=== PATIENT | female | born 1970 | race Caucasian/White ===

== ENCOUNTER 2016-10-23 17:26 | Emergency (ER) | payer SELFPAY ==
[~2016-10-23] VITALS: Ht 152.4 cm; Wt 61.2 kg
--- OUTSIDE RECORDS SUMMARY | 2016-10-23 17:32 | XMS REPORT | Continuity of Care Document ---
Author Author [facility] Organization [facility] Address Unknown Phone Unavailable Allergies Active Description Code Type Severity Reaction Onset Reported/Identified Relationship to Patient Clinical Status Yes meperidine [id number] Drug Allergy Unknown N/A 09/22/2005 Medications Problems Date Dx Coded Attending Type Code Diagnosis Diagnosed By 04/24/2015 COURTNEY LOTT Ot V76.12 Procedures Results Encounters ACCT No. Visit Date/Time Discharge Status Pt. Type Provider Facility Loc./Unit Complaint [id number] 04/08/2015 10:20:00 2014 23:59:59 CLS Outpatient COURTNEY LOTT [facility] [id number] 02/28/2014 08:43:00 2013 23:59:59 CLS Outpatient [id number] 07/24/2013 11:49:00 2012 23:59:59 CLS Outpatient
--- NOTE | 2016-10-23 17:53 | ED Abdominal Pain ---
General Chief Complaint: Abdominal/GI Problems Stated Complaint: ABD PAIN, BLOATING Source of Information: Patient Exam Limitations: No Limitations History of Present Illness Time Seen By Provider: 17:52 Initial Comments To ER with left lower quadrant abdominal pain/left suprapubic abdominal pain that radiates through to her back for the past few days. She is not sure exactly how many. The pain initially began as mild and intermittent but has become more constant. Today she has taken Motrin several times without relief and states that the pain is worsened by coughing and movement. She states that her abdomen is "bloated". There've been no changes in bowel habits with her last bowel movement being this morning and normal. No fevers or chills. No dysuria. No vomiting. She does have a history of a hysterectomy. Timing/Duration: 1-2 Days Severity/Quality: Moderate Location: LLQ Radiation: No Radiation, Back Activities at Onset: None Associated Symptoms: Nausea/Vomiting Allergies and Home Medications Allergies Coded Allergies: Meperidine (Verified Allergy, Unknown, 09/22/05) Home Medications Ciprofloxacin HCl 500 Mg Tablet #14 500 MG PO BID Prescribed by: ELOISA WILLARD on 10/23/161849 Dextroamphetamine/Amphetamine 10 Mg Tablet Unknown Dose PO DAILY (Reported) Hydrocodone/Acetaminophen 1 Each Tablet #14 1 EACH PO Q4H PRN PRN PAIN Prescribed by: ELOISA WILLARD on 10/23/161849 Metronidazole 500 Mg Tablet #21 500 MG PO TID Prescribed by: ELOISA WILLARD on 10/23/161849 Sertraline HCl 50 Mg Tablet 50 MG PO DAILY (Reported) Review of Systems Constitutional: see HPINo chills, No fever EENTM: No Symptoms Reported Respiratory: No Symptoms Reported Cardiovascular: No Symptoms Reported Gastrointestinal: See HPI Abdominal PainDenies Constipated, Denies Diarrhea, Denies Nausea, Denies Vomiting Genitourinary: No Symptoms Reported Musculoskeletal: no symptoms reported Skin: no symptoms reported Psychiatric/Neurological: No Symptoms Reported Endocrine: No Symptoms Reported Hematologic/Lymphatic: No Symptoms Reported Past Rgitqcw-Jimqie-Cwiaym Hx Patient Social History Recent Foreign Travel: No Contact w/Someone Who Travel: No Physical Exam Vital Signs VS - Last 72 Hours, by Label 10/23/16 17:45 Temp 97.8 Pulse 94 Resp 18 B/P 168/97 Pulse Ox 96 Capillary Refill : General Appearance: WD/WN no apparent distress HEENT: PERRL/EOMI normal ENT inspection Neck: non-tender full range of motion Respiratory: normal breath sounds no respiratory distress no accessory muscle use Cardiovascular: regular rate, rhythm no murmur Gastrointestinal: normal bowel sounds soft tenderness (Left lower quadrant) Extremities: normal range of motion non-tender Neurologic/Psychiatric: alert normal mood/affect oriented x 3 Skin: normal color warm/dry Focused Exam Lactic Acid Level Laboratory Tests Test 10/23/16 17:50 Alanine Aminotransferase (ALT/SGPT) 13U/L (0-55) Albumin 4.1G/DL (3.2-4.5) Alkaline Phosphatase 83U/L (40-136) Anion Gap 11MMOL/L (5-14) Aspartate Amino Transf (AST/SGOT) 16U/L (5-34) BUN/Creatinine Ratio 15 Blood Urea Nitrogen 14MG/DL (7-18) Calcium Level 9.2MG/DL (8.5-10.1) Carbon Dioxide Level 27MMOL/L (21-32) Chloride Level 105MMOL/L (98-107) Creatinine 0.95MG/DL (0.60-1.30) Estimat Glomerular Filtration Rate > 60 Glucose Level 83MG/DL (70-105) Potassium Level 3.3MMOL/L (3.6-5.0) L Sodium Level 143MMOL/L (135-145) Total Bilirubin 0.3MG/DL (0.1-1.0) Total Protein 7.0G/DL (6.4-8.2) Progress/Results/Core Measures Results/Orders Lab Results Laboratory Tests Test 10/23/16 17:50 Range/Units Alanine Aminotransferase (ALT/SGPT) 13 0-55 U/L Albumin 4.1 3.2-4.5 G/DL Alkaline Phosphatase 83 40-136 U/L Anion Gap 11 5-14 MMOL/L Aspartate Amino Transf (AST/SGOT) 16 5-34 U/L BUN/Creatinine Ratio 15 Basophils # (Auto) 0.0 0.0-0.1 10^3/uL Basophils (%) (Auto) 0 0-10 % Blood Urea Nitrogen 14 7-18 MG/DL Calcium Level 9.2 8.5-10.1 MG/DL Carbon Dioxide Level 27 21-32 MMOL/L Chloride Level 105 98-107 MMOL/L Creatinine 0.95 0.60-1.30 MG/DL Eosinophils # (Auto) 0.2 0.0-0.3 10^3/uL Eosinophils (%) (Auto) 1 0-10 % Estimat Glomerular Filtration Rate > 60 Glucose Level 83 70-105 MG/DL Hematocrit 42 35-52 % Hemoglobin 14.2 11.5-16.0 G/DL Lymphocytes # (Auto) 1.7 1.0-4.0 X 10^3 Lymphocytes (%) (Auto) 14 12-44 % Mean Corpuscular Hemoglobin 32 25-34 PG Mean Corpuscular Hemoglobin Concent 34 32-36 G/DL Mean Corpuscular Volume 94 80-99 FL Mean Platelet Volume 11.3 H 7.4-10.4 FL Monocytes # (Auto) 1.0 0.0-1.0 X 10^3 Monocytes (%) (Auto) 8 0-12 % Neutrophils # (Auto) 9.2 H 1.8-7.8 X 10^3 Neutrophils (%) (Auto) 76 H 42-75 % Platelet Count 191 130-400 10^3/uL Potassium Level 3.3 L 3.6-5.0 MMOL/L Red Blood Count 4.43 4.35-5.85 10^6/uL Red Cell Distribution Width 14.6 H 10.0-14.5 % Sodium Level 143 135-145 MMOL/L Total Bilirubin 0.3 0.1-1.0 MG/DL Total Protein 7.0 6.4-8.2 G/DL Urine Bacteria FEW H /HPF Urine Bilirubin NEGATIVE NEGATIVE Urine Casts NONE /LPF Urine Clarity SLIGHTLY CLOUDY Urine Color YELLOW Urine Crystals NONE /LPF Urine Culture Indicated YES Urine Glucose (UA) NEGATIVE NEGATIVE Urine Ketones NEGATIVE NEGATIVE Urine Leukocyte Esterase 2+ H NEGATIVE Urine Mucus NEGATIVE /LPF Urine Nitrite NEGATIVE NEGATIVE Urine Protein 1+ H NEGATIVE Urine RBC 5-10 H /HPF Urine RBC (Auto) 3+ H NEGATIVE Urine Specific [place] 1.020 1.016-1.022 Urine Squamous Epithelial Cells >50 H /HPF Urine Urobilinogen 1 NORMAL MG/DL Urine WBC 10-25 H /HPF Urine pH 6 5-9 White Blood Count 12.0 H 4.3-11.0 10^3/uL My Orders Orders-ELOISA WILLARD SPLITTER HAND Cbc With Automated Diff (10/23/16 17:50) Comprehensive Metabolic Panel (10/23/16 17:50) Ua Culture If Indicated (10/23/16 17:50) Saline Lock/Iv-Start (10/23/16 17:50) Fentanyl Injection (Sublimaze Injection (10/23/16 18:00) Ct Abdomen/Pelvis W (10/23/16 18:14) Iohexol Injection (Omnipaque 350 Mg/Ml 1 (10/23/16 18:15) Ns (Ivpb) (Sodium Chloride 0.9% Ivpb Bag (10/23/16 18:15) Urine Culture (10/23/16 17:50) Piperacillin Sodium/Tazobactam (Zosyn Vi (10/23/16 18:45) Ketorolac Injection (Toradol Injection) (10/23/16 19:30) Oxycodone/Apap 5/325mg Tablet (Percocet (10/23/16 19:30) Medications Given in ED Current Medications Medications Dose Ordered Sig/Parmjit Route Start Time Stop Time Status Last Admin Dose Admin Fentanyl Citrate 50 mcg ONCE ONCE IVP 10/23/16 18:00 10/23/16 18:01 DC 10/23/16 18:06 50 MCG Iohexol 100 ml ONCE ONCE IV 10/23/16 18:15 10/23/16 18:16 UNV 10/23/16 18:28 100 ML Piperacillin Sod/ Tazobactam Sod/ Sodium Chloride 100 ml @ 200 mls/hr ONCE ONCE IV 10/23/16 18:45 10/23/16 19:14 DC 10/23/16 19:10 200 MLS/HR Sodium Chloride 100 ml 100 ml ONCE ONCE IV 10/23/16 18:15 10/23/16 18:16 UNV 10/23/16 18:28 80 ML Vital Signs/I&O Vital Sign - Last 12Hours 10/23/16 17:45 Temp 97.8 Pulse 94 Resp 18 B/P 168/97 Pulse Ox 96 Departure Communication Progress Notes 1921-She is able to tolerate by mouth intake, is without intractable pain nausea or vomiting or any stools. As such she would be a good candidate for outpatient therapy and her CT scan shows acute diverticulitis but no evidence of abscess or free air. Impression Impression: Primary Impression: Diverticulitis of intestine Additional Impression: Urinary tract infection Disposition: HOME, SELF-CARE Condition: Stable Departure-Patient Inst. Decision time for Depature: 18:48 Referrals: RAE TRINIDAD DO (PCP/Family) Primary Care Physician Patient Instructions: Diverticulitis Add. Discharge Instructions: 1. Clear liquids only for the next 12-24 hours. Ater this you may resume a more normal diet but be sure to avoid seeds and nuts such as popcorn 2. Antibiotics as directed 3. Return to ER for any worsening pain fevers or other concerns 4. Follow-up with your regular doctor within 5 days for recheck All discharge instructions reviewed with patient and/or family. Voiced understanding. 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
[2016-10-23] MEDS ORDERED: SERT50TA2 PO (17:55)
[2016-10-23] MEDS ORDERED: DEXT10TA9 PO (17:55)
[2016-10-23] MEDS ORDERED: fentaNYL INJECTION 100 MCG/2 ML AMP IVP ONE (18:00)
[2016-10-23 18:10] LABS: BASOPHILS % (AUTO) 0 % (0-10); BILIRUBIN,URINE NEGATIVE (NEGATIVE); EOSINOPHILS # (AUTO) 0.2 10^3/uL (0.0-0.3); EOSINOPHILS % (AUTO) 1 % (0-10); KETONES,URINE NEGATIVE (NEGATIVE); LEUKOCYTE ESTERASE ,URINE 2+ (NEGATIVE); LYMPHOCYTES # (AUTO) 1.7 X 10^3 (1.0-4.0); LYMPHOCYTES % (AUTO) 14 % (12-44); MEAN CORPUSCULAR HEMOGLOBIN 32 PG (25-34); MEAN CORPUSCULAR HGB CONC 34 G/DL (32-36); MEAN CORPUSCULAR VOLUME 94 FL (80-99); MEAN PLATELET VOLUME 11.3 FL (7.4-10.4); MONOCYTES % (AUTO) 8 % (0-12); NEUTROPHILS # (AUTO) 9.2 X 10^3 (1.8-7.8); NEUTROPHILS % (AUTO) 76 % (42-75); NITRITE,URINE NEGATIVE (NEGATIVE); PH,URINE 6 (5-9); PLATELET COUNT 191 10^3/uL (130-400); PROTEIN,URINE 1+ (NEGATIVE); RED BLOOD COUNT 4.43 10^6/uL (4.35-5.85); RED CELL DISTRIBUTION WIDTH 14.6 % (10.0-14.5); UROBILINOGEN,URINE 1 MG/DL (NORMAL)
[2016-10-23] MEDS ORDERED: NS 100 ML (IVPB) BAG IV ONE (18:15)
[2016-10-23] MEDS ORDERED: IOHEXOL 350 MG/ML 100 ML (OMNIPAQUE 350) VIAL IV ONE (18:15)
[2016-10-23 18:16] LABS: SQUAMOUS EPITHELIAL CELL,UR >50 /HPF
[2016-10-23 18:29] LABS: ALANINE AMINOTRANSFERASE 13 U/L (0-55); ALBUMIN 4.1 G/DL (3.2-4.5); ANION GAP 11 MMOL/L (5-14); ASPARTATE AMINO TRANSFERASE 16 U/L (5-34); BILIRUBIN,TOTAL 0.3 MG/DL (0.1-1.0); BLOOD UREA NITROGEN 14 MG/DL (7-18); BUN/CREATININE RATIO 15; CALCIUM 9.2 MG/DL (8.5-10.1); CARBON DIOXIDE 27 MMOL/L (21-32); CHLORIDE 105 MMOL/L (98-107); CREATININE SERUM 0.95 MG/DL (0.60-1.30); GFR ESTIMATED > 60; GLUCOSE 83 MG/DL (70-105); POTASSIUM 3.3 MMOL/L (3.6-5.0); SODIUM 143 MMOL/L (135-145)
[2016-10-23] MEDS ORDERED: PIPERACILLIN SODIUM/TAZOBACTAM 4.5 GM in NS (IVPB) 100 ML IV ONE (18:45)
[2016-10-23] MEDS ORDERED: METR500T PO (18:50)
[2016-10-23] MEDS ORDERED: CIPR-225 PO (18:50)
[2016-10-23] MEDS ORDERED: HYDR-757 PO (18:50)
--- NOTE | 2016-10-23 19:10 | Diagnostic Imaging Report ---
PROCEDURE: CT abdomen and pelvis with contrast. TECHNIQUE: Multiple contiguous axial images were obtained through the abdomen and pelvis after administration of intravenous contrast. INDICATION: Abdominal pain with bloating. Left lower quadrant tenderness. Previous hysterectomy. COMPARISON: Correlation with plain films from August 14, 2010. FINDINGS: The visualized lung bases demonstrates mild dependent atelectasis and are otherwise clear. The liver demonstrates no evidence of a focal intrahepatic abnormality. The gallbladder is nondistended without radiodense gallstone or biliary dilatation. The spleen is unremarkable. There is no adrenal mass. The kidneys enhance normally and appear nonobstructed. The pancreas is unremarkable. The small and large bowel are normal in caliber without evidence of obstruction. There is abnormal thickening and soft tissue induration demonstrated about the sigmoid colon where there are also diverticula. Findings are compatible with a diverticulitis. There is no abscess or evidence of free air. There is a trace degree of free fluid within the low pelvis. The appendix is normal. Urinary bladder is unremarkable. Patient is status post hysterectomy. There is no pathologic adenopathy. The aorta is normal in caliber. No acute or suspicious osseous abnormality is demonstrated. IMPRESSION: 1. Acute sigmoid diverticulitis without evidence of bowel obstruction, free air or abscess. There is a small degree of free fluid within the low pelvis. 2. Previous hysterectomy. Dictated by: Dictated on workstation # [id number]
[2016-10-23] MEDS ORDERED: oxyCODONE/APAP 5/325MG (PERCOCET 5) TABLET PO ONE (19:30)
[2016-10-23] MEDS ORDERED: KETOROLAC 30 MG/ML VIAL IVP ONE (19:30)
[2016-10-23 19:51] VITALS: BP 181/102
== END 2016-10-23 19:51 | disposition home or self-care (01) ==
LOC: EDUNIT# 17:26 → ER 17:28
DX: K57.32 Diverticulitis of large intestine without perforation or abscess without bleeding (principal); N39.0 Urinary tract infection, site not specified
CPT/HCPCS: 36415; 74177; 80053; 81000; 85025; 87088; 96374; 96375

== ENCOUNTER 2018-06-05 20:42 | Emergency (ER) | payer OTHER ==
[~2018-06-05] VITALS: Ht 152.4 cm; Wt 61.2 kg
[~2018-06-05 20:42] MED LIST: CIPR-225 PO; DEXT10TA9 PO; HYDR-4226 PO; METR500T PO; SERT50TA2 PO
[2018-06-05 21:44] LABS: BILIRUBIN,URINE NEGATIVE (NEGATIVE); CLARITY,URINE CLEAR; COLOR,URINE YELLOW; GLUCOSE, URINE (UA) NEGATIVE (NEGATIVE); KETONES,URINE NEGATIVE (NEGATIVE); LEUKOCYTE ESTERASE ,URINE 1+ (NEGATIVE); NITRITE,URINE NEGATIVE (NEGATIVE); PH,URINE 7 (5-9); PROTEIN,URINE NEGATIVE (NEGATIVE); UROBILINOGEN,URINE NORMAL (NORMAL)
[2018-06-05 21:57] LABS: BACTERIA,URINE TRACE /HPF; RBC,URINE 0-2 /HPF; SQUAMOUS EPITHELIAL CELL,UR 0-2 /HPF; WBC,URINE 0-2 /HPF
[2018-06-05] MEDS ORDERED: KETOROLAC 30 MG/ML VIAL IVP ONE (22:00)
--- NOTE | 2018-06-05 22:00 | ED Abdominal Pain ---
General Stated Complaint: R SIDE LOWER BACK PAIN Source of Information: Patient Exam Limitations: No Limitations History of Present Illness Date Seen by Provider: Jun 05, 2018 Time Seen by Provider: 21:42 Initial Comments The patient presents to the ER by private conveyance with chief complaint that since Tuesday, 4 days now she's been having some right lower quadrant abdominal pain that radiates to her right back. She has no history of kidney stones. She has a history of endometriosis for which Dr. Hui took her uterus and ovaries bilaterally. She's also had a times one but no other abdominal surgeries. She's not having any nausea but she does have pain gets worse with movement. She went to the ER at [place] they did a CT scan some blood and urine on Tuesday, 2 days ago and told her they thought she was constipated. She went home drink a lot of magnesium oxide on Tuesday and had multiple bowel movements which made no difference in her pain. It's continued to get worse. She rates it about a 7 out of 10 presently. She's been using Tylenol, Motrin and the tramadol that she was given from the ER. She is also on Zoloft and Adderall for her chronic depression and ADHD. She's had no fevers but she is having some chills. No rash. No history of back problems or surgery. No trauma. She has no painful urination or hematuria. No dyspareunia and she is in a monogamous relationship. She denies any discharge or history of STI's. Allergies and Home Medications Allergies Coded Allergies: meperidine (Verified Allergy, Unknown, 09/22/05) Home Medications Ciprofloxacin HCl 500 Mg Tablet, 500 MG PO BID Prescribed by: ELOISA WILLARD on 10/23/161849 Dextroamphetamine/Amphetamine 10 Mg Tablet, Unknown Dose PO DAILY, (Reported) Hydrocodone/Acetaminophen 1 Each Tablet, 1 EACH PO Q4H PRN for PAIN Prescribed by: ELOISA WILLARD on 10/23/161849 Metronidazole 500 Mg Tablet, 500 MG PO TID Prescribed by: ELOISA WILLARD on 10/23/161849 Sertraline HCl 50 Mg Tablet, 50 MG PO DAILY, (Reported) Patient Home Medication List Home Medication List Reviewed: Yes Review of Systems Review of Systems Constitutional: No chills, No diaphoresis EENTM: No Blurred Vision, No Double Vision Respiratory: Denies Cough, Denies Shortness of Air Cardiovascular: Denies Chest Pain, Denies Edema Gastrointestinal: See HPI; Denies Abdomen Distended; Abdominal Pain Genitourinary: Denies Burning, Denies Discharge Musculoskeletal: see HPI, back pain; No joint pain Skin: No change in color, No lumps Psychiatric/Neurological: Denies Anxiety, Denies Depressed Past Ygzehio-Hmjccz-Qwwsdl Hx Patient Social History Alcohol Use: Regular Use Alcohol Beverage of Choice: Beer (2-3 week) Recreational Drug Use: No Smoking Status: Current Everyday Smoker Type Used: Cigarettes (0.5 ppd) Recent Foreign Travel: No Contact w/Someone Who Travel: No 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 oz. [id number]; BMI Method:Stated General Appearance: WD/WN, mild distress HEENT: PERRL/EOMI Respiratory: lungs clear, normal breath sounds, no respiratory distress Cardiovascular: normal peripheral pulses, regular rate, rhythm, no edema Peripheral Pulses: 2+ Dorsalis Pedis (R), 2+ Left Dors-Pedis (L) Gastrointestinal: normal bowel sounds, soft, tenderness (Right lower quadrant without rebound tenderness at McBurney's point), other (Negative for Price sign ) Back: normal inspection, CVA tenderness (R) Neurologic/Psychiatric: alert, oriented x 3 Progress/Results/Core Measures Results/Orders Lab Results Laboratory Tests Test 06/05/18 21:30 06/05/18 22:05 Range/Units Urine Color YELLOW Urine Clarity CLEAR Urine pH 7 5-9 Urine Specific [place] 1.010 L 1.016-1.022 Urine Protein NEGATIVE NEGATIVE Urine Glucose (UA) NEGATIVE NEGATIVE Urine Ketones NEGATIVE NEGATIVE Urine Nitrite NEGATIVE NEGATIVE Urine Bilirubin NEGATIVE NEGATIVE Urine Urobilinogen NORMAL NORMAL MG/DL Urine Leukocyte Esterase 1+ H NEGATIVE Urine RBC (Auto) 1+ H NEGATIVE Urine RBC 0-2 /HPF Urine WBC 0-2 /HPF Urine Squamous Epithelial Cells 0-2 /HPF Urine Crystals NONE /LPF Urine Bacteria TRACE /HPF Urine Casts NONE /LPF Urine Mucus NEGATIVE /LPF Urine Culture Indicated NO Urine Test NEGATIVE NEGATIVE Urine Opiates Screen NEGATIVE NEGATIVE Urine Oxycodone Screen NEGATIVE NEGATIVE Urine Methadone Screen NEGATIVE NEGATIVE Urine Propoxyphene Screen NEGATIVE NEGATIVE Urine Barbiturates Screen NEGATIVE NEGATIVE Ur Tricyclic Antidepressants Screen NEGATIVE NEGATIVE Urine Phencyclidine Screen NEGATIVE NEGATIVE Urine Amphetamines Screen POSITIVE H NEGATIVE Urine Methamphetamines Screen NEGATIVE NEGATIVE Urine Benzodiazepines Screen NEGATIVE NEGATIVE Urine Cocaine Screen NEGATIVE NEGATIVE Urine Cannabinoids Screen NEGATIVE NEGATIVE White Blood Count 10.8 4.3-11.0 10^3/uL Red Blood Count 4.26 L 4.35-5.85 10^6/uL Hemoglobin 13.6 11.5-16.0 G/DL Hematocrit 41 35-52 % Mean Corpuscular Volume 96 80-99 FL Mean Corpuscular Hemoglobin 32 25-34 PG Mean Corpuscular Hemoglobin Concent 33 32-36 G/DL Red Cell Distribution Width 14.7 H 10.0-14.5 % Platelet Count 199 130-400 10^3/uL Mean Platelet Volume 11.2 H 7.4-10.4 FL Neutrophils (%) (Auto) 71 42-75 % Lymphocytes (%) (Auto) 21 12-44 % Monocytes (%) (Auto) 6 0-12 % Eosinophils (%) (Auto) 1 0-10 % Basophils (%) (Auto) 1 0-10 % Neutrophils # (Auto) 7.7 1.8-7.8 X 10^3 Lymphocytes # (Auto) 2.3 1.0-4.0 X 10^3 Monocytes # (Auto) 0.7 0.0-1.0 X 10^3 Eosinophils # (Auto) 0.1 0.0-0.3 10^3/uL Basophils # (Auto) 0.1 0.0-0.1 10^3/uL Sodium Level 139 135-145 MMOL/L Potassium Level 3.5 L 3.6-5.0 MMOL/L Chloride Level 101 98-107 MMOL/L Carbon Dioxide Level 28 21-32 MMOL/L Anion Gap 10 5-14 MMOL/L Blood Urea Nitrogen 19 H 7-18 MG/DL Creatinine 1.07 0.60-1.30 MG/DL Estimat Glomerular Filtration Rate 55 BUN/Creatinine Ratio 18 Glucose Level 90 70-105 MG/DL Calcium Level 9.6 8.5-10.1 MG/DL Corrected Calcium 9.4 8.5-10.1 MG/DL Total Bilirubin 0.2 0.1-1.0 MG/DL Aspartate Amino Transf (AST/SGOT) 24 5-34 U/L Alanine Aminotransferase (ALT/SGPT) 17 0-55 U/L Alkaline Phosphatase 74 40-136 U/L C-Reactive Protein High Sensitivity 0.38 0.00-0.50 MG/DL Total Protein 7.3 6.4-8.2 GM/DL Albumin 4.3 3.2-4.5 GM/DL My Orders Orders - BRIGIDA NEWTON Ua Culture If Indicated (06/05/18 20:55) Urine Bedside (06/05/18 20:55) Cbc With Automated Diff (06/05/18 21:52) Comprehensive Metabolic Panel (06/05/18 21:52) Hs C Reactive Protein (06/05/18 21:52) Drug Screen Stat (Urine) (06/05/18 21:52) Saline Lock/Iv-Start (06/05/18 21:52) Ketorolac Injection (Toradol Injection) (06/05/18 22:00) Ct Abd/Pelvis Wo(Kidney Stone) (06/05/18 22:07) Hcg,Qualitative Urine (06/05/18 22:17) Medications Given in ED Current Medications Medications Dose Ordered Sig/Parmjit Route Start Time Stop Time Status Last Admin Dose Admin Ketorolac Tromethamine 30 mg ONCE ONCE IVP 06/05/18 22:00 06/05/18 22:01 DC 06/05/18 22:12 30 MG Progress Progress Note : Time: 21:58 Progress Note UTI/pyelonephritis versus kidney stone. Discussed the case with ER provider at [place], [place]. Dr. Oneil: He reviewed the patient's note and is pretty much as she described. She received abdominal pelvic CT with IV contrast. There is diverticulosis without diverticulitis. Appendix is well-visualized and there is no primary or secondary signs of appendicitis. Very possible OB and IV contrast study today ureteral calculus could be missed. Diagnostic Imaging Diagonstic Imaging: CT (Without contrast) Plain Films/CT/US/NM/MRI: abdomen, pelvis Comments Mild diverticulosis without diverticulitis. Otherwise CT abdomen and pelvis normal. Appendix is normal and visualized. No free fluid. No bowel obstruction or constipation. Reviewed: Reviewed by Me Departure Impression Primary Impression: Abdominal pain Qualified Codes: R10.31 - Right lower quadrant pain Additional Impression: Acute back pain Qualified Codes: M54.5 - Low back pain Disposition: 01 HOME, SELF-CARE Condition: Stable Departure-Patient Inst. Decision time for Depature: 00:03 Referrals: NO,LOCAL PHYSICIAN (PCP) Primary Care Physician NAHUM SHEPPARD MD Patient Instructions: Acute Abdomen (Belly Pain), Adult (DC) Add. Discharge Instructions: There is no evidence of any life-threatening changes in your belly causing your pain. Possibilities include back pain since her pain did respond well to the NSAIDs or recommend you take Aleve 2 capsules twice a day for the next 1-2 weeks on a schedule. Also could be reactivation of your endometriosis, adhesions or scar tissue forming within the belly and you could follow-up with Dr. 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 You can also use Tylenol 500 mg every 6 hours as needed and if you still cannot stand your pain you can use one tablet of hydrocodone every 6 hours as needed. Hydrocodone will cause constipation and drowsiness. Scripts Hydrocodone Bit/Acetaminophen (Hydrocodone/Acetaminophen 5/325mg Tablet) 1 Tab Tab 1 EACH PO Q6H PRN for PAIN-MODERATE MDD 10 for 7 Days, #10 TAB 0 Refills Prov: BRIGIDA NEWTON 06/06/18 Copy Copies To 1: NAHUM SHEPPARD MD, TITUS J Jun 05, 2018 22:00
[2018-06-05 22:12] LABS: AMPHETAMINE SCREEN, URINE POSITIVE (NEGATIVE); BARBITURATE SCREEN URINE NEGATIVE (NEGATIVE); BENZODIAZEPINES SCREEN URINE NEGATIVE (NEGATIVE); CANNABINOID SCREEN, URINE NEGATIVE (NEGATIVE); COCAINE SCREEN URINE NEGATIVE (NEGATIVE); METHADONE STAT NEGATIVE (NEGATIVE); METHAMPHETAMINE SCREEN URINE S NEGATIVE (NEGATIVE); OPIATE SCREEN URINE NEGATIVE (NEGATIVE); OXYCODONE STAT NEGATIVE (NEGATIVE); PROPOXYPHENE STAT NEGATIVE (NEGATIVE); TRICYCLIC ANTIDEPRESSANTS SCRE NEGATIVE (NEGATIVE)
[2018-06-05 22:13] LABS: BASOPHILS # (AUTO) 0.1 10^3/uL (0.0-0.1); BASOPHILS % (AUTO) 1 % (0-10); EOSINOPHILS # (AUTO) 0.1 10^3/uL (0.0-0.3); EOSINOPHILS % (AUTO) 1 % (0-10); HEMATOCRIT 41 % (35-52); HEMOGLOBIN 13.6 G/DL (11.5-16.0); LYMPHOCYTES # (AUTO) 2.3 X 10^3 (1.0-4.0); LYMPHOCYTES % (AUTO) 21 % (12-44); MEAN CORPUSCULAR HEMOGLOBIN 32 PG (25-34); MEAN CORPUSCULAR HGB CONC 33 G/DL (32-36); MEAN CORPUSCULAR VOLUME 96 FL (80-99); MEAN PLATELET VOLUME 11.2 FL (7.4-10.4); MONOCYTES # (AUTO) 0.7 X 10^3 (0.0-1.0); MONOCYTES % (AUTO) 6 % (0-12); NEUTROPHILS # (AUTO) 7.7 X 10^3 (1.8-7.8); NEUTROPHILS % (AUTO) 71 % (42-75); PLATELET COUNT 199 10^3/uL (130-400); RED BLOOD COUNT 4.26 10^6/uL (4.35-5.85); RED CELL DISTRIBUTION WIDTH 14.7 % (10.0-14.5); WHITE BLOOD COUNT 10.8 10^3/uL (4.3-11.0)
[2018-06-05 22:33] LABS: ALBUMIN 4.3 GM/DL (3.2-4.5); BILIRUBIN,TOTAL 0.2 MG/DL (0.1-1.0); CALCIUM 9.6 MG/DL (8.5-10.1); CREATININE SERUM 1.07 MG/DL (0.60-1.30); POTASSIUM 3.5 MMOL/L (3.6-5.0); TOTAL PROTEIN 7.3 GM/DL (6.4-8.2)
[2018-06-06] MEDS ORDERED: ACHD5005 PO (00:09)
[2018-06-06 00:12] VITALS: BP 161/101
--- NOTE | 2018-06-06 07:17 | Diagnostic Imaging Report ---
PROCEDURE: CT urinary tract, rule out kidney stone. TECHNIQUE: Multiple contiguous axial images were obtained through the abdomen and pelvis without the use of intravenous contrast. INDICATION: Right flank pain COMPARISON: 10/23/2016 FINDINGS: Evaluation of the abdominal viscera is mildly limited without contrast. Lower chest: The lung bases are clear. No pericardial or pleural effusion. Peritoneum: No free intraperitoneal air or fluid. Liver and biliary system: Unenhanced liver is normal. The gallbladder is normal. No biliary duct dilation. Spleen and Pancreas: Spleen is normal. Unenhanced pancreas is grossly normal. Adrenals: Normal. tract: No renal or ureteral calculi. No obstructive uropathy. Hysterectomy. No adnexal mass. GI tract: Stomach is decompressed. No bowel obstruction. No pericolonic inflammatory changes. Sigmoid colon diverticulosis without diverticulitis. Normal appendix. Vasculature and Lymph nodes: Normal caliber aorta. No abdominal or pelvic lymphadenopathy. Musculoskeletal: No concerning osseous lesion. IMPRESSION: 1. No urinary tract calculi or obstructive uropathy. 2. No acute inflammatory process. 3. Findings are in agreement with the preliminary report. Dictated by: Dictated on workstation # [id number]
== END 2018-06-06 00:14 | disposition home or self-care (01) ==
LOC: EDUNIT# 20:42 → ER 20:43
DX: M54.5 Low back pain (principal); R10.31 Right lower quadrant pain; F32.9 Major depressive disorder, single episode, unspecified; F90.9 Attention-deficit hyperactivity disorder, unspecified type; F17.210 Nicotine dependence, cigarettes, uncomplicated; Z88.8 Allergy status to other drugs, medicaments and biological substances; Z98.890 Other specified postprocedural states; Z90.710 Acquired absence of both cervix and uterus
CPT/HCPCS: 36415; 74176; 80053; 80306; 81000; 84703; 85025; 86141; 96374

== ENCOUNTER 2020-02-18 07:47 | Inpatient (IN) | payer OTHER ==
[2020-02-18] VITALS (13 sets, daily range): BP systolic 82–145; BP diastolic 56–98
[~2020-02-18] VITALS: Ht 154 cm; Wt 60.0 kg
[~2020-02-18 07:47] MED LIST changes: +ACHD5005 PO
[2020-02-18] MEDS: NITROGLYCERIN 0.4 MG SL TABS BTL 25'S SL PRN ×3 (08:08→08:27)
[2020-02-18] MEDS ORDERED: ASPIRIN 81 MG CHEW (CHILDREN'S ASA) PO ONE (08:15)
--- NOTE | 2020-02-18 08:15 | Diagnostic Imaging Report ---
INDICATION: Shortness of breath and intermittent chest pain x2 days. History of tobacco use.. TECHNIQUE: Single view chest 8:07 AM. CORRELATION STUDY: None FINDINGS: The heart size, mediastinal configuration and pulmonary vascularity are within normal limits. The lungs are slightly hyperinflated but overall appearing clear with no consolidating infiltrate. There is no significant effusion or pneumothorax. IMPRESSION: 1. Negative for acute abnormality of the chest. Dictated by: Dictated on workstation # [id number]
[2020-02-18 08:19] LABS: BASOPHILS # (AUTO) 0.1 10^3/uL (0.0-0.1); BASOPHILS % (AUTO) 1 % (0-10); EOSINOPHILS # (AUTO) 0.2 10^3/uL (0.0-0.3); EOSINOPHILS % (AUTO) 2 % (0-10); HEMATOCRIT 43 % (35-52); HEMOGLOBIN 14.5 G/DL (11.5-16.0); LYMPHOCYTES # (AUTO) 2.2 X 10^3 (1.0-4.0); LYMPHOCYTES % (AUTO) 24 % (12-44); MEAN CORPUSCULAR HEMOGLOBIN 32 PG (25-34); MEAN CORPUSCULAR HGB CONC 34 G/DL (32-36); MEAN CORPUSCULAR VOLUME 95 FL (80-99); MEAN PLATELET VOLUME 11.7 FL (7.4-10.4); MONOCYTES # (AUTO) 0.5 X 10^3 (0.0-1.0); MONOCYTES % (AUTO) 6 % (0-12); NEUTROPHILS # (AUTO) 6.1 X 10^3 (1.8-7.8); NEUTROPHILS % (AUTO) 67 % (42-75); PLATELET COUNT 218 10^3/uL (130-400); RED CELL DISTRIBUTION WIDTH 14.9 % (10.0-14.5); WHITE BLOOD COUNT 9.1 10^3/uL (4.3-11.0)
--- NOTE | 2020-02-18 08:24 | ED Cardiac General ---
History of Present Illness General Chief Complaint: Chest Pain Stated Complaint: CHEST PAIN; SOB Nursing Triage Note: Has been having shortness of breath and intermittent chest pain x 2 days. Chest pain has been constant today and is currently rated at 6/10. Denies fevers, nausea, or vomiting. Is also complaining of fatigue. Has a cough, but states she is a smoker and normally coughs. Source: patient History of Present Illness Date Seen by Provider: Feb 18, 2020 Time Seen by Provider: 08:00 Initial Comments Patient is a 50-year-old female with history of hypertension, tobaccoism and daily alcohol use who presents with central chest burning, exertional dyspnea and bilateral shoulder pain and numbness. Symptom onset was 2 days ago and gradually progressed. Patient states she feels dizzy lightheaded unable to catch her breath and feeling as though she may pass out. This morning while at work, patient was unable to perform any lifting prompting her to drive to the emergency department. Patient denies history of CAD. Denies fever, cough, sore throat, nausea, vomiting, sweats. No abdominal pain. No leg pain swelling. No history of DVT or PE. Patient does not have menstrual periods. No other acute symptoms or complaints. Timing/Duration: 2-3 days Severity: moderate Location: shoulder Activities at Onset: activity Prior CP/Workup: other Modifying Factors: improves with exercise NTG SL TUB TENDER: No ASA po TUB TENDER: No Associated Systoms: Shortness of Air, Other Allergies and Home Medications Allergies Coded Allergies: meperidine (Verified Allergy, Unknown, 09/22/05) Home Medications Ciprofloxacin HCl 500 Mg Tablet, 500 MG PO BID Prescribed by: ELOISA WILLARD on 10/23/161849 Dextroamphetamine/Amphetamine 10 Mg Tablet, Unknown Dose PO DAILY, (Reported) Hydrocodone Bit/Acetaminophen 1 Tab Tab, 1 EACH PO Q6H PRN for PAIN-MODERATE Prescribed by: BRIGIDA NEWTON on 06/06/18 000 Hydrocodone/Acetaminophen 1 Each Tablet, 1 EACH PO Q4H PRN for PAIN Prescribed by: ELOISA WILLARD on 10/23/161849 Metronidazole 500 Mg Tablet, 500 MG PO TID Prescribed by: ELOISA WILLARD on 10/23/161849 Sertraline HCl 50 Mg Tablet, 50 MG PO DAILY, (Reported) Patient Home Medication List Home Medication List Reviewed: Yes Review of Systems Review of Systems Constitutional: see HPI EENTM: See HPI Respiratory: See HPI Cardiovascular: See HPI Gastrointestinal: See HPI Genitourinary: See HPI Musculoskeletal: see HPI Skin: see HPI Psychiatric/Neurological: See HPI Hematologic/Lymphatic: See HPI Past Ugafvaa-Rdeool-Xupyul Hx Past Med/Social Hx: Reviewed Nursing Past Med/Soc Hx Patient Social History Alcohol Use: Occasionally Uses Number of Drinks Today: AA Alcohol Beverage of Choice: Beer Recreational Drug Use: No Smoking Status: Current Everyday Smoker Type Used: Cigarettes 2nd Hand Smoke Exposure: Yes Recent Foreign Travel: No Contact w/Someone Who Travel: No Recent Infectious Disease Expo: No Recent Hopitalizations: No Immunizations Up To Date Tetanus Booster (TDap): Unknown Seasonal Allergies Seasonal Allergies: No Past Medical History Surgeries: Yes Section, Hysterectomy Respiratory: No Cardiac: Yes Hypertension 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 oz. 61.241366tw; 24.00 BMI Method:Stated General Appearance: No Apparent Distress, WD/WN, Anxious HEENT: PERRL/EOMI, Other Neck: Full Range of Motion, Non Tender, Supple Respiratory: Chest Non Tender, Lungs Clear, Normal Breath Sounds Cardiovascular: Regular Rate, Rhythm, No Edema, Other (negative Homans signs.) Gastrointestinal: Non Tender, Soft Extremity: Swelling Neurologic/Psychiatric: Alert, Oriented x3 Focused Exam Sepsis Stage: Ruled Out Progress/Results/Core Measures Results/Orders Lab Results Laboratory Tests Test 02/18/20 07:57 Range/Units White Blood Count 9.1 4.3-11.0 10^3/uL Red Blood Count 4.52 4.35-5.85 10^6/uL Hemoglobin 14.5 11.5-16.0 G/DL Hematocrit 43 35-52 % Mean Corpuscular Volume 95 80-99 FL Mean Corpuscular Hemoglobin 32 25-34 PG Mean Corpuscular Hemoglobin Concent 34 32-36 G/DL Red Cell Distribution Width 14.9 H 10.0-14.5 % Platelet Count 218 130-400 10^3/uL Mean Platelet Volume 11.7 H 7.4-10.4 FL Neutrophils (%) (Auto) 67 42-75 % Lymphocytes (%) (Auto) 24 12-44 % Monocytes (%) (Auto) 6 0-12 % Eosinophils (%) (Auto) 2 0-10 % Basophils (%) (Auto) 1 0-10 % Neutrophils # (Auto) 6.1 1.8-7.8 X 10^3 Lymphocytes # (Auto) 2.2 1.0-4.0 X 10^3 Monocytes # (Auto) 0.5 0.0-1.0 X 10^3 Eosinophils # (Auto) 0.2 0.0-0.3 10^3/uL Basophils # (Auto) 0.1 0.0-0.1 10^3/uL Sodium Level 143 135-145 MMOL/L Potassium Level 3.6 3.6-5.0 MMOL/L Chloride Level 101 98-107 MMOL/L Carbon Dioxide Level 30 21-32 MMOL/L Anion Gap 12 5-14 MMOL/L Blood Urea Nitrogen 12 7-18 MG/DL Creatinine 0.82 0.60-1.30 MG/DL Estimat Glomerular Filtration Rate > 60 BUN/Creatinine Ratio 15 Glucose Level 93 70-105 MG/DL Calcium Level 9.2 8.5-10.1 MG/DL Corrected Calcium 8.8 8.5-10.1 MG/DL Total Bilirubin 0.3 0.1-1.0 MG/DL Aspartate Amino Transf (AST/SGOT) 19 5-34 U/L Alanine Aminotransferase (ALT/SGPT) 15 0-55 U/L Alkaline Phosphatase 94 40-136 U/L Troponin I < 0.30 <0.30 NG/ML Pro-B-Type Natriuretic Peptide 94.7 H <75.0 PG/ML Total Protein 7.1 6.4-8.2 GM/DL Albumin 4.5 3.2-4.5 GM/DL My Orders Jessie - ZANE SHARMA DO Cbc With Automated Diff (02/18/20 08:02) Comprehensive Metabolic Panel (02/18/20 08:02) Troponin I Fs (02/18/20 08:02) Probnp Fs (02/18/20 08:02) Fibrin Degradation Products (02/18/20 08:02) Chest 1 View Ap/Pa Only (02/18/20 08:02) Aspirin Chewable Tablet (Baby Aspirin Ch (02/18/20 08:15) Nitroglycerin 0.4 Mg Btl 25's (Nitrostat (02/18/20 08:15) Ekg Tracing (02/18/20 08:13) Ekg Tracing (02/18/20 08:23) Coronavirus Sars-Cov-2 So 2018 (02/18/20 08:29) Fentanyl Injection (Sublimaze Injection (02/18/20 08:45) Ondansetron Injection (Zofran Injectio (02/18/20 08:45) Heparin Drip 49228 Unit/500ml (Heparin (02/18/20 08:34) Heparin (Bolus Per Protocol) (Heparin (B (02/18/20 08:34) Protime With Inr (02/18/20 08:34) Nitro Drip 83605 Mcg/D5w (Nitroglycerin (02/18/20 08:45) Ticagrelor Tablet (Brilinta Tablet) (02/18/20 09:00) Medications Given in ED Current Medications Medications Dose Ordered Sig/Parmjit Route Start Time Stop Time Status Last Admin Dose Admin Aspirin 324 mg ONCE ONCE PO 02/18/20 08:15 02/18/20 08:16 DC 02/18/20 08:08 324 MG Nitroglycerin 1 TAB Q 5 MIN X 3 NEEDED PRN SL 02/18/20 08:15 02/18/20 08:27 0.4 MG Vital Signs/I&O 02/18/20 07:55 Temp 36.4 Pulse 62 Resp 16 B/P (MAP) 160/93 (115) Pulse Ox 99 Blood Pressure Mean: 115 Departure Communication (Admissions) EKG #1: T-wave inversions in V1 and V2 and aVL. ST depression in lateral leads. EKG #2: Unchanged CXR: NAD 324 mg of baby aspirin and nitroglycerin 3 given. Blood pressure dyspnea and symptoms partially improved. EKG concerning for acute coronary syndrome. NTG and heparin drips initiated, fentanyl given. Labs reviewed. Dr. Abad accepts patient. Dr. Esquivel consulted. Brilinta given. Patient NPO. Impression Primary Impression: Acute coronary syndrome Disposition: 09 ADMITTED INPATIENT Condition: Stable Admissions Decision to Admit Reason: Admit from ER (General) Transfer Transfer Reason: Exceeds level of care Time Spoke to Accepting Phy: 08:51 Transfer Time: 08:51 Method of Transfer: EMS Departure-Patient Inst. Referrals: NAHUM WRIGHT MD (PCP/Family) Primary Care Physician ZANE SHARMA DO Feb 18, 2020 08:24
[2020-02-18] MEDS ORDERED: HEParin DRIP 25000 UNIT/500ML 500 ML IV ONE (08:34)
[2020-02-18] MEDS ORDERED: HEParin 1000 UNIT/ML (10ML VIAL) FOR BOLUS IV ONE (08:34)
[2020-02-18 08:41] LABS: BUN/CREATININE RATIO 15; CARBON DIOXIDE 30 MMOL/L (21-32); CHLORIDE 101 MMOL/L (98-107); CREATININE SERUM 0.82 MG/DL (0.60-1.30); GFR ESTIMATED > 60; GLUCOSE 93 MG/DL (70-105); POTASSIUM 3.6 MMOL/L (3.6-5.0); SODIUM 143 MMOL/L (135-145)
--- OUTSIDE RECORDS SUMMARY | 2020-02-18 08:41 | XMS REPORT | Continuity of Care Document ---
Author Organization Unknown Address Unknown Phone Unavailable Allergies Active Description Code Type Severity Reaction Onset Reported/Identified Relationship to Patient Clinical Status Yes meperidine [id number] Drug Allerg y Unknown N/A 09/22/2005 Medications There is no data. Problems Date Dx Coded Attending Type Code Diagnosis Diagnosed By 04/24/2015 COURTNEY LOTT DISC PAD PLATE FILLER Ot V76.1 2 10/23/2016 COURTNEY LOTT DISC PAD PLATE FILLER Ot V76.1 2 OTH SCREEN MAMMO-MALIGN NEOPLASM OF YUNIEL 10/23/2016 ELOISA WILLARD APRN Ot K57.32 DVTRCLI OF LG INT W/O PERFORATION OR ABS 10/23/2016 ELOISA WILLARD SENIOR MEDIA BUYER Ot N39 .0 URINARY TRACT INFECTION, SITE NOT SPECIF 10/23/2016 ELOISA WILLARD SENIOR MEDIA BUYER Ot R10.32 LEFT LOWER QUADRANT PAIN 10/23/2016 COURTNEY LOTT DISC PAD PLATE FILLER Ot 611.7 2 LUMP OR MASS IN BREAST 10/23/2016 COURTNEY LOTTP Ot V76.1 2 OTH SCREEN MAMMO-MALIGN NEOPLASM OF YUNIEL 06/05/2018 COURTNEY LOTT DISC PAD PLATE FILLER Ot 611.7 2 LUMP OR MASS IN BREAST 06/05/2018 COURTNEY LOTTP Ot V76.1 2 OTH SCREEN MAMMO-MALIGN NEOPLASM OF YUNIEL 06/06/2018 BRIGIDA NEWTON MD Ot F17.210 NICOTINE DEPENDENCE, CIGARETTES, UNCOMPL 06/06/2018 BRIGIDA NEWTON MD Ot F32. 9 MAJOR DEPRESSIVE DISORDER, SINGLE EPISOD 06/06/2018 BRIGIDA NEWTON MD Ot F90. 9 ATTENTION-DEFICIT HYPERACTIVITY DISORDER 06/06/2018 BRIGIDA NEWTON MD Ot M54. 5 LOW BACK PAIN 06/06/2018 BRIGIDA NEWTON MD Ot R10. 31 RIGHT LOWER QUADRANT PAIN 06/06/2018 BRIGIDA NEWTON MD Ot Z88. 8 ALLERGY STATUS TO OTH DRUG/MEDS/BIOL SUB 06/06/2018 BRIGIDA NEWTON MD Ot Z90.710 ACQUIRED ABSENCE OF BOTH CERVIX AND UTER 06/06/2018 BRIGIDA NEWTON MD Ot Z98.890 OTHER SPECIFIED POSTPROCEDURAL STATES 06/07/2018 BRIGIDA NEWTON MD Ot F17.210 NICOTINE DEPENDENCE, CIGARETTES, UNCOMPL 06/07/2018 BRIGIDA NEWTON MD Ot F32. 9 MAJOR DEPRESSIVE DISORDER, SINGLE EPISOD 06/07/2018 BRIGIDA NEWTON MD Ot F90. 9 ATTENTION-DEFICIT HYPERACTIVITY DISORDER 06/07/2018 BRIGIDA NEWTON MD Ot M54. 5 LOW BACK PAIN 06/07/2018 BRIGIDA NEWTON MD J Ot R10. 31 RIGHT LOWER QUADRANT PAIN 06/07/2018 BRIGIDA NEWTON MD Ot Z88. 8 ALLERGY STATUS TO OTH DRUG/MEDS/BIOL SUB 06/07/2018 BRIGIDA NEWTON MD Ot Z90.710 ACQUIRED ABSENCE OF BOTH CERVIX AND UTER 06/07/2018 BRIGIDA NEWTON MD Ot Z98.890 OTHER SPECIFIED POSTPROCEDURAL STATES 06/11/2018 BRIGIDA NEWTON MD Ot F17.210 NICOTINE DEPENDENCE, CIGARETTES, UNCOMPL 06/11/2018 BRIGIDA NEWTON MD Ot F32. 9 MAJOR DEPRESSIVE DISORDER, SINGLE EPISOD 06/11/2018 BRIGIDA NEWTON MD Ot F90. 9 ATTENTION-DEFICIT HYPERACTIVITY DISORDER 06/11/2018 BRIGIDA NEWTON MD Ot M54. 5 LOW BACK PAIN 06/11/2018 BRIGIDA NEWTON MD Ot R10. 31 RIGHT LOWER QUADRANT PAIN 06/11/2018 BRIGIDA NEWTON MD Ot Z88. 8 ALLERGY STATUS TO OTH DRUG/MEDS/BIOL SUB 06/11/2018 BRIGIDA NEWTON MD Ot Z90.710 ACQUIRED ABSENCE OF BOTH CERVIX AND UTER 06/11/2018 BRIGIDA NEWTON MD Ot Z98.890 OTHER SPECIFIED POSTPROCEDURAL STATES Procedures There is no data. Results Test Result Range Complete blood count (CBC) with automate d white blood cell (WBC) differential - 10/23/16 17:50 Blood leukocytes automated count (number/volume) 12.0 10*3/uL 4.3-11.0 Blood erythrocytes automated count (number/volume) 4.43 10*6/uL 4.35-5.85 Venous blood hemoglobin measurement (mass/volume) 14.2 g/dL 11.5-16.0 Blood hematocrit (volume fraction) 42 % 35-52 Automated erythrocyte mean corpuscular volume 94 [ foz_us] 80-99 Automated erythrocyte mean corpuscular h emoglobin (mass per erythrocyte) 32 pg 25-34 Automated erythrocyte mean corpuscular h emoglobin concentration measurement (mass/volume) 34 g/dL 32-36 Automated erythrocyte distribution width ratio 14. 6 % 10.0- 14.5 Automated blood platelet count (count/volume) 191 10*3/uL 130-400 Automated blood platelet mean volume measurement 11.3 [foz_us] 7.4-10.4 Automated blood neutrophils/100 leukocytes 76 % 42-75 Automated blood lymphocytes/100 leukocytes 14 % 12-44 Blood monocytes/100 leukocytes 8 % 0-12 Automated blood eosinophils/100 leukocytes 1 % 0-10 Automated blood basophils/100 leukocytes 0 % 0-10 Blood neutrophils automated count (number/volume) 9.2 10*3 1.8-7.8 Blood lymphocytes automated count (number/volume) 1.7 10*3 1.0-4.0 Blood monocytes automated count (number/volume) 1. 0 10*3 0.0-1.0 Automated eosinophil count 0.2 10*3/uL 0 .0-0.3 Automated blood basophil count (count/volume) 0.0 10*3/uL 0.0-0.1 Complete urinalysis with reflex to cultu re - 10/23/16 17:50 Urine color determination YELLOW NRG Urine clarity determination SLIGHTLY CLOUDY NRG Urine pH measurement by test strip 6 5-9 Specific gravity of urine by test strip 1.020 1.016-1.022 Urine protein assay by test strip, semi-quantitative 1+ NEGATIVE Urine glucose detection by automated test strip NE GATIVE NEGATIVE Erythrocytes detection in urine sediment by light micr oscopy 3+ NEGATIVE Urine ketones detection by automated test strip NE GATIVE NEGATIVE Urine nitrite detection by test strip NEGATIVE NEGATIVE Urine total bilirubin detection by test strip NEGA TIVE NEGATIVE Urine urobilinogen measurement by automated test strip (mass/volume) 1 mg/dL NORMAL Urine leukocyte esterase detection by dipstick 2+ NEGATIVE Automated urine sediment erythrocyte cou nt by microscopy (number/high power field) [HPF] NRG Automated urine sediment leukocyte count by microscopy (number/high power field) [HPF] NRG Bacteria detection in urine sediment by light microsco py FEW NRG Squamous epithelial cells detection in u rine sediment by light microscopy >50 NRG Crystals detection in urine sediment by light microsco py NONE NRG Casts detection in urine sediment by light microscopy NONE NRG Mucus detection in urine sediment by light microscopy NEGATIVE NRG Complete urinalysis with reflex to culture YES NRG Comprehensive metabolic panel - 10/23/16 17:50 Serum or plasma sodium measurement (moles/volume) 143 mmol/L 135-145 Serum or plasma potassium measurement (moles/volume) 3.3 mmol/L 3.6-5.0 Serum or plasma chloride measurement (moles/volume) 105 mmol/L 98-107 Carbon dioxide 27 mmol/L 21-32 Serum or plasma anion gap determination (moles/volume) 11 mmol/L 5-14 Serum or plasma urea nitrogen measurement (mass/volume ) 14 mg/dL 7-18 Serum or plasma creatinine measurement (mass/volume) 0.95 mg/dL 0.60-1.30 Serum or plasma urea nitrogen/creatinine mass ratio 15 NRG Serum or plasma creatinine measurement w ith calculation of estimated glomerular filtration rate > NRG Serum or plasma glucose measurement (mass/volume) 83 mg/dL 70-105 Serum or plasma calcium measurement (mass/volume) 9.2 mg/dL 8.5-10.1 Serum or plasma total bilirubin measurement (mass/volu me) 0.3 mg/dL 0.1-1.0 Serum or plasma alkaline phosphatase zahraa surement (enzymatic activity/volume) 83 U/L 40-136 Serum or plasma aspartate aminotransfera se measurement (enzymatic activity/volume) 16 U/L 5-34 Serum or plasma alanine aminotransferase measurement (enzymatic activity/volume) 13 U/L 0-55 Serum or plasma protein measurement (mass/volume) 7.0 g/dL 6.4-8.2 Serum or plasma albumin measurement (mass/volume) 4.1 g/dL 3.2-4.5 Bacterial urine culture - 10/23/16 17:50 Bacterial urine culture FOOTNOTE NRG Complete urinalysis with reflex to cultu re - 06/05/18 21:30 Urine color determination YELLOW NRG Urine clarity determination CLEAR NR G Urine pH measurement by test strip 7 5-9 Specific gravity of urine by test strip 1.010 1.016-1.022 Urine protein assay by test strip, semi-quantitative NEGATIVE NEGATIVE Urine glucose detection by automated test strip NE GATIVE NEGATIVE Erythrocytes detection in urine sediment by light micr oscopy 1+ NEGATIVE Urine ketones detection by automated test strip NE GATIVE NEGATIVE Urine nitrite detection by test strip NEGATIVE NEGATIVE Urine total bilirubin detection by test strip NEGA TIVE NEGATIVE Urine urobilinogen measurement by automated test strip (mass/volume) NORMAL NORMAL Urine leukocyte esterase detection by dipstick 1+ NEGATIVE Automated urine sediment erythrocyte cou nt by microscopy (number/high power field) [HPF] NRG Automated urine sediment leukocyte count by microscopy (number/high power field) [HPF] NRG Bacteria detection in urine sediment by light microsco py TRACE NRG Squamous epithelial cells detection in u rine sediment by light microscopy 0-2 NRG Crystals detection in urine sediment by light microsco py NONE NRG Casts detection in urine sediment by light microscopy NONE NRG Mucus detection in urine sediment by light microscopy NEGATIVE NRG Complete urinalysis with reflex to culture NO NRG Urine drug screening test - 06/05/18 21: 30 Urine phencyclidine detection by screening method NEGATIVE NEGATIVE Urine benzodiazepines detection by screening method NEGATIVE NEGATIVE Urine cocaine detection NEGATIVE NEGATI VE Urine amphetamines detection by screening method P OSITIVE NEGATIVE Urine methamphetamine detection by screening method NEGATIVE NEGATIVE Urine cannabinoids detection by screening method N EGATIVE NEGATIVE Urine opiates detection by screening method NEGATI VE NEGATIVE Urine barbiturates detection NEGATIVE N EGATIVE Screening urine tricyclic antidepressants detection NEGATIVE NEGATIVE Urine methadone detection by screening method NEGA TIVE NEGATIVE Urine oxycodone detection NEGATIVE NEGA TIVE Urine propoxyphene detection NEGATIVE N EGATIVE Urine beta human chorionic gonadotropin (hCG) measurement - 06/05/18 21:30 Urine beta human chorionic gonadotropin (hCG) measurem ent NEGATIVE NEGATIVE Complete blood count (CBC) with automate d white blood cell (WBC) differential - 06/05/18 22:05 Blood leukocytes automated count (number/volume) 10.8 10*3/uL 4.3-11.0 Blood erythrocytes automated count (number/volume) 4.26 10*6/uL 4.35-5.85 Venous blood hemoglobin measurement (mass/volume) 13.6 g/dL 11.5-16.0 Blood hematocrit (volume fraction) 41 % 35-52 Automated erythrocyte mean corpuscular volume 96 [ foz_us] 80-99 Automated erythrocyte mean corpuscular h emoglobin (mass per erythrocyte) 32 pg 25-34 Automated erythrocyte mean corpuscular h emoglobin concentration measurement (mass/volume) 33 g/dL 32-36 Automated erythrocyte distribution width ratio 14. 7 % 10.0- 14.5 Automated blood platelet count (count/volume) 199 10*3/uL 130-400 Automated blood platelet mean volume measurement 11.2 [foz_us] 7.4-10.4 Automated blood neutrophils/100 leukocytes 71 % 42-75 Automated blood lymphocytes/100 leukocytes 21 % 12-44 Blood monocytes/100 leukocytes 6 % 0-12 Automated blood eosinophils/100 leukocytes 1 % 0-10 Automated blood basophils/100 leukocytes 1 % 0-10 Blood neutrophils automated count (number/volume) 7.7 10*3 1.8-7.8 Blood lymphocytes automated count (number/volume) 2.3 10*3 1.0-4.0 Blood monocytes automated count (number/volume) 0. 7 10*3 0.0-1.0 Automated eosinophil count 0.1 10*3/uL 0 .0-0.3 Automated blood basophil count (count/volume) 0.1 10*3/uL 0.0-0.1 Comprehensive metabolic panel - 06/05/18 22:05 Serum or plasma sodium measurement (moles/volume) 139 mmol/L 135-145 Serum or plasma potassium measurement (moles/volume) 3.5 mmol/L 3.6-5.0 Serum or plasma chloride measurement (moles/volume) 101 mmol/L 98-107 Carbon dioxide 28 mmol/L 21-32 Serum or plasma anion gap determination (moles/volume) 10 mmol/L 5-14 Serum or plasma urea nitrogen measurement (mass/volume ) 19 mg/dL 7-18 Serum or plasma creatinine measurement (mass/volume) 1.07 mg/dL 0.60-1.30 Serum or plasma urea nitrogen/creatinine mass ratio 18 NRG Serum or plasma creatinine measurement w ith calculation of estimated glomerular filtration rate 55 NRG Serum or plasma glucose measurement (mass/volume) 90 mg/dL 70-105 Serum or plasma calcium measurement (mass/volume) 9.6 mg/dL 8.5-10.1 Serum or plasma total bilirubin measurement (mass/volu me) 0.2 mg/dL 0.1-1.0 Serum or plasma alkaline phosphatase zahraa surement (enzymatic activity/volume) 74 U/L 40-136 Serum or plasma aspartate aminotransfera se measurement (enzymatic activity/volume) 24 U/L 5-34 Serum or plasma alanine aminotransferase measurement (enzymatic activity/volume) 17 U/L 0-55 Serum or plasma protein measurement (mass/volume) 7.3 g/dL 6.4-8.2 Serum or plasma albumin measurement (mass/volume) 4.3 g/dL 3.2-4.5 CALCIUM CORRECTED 9.4 mg/dL 8.5-10.1 Serum or plasma C reactive protein measu rement (mass/volume) - 06/05/18 22:05 Serum or plasma C reactive protein measurement (mass/v olume) 0.38 mg/dL 0.00-0.50 Complete blood count (CBC) with automate d white blood cell (WBC) differential - 02/18/20 07:57 Blood leukocytes automated count (number/volume) 9.1 10*3/uL 4.3-11.0 Blood erythrocytes automated count (number/volume) 4.52 10*6/uL 4.35-5.85 Venous blood hemoglobin measurement (mass/volume) 14.5 g/dL 11.5-16.0 Blood hematocrit (volume fraction) 43 % 35-52 Automated erythrocyte mean corpuscular volume 95 [ foz_us] 80-99 Automated erythrocyte mean corpuscular h emoglobin (mass per erythrocyte) 32 pg 25-34 Automated erythrocyte mean corpuscular h emoglobin concentration measurement (mass/volume) 34 g/dL 32-36 Automated erythrocyte distribution width ratio 14. 9 % 10.0- 14.5 Automated blood platelet count (count/volume) 218 10*3/uL 130-400 Automated blood platelet mean volume measurement 11.7 [foz_us] 7.4-10.4 Automated blood neutrophils/100 leukocytes 67 % 42-75 Automated blood lymphocytes/100 leukocytes 24 % 12-44 Blood monocytes/100 leukocytes 6 % 0-12 Automated blood eosinophils/100 leukocytes 2 % 0-10 Automated blood basophils/100 leukocytes 1 % 0-10 Blood neutrophils automated count (number/volume) 6.1 10*3 1.8-7.8 Blood lymphocytes automated count (number/volume) 2.2 10*3 1.0-4.0 Blood monocytes automated count (number/volume) 0. 5 10*3 0.0-1.0 Automated eosinophil count 0.2 10*3/uL 0 .0-0.3 Automated blood basophil count (count/volume) 0.1 10*3/uL 0.0-0.1 Encounters ACCT No. Visit Date/Time Discharge Status Pt. Type Provider Facility Loc./Unit Complaint [id number] 06/05/2018 20:43:00 018 00:14:00 DIS Emergency BRIGIDA NEWTON MD [facility] ER R SIDE LOWER BACK PAIN [id number] 10/23/2016 17:28:00 017 19:51:00 DIS Emergency ELOISA WILLARD APRN [facility] ER ABD PAIN, BLOATING [id number] 04/08/2015 10:20:00 015 23:59:59 CLS Outpatient COURTNEY LOTT [facility] RAD SCREENING [id number] 02/28/2014 08:43:00 014 23:59:59 CLS Outpatient COURTNEY LOTT [facility] RAD SCREENING [id number] 07/24/2013 11:49:00 013 23:59:59 CLS Outpatient COURTNEY LOTT [facility] RAD BREAST LUMP [id number] 02/18/2020 08:20:00 Document Registration
[2020-02-18 08:42] LABS: ALANINE AMINOTRANSFERASE 15 U/L (0-55); ALBUMIN 4.5 GM/DL (3.2-4.5); ALKALINE PHOSPHATASE 94 U/L (40-136); BILIRUBIN,TOTAL 0.3 MG/DL (0.1-1.0); CALCIUM 9.2 MG/DL (8.5-10.1); TOTAL PROTEIN 7.1 GM/DL (6.4-8.2)
[2020-02-18] MEDS ORDERED: fentaNYL INJECTION 100 MCG/2 ML AMP IVP ONE (08:45)
[2020-02-18] MEDS ORDERED: ONDANSETRON 4 MG/2 ML (SDV) Z0FRAN IVP ONE (08:45)
[2020-02-18] MEDS: NITRO DRIP 25000 MCG/D5W 250 ML IV SCH ×2 (08:57→10:55)
[2020-02-18 09:00] LABS: INR 0.9 (0.8-1.4); PROTHROMBIN TIME PATIENT 12.5 SEC (12.2-14.7)
[2020-02-18] MEDS ORDERED: TICAGRELOR 90 MG TABLET (BRILINTA) PO ONE (09:00)
[2020-02-18] MEDS ORDERED: LORazepam INJ 2 MG/ML (ATIVAN) VIAL IVP ONE (09:15)
[2020-02-18] MEDS ORDERED: NS IV 1000 ML 1,000 ML IV SCH (09:30)
[2020-02-18] MEDS ORDERED: NITROGLYCERIN 0.4 MG SL TABS BTL 25'S SL PRN (10:30)
[2020-02-18] MEDS ORDERED: morphine INJ 4 MG/ML 1 ML (VIAL/SYRINGE) IV PRN (10:30)
[2020-02-18] MEDS ORDERED: ONDANSETRON 4 MG/2 ML (SDV) Z0FRAN IVP PRN (10:30)
--- NOTE | 2020-02-18 10:45 | History & Physical-Hospitalist ---
History of Present Illness HPI/Chief Complaint CC: Chest Pain HPI: This is a 50yoWF who smokes and drinks to excess who [facility] with complaints of chest pain. She did have a negative Troponin but EKG changes with ST changes with inverted T-waves noted. She was found to be in need for cardiac catheterization after being assessed by cardiology. I did talk about smoking cessation and alcohol consumption cessation. She works at [employer]. Source: patient, RN/MD Exam Limitations: no limitations Date Seen 02/18/20 Time Seen by a Provider: 11:00 Attending Physician Mayra Abad DO PCP Self,Clark CABELLO Referring Physician Date of Admission Feb 18, 2020 at 10:12 Home Medications & Allergies Home Medications Reviewed patient Home Medication Reconciliation performed by pharmacy medication reconciliations donor center technician and/or nursing. Patients Allergies have been reviewed. Allergies Allergies Coded Allergies meperidine (Verified Allergy, Unknown, 09/22/05) Past Pqtzilc-Rizivr-Foimdi Hx Past Med/Social Hx: Reviewed Nursing Past Med/Soc Hx, Reviewed and Corrections made Patient Social History Marrital Status: single Employed/Student: employed, unemployed, student, full-time Alcohol Use: Regular Use Number of Drinks Today: AA Alcohol Beverage of Choice: Beer Recreational Drug Use: No Smoking Status: Current Everyday Smoker Type Used: Cigarettes 2nd Hand Smoke Exposure: Yes Recent Foreign Travel: No Contact w/other who traveled: No Recent Hopitalizations: No Recent Infectious Disease Expo: No Immunizations Up To Date Tetanus Booster (TDap): Unknown Seasonal Allergies Seasonal Allergies: No Past Medical History Surgeries: Section, Hysterectomy Respiratory: COPD Cardiac: Hypertension Hysterectomy Psychosocial: Depression Review of Systems Constitutional: see HPI Cardiovascular: chest pain All Other Systems Reviewed Negative Unless Noted: Yes Physical Exam Physical Exam Vital Signs Vital Signs - First Documented 02/18/20 02/18/20 07:55 10:15 Temp 36.4 Pulse 62 Resp 16 B/P (MAP) 160/93 (115) Pulse Ox 99 O2 Delivery Nasal Cannula O2 Flow Rate 2.00 Capillary Refill : Less Than 3 Seconds Height, Weight, BMI Height: 5'0" Weight: 135lbs. oz. 61.427323dn; 24.00 BMI Method:Stated General Appearance: No Apparent Distress, Chronically ill, Thin Eyes: Right Eye Normal Inspection, Right Eye PERRL HEENT: PERRL/EOMI, Normal ENT Inspection, Pharynx Normal, Moist Mucous Membrane s Neck: Full Range of Motion, Normal Inspection, Non Tender Respiratory: Chest Non Tender, Lungs Clear, Normal Breath Sounds, No Accessory Muscle Use, No Respiratory Distress Cardiovascular: Regular Rate, Rhythm, No Edema, No Gallop, No JVD, No Murmur, Normal Peripheral Pulses Gastrointestinal: Normal Bowel Sounds, No Organomegaly, No Pulsatile Mass, Non Tender, Soft Back: Normal Inspection, No CVA Tenderness, No Vertebral Tenderness Extremity: Normal Capillary Refill, Normal Inspection, Normal Range of Motion, Non Tender, No Calf Tenderness, No Pedal Edema Neurologic/Psychiatric: Alert, Oriented x3, No Motor/Sensory Deficits, Normal Mood/Affect Skin: Normal Color, Warm/Dry Lymphatic: No Adenopathy Results Results/Procedures Labs Laboratory Tests 02/18/20 07:57 Patient resulted labs reviewed. Assessment/Plan Admission Diagnosis Assessment: NSTEMI EKG changes Smoker ETOH heavy use Plan: Cardiology appreciated Admission Status: Inpatient Order (span 2 midnights) Reason for Inpatient Admission: NSTEMI Assessment and Plan Assessment: Chest pain Smoker Alcohol use COVID-19 swab pending Plan: Await COVID-19 swab Cardiology consultation Smoking cessation discussed Alcohol cessation discussed Diagnosis/Problems Diagnosis/Problems (1) NSTEMI (non-ST elevated myocardial infarction) (2) Smoker (3) Alcohol abuse Clinical Quality Measures AMI/AHF: ASA po Prior to arrival: No DVT/VTE Risk/Contraindication: Risk Factor Score Per Nursin RFS Level Per Nursing on Admit: 2=Moderate MAYRA ABAD DO Feb 18, 2020 10:45
[2020-02-18] MEDS ORDERED: NS IV 1000 ML 1,000 ML ONE (12:03)
--- NOTE | 2020-02-18 12:30 | NUR ---
This RN notified Dr. Esquivel of critical troponin of 1.403. Dr. Esquivel gave no new orders at this time. This RN also clarified heparin order with Dr. Esquivel. Dr. Esquivel gave verbal order to stop heparin drip and start of weight based lovenox. This RN stopped heparin drip and placed order for lovenox.
[2020-02-18] MEDS ORDERED: ENOXAPARIN 100 MG/1 ML (LOVENOX) SYR SC SCH (12:45)
--- NOTE | 2020-02-18 12:54 | NUR ---
This RN contacted emergency contact and gave update on pt condition and plan of care. Emergency contact agreed to be point of contact for all updates and she will update the family accordingly.
[2020-02-18] MEDS: ENOXAPARIN 60 MG/0.6 ML (LOVENOX) SYR SC SCH ×2 (15:09→23:38)
--- NOTE | 2020-02-18 15:35 | Consultation-Cardiology ---
HPI-Cardiology Cardiology Consultation: Date of Consultation 02/18/20 Date of Admission Attending Physician Mayra Abad DO Admitting Physician Clark Sheppard MD Consulting Physician Tavon ESQUIVEL MD HPI: Time Seen by a Provider: 11:45 Chief Complaint: Chest pain This is a 50-year-old lady with history of hypertension, active smoking, alcohol abuse who presents to the [place] ER with central chest pain which is off burning sensation with shortness of breath and bilateral shoulder pain and numbness. Symptoms started 2 days and have gradually worsened. Patient also feels dizzy. Patient denies any previous cardiac history. Positive family history for premature CAD. No exacerbating or relieving factors. Review of Systems-Cardiology Review of Systems Constitutional: As described under HPI; No As described under HPI, No no symptoms reported, No chills, No fever, No lightheadedness Eyes: No As described under HPI, No no symptoms reported, No blindness, No blurred vision, No contact lenses, No drainage, No decreased acuity, No foreign body sensation, No pain, No vision change Ears/Nose/Throat: No As described under HPI, No no symptoms reported, No chronic hearing loss, No ear discharge, No ear pain, No nasal drainage, No ulcerations Respiratory: No no symptoms reported; As described under HPI; No As described under HPI, No cough, No orthopnea, No shortness of breath, No SOB with excertion Cardiovascular: No no symptoms reported; As described under HPI; No As described under HPI; chest pain; No edema, No irregular heart rate, No lightheadedness, No palpitations Gastrointestinal: No no symptoms reported, No As described under HPI, No abdomen distended, No abdominal pain, No blood streaked bowels, No constipation, No diarrhea, No nausea, No vomiting, No stool coloration changes Genitourinary: No As described under HPI, No burning, No dysuria, No discharge, No frequency, No flank pain, No hematuria, No urgency : Yes : No Skin: No rash, No skin related problems, No ulcerations Psychiatric/Neurological: No anxiety, No depression, No seizure, No focal weakness, No syncope Hematologic: No bleeding abnormalities IRV-Pzhlew-Ykypsx Hx Patient Social History Marrital Status: single Employed/Student: employed, unemployed, student, full-time Alcohol Use: Regular Use Recreational Drug Use: No Smoking Status: Current Everyday Smoker Type Used: Cigarettes 2nd Hand Smoke Exposure: Yes Recent Foreign Travel: No Recent Infectious Disease Expo: No Immunizations Up To Date Tetanus Booster (TDap): Unknown Past Medical History PMH As described under Assessment. Allergies and Home Medications Allergies Coded Allergies: meperidine (Verified Allergy, Unknown, 09/22/05) Home Medications Ciprofloxacin HCl 500 Mg Tablet, 500 MG PO BID Prescribed by: ELOISA WILLARD on 10/23/161849 Dextroamphetamine/Amphetamine 10 Mg Tablet, Unknown Dose PO DAILY, (Reported) Hydrocodone Bit/Acetaminophen 1 Tab Tab, 1 EACH PO Q6H PRN for PAIN-MODERATE Prescribed by: BRIGIDA NEWTON on 06/06/189 Hydrocodone/Acetaminophen 1 Each Tablet, 1 EACH PO Q4H PRN for PAIN Prescribed by: ELOISA WILLARD on 10/23/161849 Metronidazole 500 Mg Tablet, 500 MG PO TID Prescribed by: ELOISA WILLARD on 10/23/161849 Sertraline HCl 50 Mg Tablet, 50 MG PO DAILY, (Reported) Patient Home Medication List Home Medication List Reviewed: Yes Physical Exam-Cardiology Physical Exam Vital Signs/I&O 02/18/20 02/18/20 02/18/20 02/18/20 07:55 08:57 09:38 10:15 Temp 36.4 36.4 36.4 Pulse 62 68 48 53 Resp 16 18 16 B/P (MAP) 160/93 (115) 124/81 125/82 97/62 (74) Pulse Ox 99 100 98 O2 Delivery Nasal Cannula O2 Flow Rate 2.00 02/18/20 02/18/20 02/18/20 02/18/20 10:37 10:55 11:00 12:00 Pulse 45 51 51 Resp 27 B/P (MAP) 97/62 105/80 (88) 113/88 (96) Pulse Ox 100 100 O2 Delivery Nasal Cannula Nasal Cannula O2 Flow Rate 2.00 2.00 02/18/20 12:00 Pulse Ox 100 O2 Delivery Room Air Capillary Refill : Less Than 3 Seconds Constitutional: appears stated age, AAO x 3; No apparent distress; well- developed, well-nourished HEENT: PERRL; No discharge; hearing is well preserved, oral hygience is good; No ulceration, No xanthelasmas are seen Neck: No carotid bruit; carotid pulses are 2 + bilaterally Respiratory: chest is bilaterally symmetric, lungs clear to auscultation Cardiovascular: regular rate-rhythm, S1 and S2 Gastrointestinal: soft, audible bowel sounds; No spleenomegaly Rectal: deferred Extremities: normal range of motion, non-tender, normal inspection; No clubbing, No cyanosis; no lower extremity edema bilateral; No significant edema Neurologic/Psychiatric: no motor/sensory deficits, alert, normal mood/affect, oriented x 3, power is 5/5 both on sides Skin: normal color; No rash, No ulcerations Data Review Labs Laboratory Tests 02/18/20 07:57: White Blood Count 9.1, Red Blood Count 4.52, Hemoglobin 14.5, Hematocrit 43, Mean Corpuscular Volume 95, Mean Corpuscular Hemoglobin 32, Mean Corpuscular Hemoglobin Concent 34, Red Cell Distribution Width 14.9H, Platelet Count 218, Mean Platelet Volume 11.7H, Neutrophils (%) (Auto) 67, Lymphocytes (%) (Auto) 24, Monocytes (%) (Auto) 6, Eosinophils (%) (Auto) 2, Basophils (%) (Auto) 1, Neutrophils # (Auto) 6.1, Lymphocytes # (Auto) 2.2, Monocytes # (Auto) 0.5, Eosinophils # (Auto) 0.2, Basophils # (Auto) 0.1, Prothrombin Time 12.5, INR Comment 0.9, Activated Partial Thromboplast Time 27, D-Dimer 0.50H, Sodium Level 143, Potassium Level 3.6, Chloride Level 101, Carbon Dioxide Level 30, Anion Gap 12, Blood Urea Nitrogen 12, Creatinine 0.82, Estimat Glomerular Filtration Rate > 60, BUN/Creatinine Ratio 15, Glucose Level 93, Calcium Level 9.2, Corrected Calcium 8.8, Total Bilirubin 0.3, Aspartate Amino Transf (AST/SGOT) 19, Alanine Aminotransferase (ALT/SGPT) 15, Alkaline Phosphatase 94, Troponin I < 0.30, Pro-B-Type Natriuretic Peptide 94.7H, Total Protein 7.1, Albumin 4.5, Lipase 21 02/18/20 08:40: 02/18/20 11:50: Troponin I 1.403*H 02/18/20 13:40: Troponin I 4.764*H ECG Impression ECG Initial ECG Rhythm: Normal Sinus Comment T-wave inversions noted. A/P-Cardiology Assessment/Admission Diagnosis Non-STEMI, Alcohol abuse, Active smoking, Hypertension Plan Non-STEMI, COVID-19 pending. Treat with aspirin, Brilinta bolus, IV heparin/Lovenox. No further chest pain. Plan for coronary angiography as soon as we have COVID-19 results. Alcohol abuse, defer to the primary team. Active smoking, smoking cessation strongly recommended. Hypertension, systolic blood pressure of 105 mmHg. Therefore will not add any antihypertensive. High-dose statin therapy is recommended. Thank you for your consultation. Please call me if you have any questions. Werner Esquivel MD, FACP, FACC, FSCAI, FHRS, CCDS Interventional Cardiology Cardiac Electrophysiology Vascular Medicine and Endovascular Interventions Clinical Quality Measures AMI/AHF: ASA po Prior to arrival: No DVT/VTE Risk/Contraindication: Risk Factor Score Per Nursin RFS Level Per Nursing on Admit: 2=Moderate Tavon ESQUIVEL MD Feb 18, 2020 15:35
[2020-02-18] MEDS ORDERED: ACET-2267 PO (15:49)
[2020-02-18] MEDS ORDERED: IBUP-2473 PO (15:49)
[2020-02-18] MEDS ORDERED: DEXT25CA PO (15:49)
[2020-02-18] MEDS ORDERED: LISI10TA2 PO (15:49)
[2020-02-18] MEDS ORDERED: SERT100T8 PO (15:49)
[2020-02-18] MEDS: TICAGRELOR 90 MG TABLET (BRILINTA) PO SCH (20:00)
[2020-02-18] MEDS ORDERED: 1/2 NS IV SOLUTION 1,000 ML IV PRN (21:07)
[2020-02-18] MEDS ORDERED: LOPERAMIDE 2 MG (IMODIUM) TABLET PO PRN (21:15)
[2020-02-18] MEDS ORDERED: HYDROcodone/APAP 5 MG/325 MG (LORTAB) TAB PO PRN (21:15)
[2020-02-18] MEDS ORDERED: LORazepam INJ 2 MG/ML (ATIVAN) VIAL IM/IV PRN (21:15)
[2020-02-18] MEDS ORDERED: MELATONIN 3 MG TABLET PO PRN (21:15)
[2020-02-18] MEDS ORDERED: LORazepam INJ 2 MG/ML (ATIVAN) VIAL IV PRN (21:15)
[2020-02-18] MEDS ORDERED: D5 1/2 NS 1000 ML IV SOLUTION 1,000 ML IV PRN (21:15)
[2020-02-18] MEDS ORDERED: diphenhydrAMINE 25 MG TAB (BENADRYL) PO PRN (21:15)
[2020-02-18] MEDS ORDERED: LORazepam 1 MG (ATIVAN) TAB PO PRN (21:15)
[2020-02-18] MEDS ORDERED: SENNA W/DOCUSATE (SENOKOT S) TABLET PO PRN (21:15)
[2020-02-18] MEDS ORDERED: ONDANSETRON 4 MG (ZOFRAN) ORAL DISSOLVE TAB SL PRN (21:15)
[2020-02-18] MEDS ORDERED: fentaNYL INJECTION 100 MCG/2 ML AMP IVP PRN (21:15)
[2020-02-18] MEDS ORDERED: ACETAMINOPHEN 500 MG TAB (TYLENOL) PO PRN (21:15)
[2020-02-18] MEDS ORDERED: ONDANSETRON 4 MG/2 ML (SDV) Z0FRAN IV PRN (21:15)
[2020-02-18] MEDS ORDERED: ANTACID SUSP 30 ML UDC (MYLANTA) PO PRN (21:15)
[2020-02-19] VITALS (19 sets, daily range): BP systolic 116–162; BP diastolic 72–105
[2020-02-19 04:03] LABS: TRIGLYCERIDES 154 MG/DL (<150); VLDL CHOLESTEROL 31 MG/DL (5-40)
[2020-02-19 04:08] LABS: CHOLESTEROL 168 MG/DL (< 200)
[2020-02-19 04:09] LABS: HDL CHOLESTEROL 53 MG/DL (40-60)
--- NOTE | 2020-02-19 06:05 | Progress Note - Hospitalist ---
Subjective HPI/CC On Admission Date Seen by Provider: Feb 19, 2020 Time Seen by Provider: 09:00 CC: Chest Pain HPI: This is a 50yoWF who smokes and drinks to excess who presented to the [facility] ER with complaints of chest pain. She did have a negative Troponin but EKG changes with ST changes with inverted T-waves noted. She was found to be in need for cardiac catheterization after being assessed by cardiology. I did talk about smoking cessation and alcohol consumption cessation. She works at [employer]. Subjective/Events-last exam Pt had cardiac catheterization today and stent was placed in the RCA by Dr. Esquivel Smoking cessation discussed Overall feels okay, she had had chest pain before the cardiac catheterization Review of Systems General: Fatigue, Malaise Cardiovascular: Chest Pain Objective Exam Vital Signs Vital Signs Date Time Temp Pulse Resp B/P (MAP) Pulse Ox O2 Delivery O2 Flow Rate FiO2 02/19/20 15:47 36.7 55 18 146/90 (108) 99 Room Air 02/18/20 14:00 2.00 Capillary Refill : Less Than 3 Seconds General Appearance: No Apparent Distress, WD/WN, Chronically ill Respiratory: Chest Non Tender, Lungs Clear, Normal Breath Sounds, No Accessory Muscle Use, No Respiratory Distress Cardiovascular: Regular Rate, Rhythm, No Edema, No Gallop, No JVD, No Murmur, Normal Peripheral Pulses Neurologic/Psychiatric: Alert, Oriented x3, No Motor/Sensory Deficits, Normal Mood/Affect Results/Procedures Lab Patient resulted labs reviewed. Assessment/Plan Assessment and Plan Assess & Plan/Chief Complaint Assessment: Chest pain due to NSTEMI s/p stent placement Smoker Alcohol use COVID-19 swab negative Plan: COVID-19 swab negative Cardiology consultation Smoking cessation discussed Alcohol cessation discussed Diagnosis/Problems Diagnosis/Problems (1) NSTEMI (non-ST elevated myocardial infarction) (2) Smoker (3) Alcohol abuse Clinical Quality Measures AMI/AHF: ASA po Prior to arrival: No DVT/VTE Risk/Contraindication: Risk Factor Score Per Nursin RFS Level Per Nursing on Admit: 2=Moderate ADENIKE GRANADOS DO Feb 19, 2020 06:04
[2020-02-19] MEDS: SENNA W/DOCUSATE (SENOKOT S) TABLET PO SCH ×2 (08:04→23:23)
[2020-02-19] MEDS: TICAGRELOR 90 MG TABLET (BRILINTA) PO SCH ×2 (08:04→19:51)
[2020-02-19] MEDS: ASPIRIN E.C. 81 MG (ECOTRIN) TAB PO SCH (08:04)
[2020-02-19] MEDS ORDERED: LIDOCAINE 1% INJ 20 ML 20 ML VIAL ONE (08:05)
[2020-02-19] MEDS ORDERED: HEParin (CATH LAB) 2,000 ML IV ONE (08:06)
[2020-02-19] MEDS ORDERED: MIDAZOLAM 5 MG/5 ML (VERSED) VIAL ONE (10:06)
[2020-02-19] MEDS ORDERED: fentaNYL INJECTION 100 MCG/2 ML AMP ONE (10:06)
--- NOTE | 2020-02-19 10:32 | NUR ---
CM/SS visited with patient for social service consult. CM/SS received social service consult in regards to alcohol consumption. The patient denies any substance use. CM/SS asked if the patient drank alcohol. She stated yes, but not very often. CM/SS informed patient that referral was due to alcohol use. CM/SS asked if the patient believed she had an alcohol addiction or felt it was a problem. She adamantly denied that she was overusing. She states that she does drink beer but only after work. The patient reports that it is approximately x4 days a week. During the times she is drinking she states she will drink no more than 6 beers. The patient reports that she is currently living at home alone and is working at [employer]. The patient reports that she does not currently have any needs.
[2020-02-19] MEDS: ENOXAPARIN 60 MG/0.6 ML (LOVENOX) SYR SC SCH (10:53)
[2020-02-19] MEDS ORDERED: NS IV 1000 ML 1,000 ML ONE (11:29)
--- NOTE | 2020-02-19 11:34 | NUR ---
1050 DUE TO CHANGES IN STAFFING CARE OF PT REPORT TO Morelia FLOYD RN,
[2020-02-19] MEDS ORDERED: NITRO DRIP 25000 MCG/D5W 250 ML IV ONE (11:55)
[2020-02-19] MEDS ORDERED: HEParin 1000 UNIT/ML (10ML VIAL) FOR BOLUS ONE (11:55)
[2020-02-19] MEDS ORDERED: NS IV 1000 ML 1,000 ML IV SCH (12:00)
--- NOTE | 2020-02-19 12:23 | Cardiology Progress Note ---
Cardiology SOAP Progress Note Subjective: Episode of chest pain overnight. EKG did not reveal any ST segment elevation. Patient was given nitroglycerin. Objective: I&O/Vital Signs 02/19/20 02/19/20 02/19/20 02/19/20 01:00 01:00 02:00 03:00 Pulse 68 68 58 58 Resp 19 17 18 B/P (MAP) 116/72 (87) 145/105 (118) 116/73 (87) Pulse Ox 97 97 97 O2 Delivery Room Air Room Air Room Air 02/19/20 02/19/20 02/19/20 02/19/20 04:00 04:00 05:00 06:00 Pulse 61 55 57 Resp 12 16 B/P (MAP) 134/87 (103) 131/88 (102) 138/105 (116) Pulse Ox 98 100 97 97 O2 Delivery Room Air Room Air Room Air Room Air 02/19/20 02/19/20 02/19/20 02/19/20 06:44 08:00 08:00 08:15 Temp 36.8 Pulse 54 62 Resp 19 B/P (MAP) 155/94 (114) Pulse Ox 99 100 O2 Delivery Room Air Room Air 02/19/20 00:00 Intake Total 1800 ml Output Total 0 ml Balance 1800 ml Weight (Pounds): 135 Weight (Calculated Kilograms): 61.902571 Constitutional: appears stated age, AAO x 3; No apparent distress; well-d eveloped, well-nourished Respiratory: chest is bilaterally symmetric, lungs clear to auscultation Cardiovascular: regular rate-rhythm, S1 and S2 Gastrointestional: soft, audible bowel sounds; No spleenomegaly Extremities: normal range of motion, non-tender, normal inspection; No clubbing, No cyanosis; no lower extremity edema bilateral; No significant edema Neurologic/Psychiatric: no motor/sensory deficits, alert, normal mood/affect, oriented x 3, power is 5/5 both on sides Skin: normal color; No rash, No ulcerations Results/Procedures: Labs Laboratory Tests 02/18/20 13:40: Troponin I 4.764*H 02/19/20 03:38: Triglycerides Level 154H, Cholesterol Level 168, LDL Cholesterol Direct 101, VLDL Cholesterol 31, HDL Cholesterol 53 Microbiology 02/18/20 MRSA Screen - Final, Complete MRSA not isolated A/P: Assessment/Dx: Non-STEMI, Alcohol abuse, Active smoking, Hypertension Plan: Non-STEMI, COVID-19 pending. Treat with aspirin, Brilinta bolus, IV heparin/Lovenox. Episode of chest pain overnight without ST segment deviation. Coronary angiography planned today. Informed consent taken. Alcohol abuse, defer to the primary team. Active smoking, smoking cessation strongly recommended. Hypertension, systolic blood pressure of 105 mmHg. Therefore will not add any antihypertensive. High-dose statin therapy is recommended. COVID-19 negative. Thank you for your consultation. Please call me if you have any questions. Werner Esquivel MD, FACP, FACC, FSCAI, FHRS, CCDS Interventional Cardiology Cardiac Electrophysiology Vascular Medicine and Endovascular Interventions Clinical Quality Measures AMI/AHF: ASA po Prior to arrival: Tavon Palm MD Feb 19, 2020 12:22
--- NOTE | 2020-02-19 12:23 | Cardiac Procedure Note-CS/ASA ---
Pre-Procedure Note Pre-Op Procedure Note H&P Reviewed The H&P was reviewed, patient examined and no changes noted. Date H&P Reviewed: Feb 19, 2020 Time H&P Reviewed: 11:00 Conscious Sedation Pre-Proced Time 11:00 ASA Score 3 For ASA 3 and 4: Consider anesthesia and medical clearance. Also, for patients with a history of failed moderate sedation consider anesthesia. Airway Lungs Heart ASA score ASA 1: a normal healthy patient ASA 2: a patient with a mild systemic disease (mid diabetes, controlled hypertension, obesity ASA 3: a patient with a severe systemic disease that limits activity (angina, COPD, prior Myocardial infarction) ASA 4: a patient with an incapacitating disease that is a constant threat to life (CHF, renal failure) ASA 5: a moribund patient not expected to survive 24 hrs. (ruptured aneurysm) ASA 6: a declared brain- patient whose organs are being harvested. For emergent operations, add the letter E after the classification Mallampati Classification Grade 1 Sedation Plan Analgesia, Amnesia, Plan communicated to team members, Discussed options with patient/fam, Discussed risks with patient/fam The patient is an appropriate candidate to undergo the planned procedure, sedation, and anesthesia. The patient immediately re-assessed prior to indication. Tavon MELTON MD Feb 19, 2020 12:23
[2020-02-19] MEDS: NS IV 1000 ML 1,000 ML IV SCH ×2 (12:27→23:23)
--- NOTE | 2020-02-19 12:27 | Coronary Angiography & PCI ---
Coronary Angiography & PCI DATE OF PROCEDURE: 02/19/20 INDICATION: Non-STEMI. PREOPERATIVE DIAGNOSIS: Non-STEMI. POSTOPERATIVE DIAGNOSIS: Severe proximal RCA stenosis treated with one drug- eluting stent. HISTORY: 50-year-old lady with history of active smoking who presents with prolonged episode of chest pain. Working diagnosis of non-STEMI. Therefore, the patient was scheduled for coronary angiography. PROCEDURES PERFORMED: 1.Coronary angiography. 2.Left heart catheterization. 3.PCI to the proximal RCA with a drug-eluting stent. COMPLICATIONS: None. SPECIMENS: None. ESTIMATED BLOOD LOSS: 10 mL ANESTHESIA: Conscious sedation ANTICOAGULATION: IV heparin CONTRAST: 62 mL. FLUOROSCOPY: 3.6 minutes. FLOUROSCOPY DOSE: 253 mgy. PROCEDURE DETAILS: The patient is a 50 female and was brought to the [facility] after informed consent was taken. All the risks and complications were explained in detail; this included the risk of bleeding, vascular damage, stroke, NM and even . The patient was draped and prepped in the usual sterile fashion. Access was gained in the right femoral artery with a 6 Portuguese sheath. Coronary angiography and left heart catheterization was performed with a JR4 and JL4 catheter. FINDINGS: 1.Left main: Patent. 2.LAD: Mild proximal disease. Mild to moderate disease of first diagonal artery. 3.Left circumflex artery: Luminal irregularities. 4.RCA: Severe stenosis in the proximal RCA. Stenosis severity 99 percent. 5.Left heart catheterization: LV 149/3 mmHg. LVEDP 18 mmHg. Aortic pressure 139/77 mmHg. Normal LV function with no wall motion abnormalities. No significant gradient across the aortic valve. RECOMMENDATIONS: PCI to the proximal RCA is recommended. INTERVENTION DETAILS: JR4 guide catheter with sideholes, BMW guidewire, 5000 units of heparin given. ACT 259 seconds. As soon as the guide catheter was placed in the ostium of the RCA spasm was noted which responded to 400 mcg of IC nitroglycerin. The lesion was crossed with the BMW wire. The tip of the wire was placed in the distal RCA. Direct stenting with 2.5 x 18 mm resolute integrity stent at 18 carol for 22 seconds. 0 residual stenosis with DUKE-3 flow distally. Patient tolerated procedure well and did not have any complication. Right femoral artery was closed with a minx device. CONCLUSIONS: 1. Severe proximal RCA stenosis treated successfully with one drug-eluting stent. 2. Dual antiplatelet therapy for at least 1 year. Continue secondary prevention measures. 3. Smoking cessation was strongly recommended. Werner Esquivel MD, FACP, FACC, [facility] Interventional Cardiology Tavon ESQUIVEL MD Feb 19, 2020 12:27
[2020-02-19] MEDS ORDERED: PATIENT MAY USE OWN MEDS, ALL PO SCH (12:30)
[2020-02-19] MEDS ORDERED: TICAGRELOR 90 MG TABLET (BRILINTA) PO SCH (21:00)
[2020-02-20] MEDS: ENOXAPARIN 60 MG/0.6 ML (LOVENOX) SYR SC SCH (00:49)
[2020-02-20 02:50] LABS: MEAN PLATELET VOLUME 11.8 FL (7.4-10.4); RED CELL DISTRIBUTION WIDTH 15.6 % (10.0-14.5); WHITE BLOOD COUNT 7.4 10^3/uL (4.3-11.0)
[2020-02-20 03:03] LABS: CHLORIDE 105 MMOL/L (98-107); POTASSIUM 4.3 MMOL/L (3.6-5.0); SODIUM 140 MMOL/L (135-145)
[2020-02-20 03:04] LABS: CALCIUM 8.4 MG/DL (8.5-10.1)
[2020-02-20 03:05] LABS: GLUCOSE 98 MG/DL (70-105)
[2020-02-20 03:06] LABS: CARBON DIOXIDE 25 MMOL/L (21-32)
[2020-02-20 03:09] LABS: CREATININE SERUM 0.78 MG/DL (0.60-1.30); GFR ESTIMATED > 60
[2020-02-20 03:10] LABS: BUN/CREATININE RATIO 23
[2020-02-20 03:31] VITALS: BP 149/88
[2020-02-20 08:00] VITALS: BP 131/82
[2020-02-20] MEDS: NS IV 1000 ML 1,000 ML IV SCH (08:43)
[2020-02-20] MEDS: SENNA W/DOCUSATE (SENOKOT S) TABLET PO SCH (08:55)
[2020-02-20] MEDS: ASPIRIN E.C. 81 MG (ECOTRIN) TAB PO SCH (08:55)
[2020-02-20] MEDS: TICAGRELOR 90 MG TABLET (BRILINTA) PO SCH (08:56)
[2020-02-20] MEDS ORDERED: lisINopril 40 MG (PRINIVIL) TABLET PO SCH (09:00)
[2020-02-20] MEDS ORDERED: ASPIRIN E.C. 81 MG (ECOTRIN) TAB PO SCH (09:00)
[2020-02-20] MEDS ORDERED: lisINopril 5 MG (PRINIVIL) TABLET PO SCH (09:00)
[2020-02-20] MEDS ORDERED: ASPI-983 PO (09:50)
[2020-02-20] MEDS ORDERED: MTP25TSR PO (09:50)
[2020-02-20] MEDS ORDERED: NCT7P TD (09:51)
[2020-02-20] MEDS ORDERED: ATOR80TA76 PO (09:51)
[2020-02-20] MEDS ORDERED: TICA90TA PO (09:51)
--- NOTE | 2020-02-20 09:51 | Discharge Summary ---
Discharge Summary Hospital Course Was the Problem List Reviewed?: Yes Problems/Dx: (1) NSTEMI (non-ST elevated myocardial infarction) (2) Smoker (3) Alcohol abuse Hospital Course Date of Admission: Feb 18, 2020 at 10:12 Admission Diagnosis : Family Physician/Provider: Clark Sheppard MD Date of Discharge: 02/20/20 Discharge Diagnosis: NON STEMI s/p stent placement, smoker, alcohol user Hospital Course: Hospital Course: Pt had an uneventful hospital course. She was admitted, swabbed for Covid and awaited that result but she was started on acute coronary syndrome protocol meds along with cardiology consultation. Covid swab was negative. Pt did have elevated troponin with chest pain and ST changes on EKG on admit. Pt underwent cardiac catheterization revealing coronary stenosis of the right RCA, stent was deployed, had an uncomplicated hospital course and was discharged home with smoking cessation instructions and cardiac meds per protocol. Labs and Pending Lab Test: Laboratory Tests 02/20/20 02:36: White Blood Count 7.4, Red Blood Count 4.05L, Hemoglobin 13.0, Hematocrit 39, Mean Corpuscular Volume 97, Mean Corpuscular Hemoglobin 32, Mean Corpuscular Hemoglobin Concent 33, Red Cell Distribution Width 15.6H, Platelet Count 168, Mean Platelet Volume 11.8H, Sodium Level 140, Potassium Level 4.3, Chloride Level 105, Carbon Dioxide Level 25, Anion Gap 10, Blood Urea Nitrogen 18, Creatinine 0.78, Estimat Glomerular Filtration Rate > 60, BUN/Creatinine Ratio 23, Glucose Level 98, Calcium Level 8.4L, Troponin I 2.848*H Microbiology 02/18/20 MRSA Screen - Final, Complete MRSA not isolated Home Meds Active Nicoderm Cq (Nicotine) 1 Each Patch.td24 1 Each TD DAILY PRN 60 Days Atorvastatin Calcium 80 Mg Tablet 80 Mg PO HS 90 Days Brilinta (Ticagrelor) 90 Mg Tablet 90 Mg PO BID Aspirin EC (Aspirin) 81 Mg Tablet.dr 81 Mg PO DAILY 90 Days Metoprolol Succinate 25 Mg Tab.er.24h 25 Mg PO DAILY 90 Days Reported Ibuprofen 200 Mg Tablet 400 Mg PO Q8H PRN Tylenol Extra Strength (Acetaminophen) 500 Mg Tablet 1,000 Mg PO Q8H PRN Sertraline HCl 100 Mg Tablet 100 Mg PO DAILY LAST FILLED 07-28-2020 #90 Dextroamp-Amphet ER 25 mg Cap (Dextroamphetamine/Amphetamine) 25 Mg Cap.er.24h 25 Mg PO DAILY Lisinopril 10 Mg Tablet 10 Mg PO DAILY LAST FILLED 10-27-2019 #90 Assessment/Pt Instructions [facility] 1 week Discharge Planning: <30 minutes discharge planning Discharge Instructions Discharge Diet: Cardiac Diet Activity as Tolerated: Yes Discharge Physical Examination Vital Signs Vital Signs Date Time Temp Pulse Resp B/P (MAP) Pulse Ox O2 Delivery O2 Flow Rate FiO2 02/20/20 08:00 36.9 58 18 131/82 (98) 99 Room Air 02/18/20 14:00 2.00 General Appearance: No Apparent Distress, WD/WN, Chronically ill Neurologic/Psychiatric: Alert, Oriented x3 Allergies: Coded Allergies: meperidine (Verified Allergy, Unknown, 09/22/05) Discharge Summary Date of Admission Feb 18, 2020 at 10:12 Date of Discharge Admission Diagnosis Assessment: NSTEMI EKG changes Smoker ETOH heavy use Plan: Cardiology appreciated Discharge Diagnosis Assessment: Chest pain due to NSTEMI s/p stent placement Smoker Alcohol use COVID-19 swab negative Plan: COVID-19 swab negative Cardiology consultation Smoking cessation discussed Alcohol cessation discussed (1) NSTEMI (non-ST elevated myocardial infarction) (2) Smoker (3) Alcohol abuse Clinical Quality Measures AMI/AHF: ASA po Prior to arrival: No DVT/VTE Risk/Contraindication: Risk Factor Score Per Nursin RFS Level Per Nursing on Admit: 2=Moderate ADENIKE GRANADOS DO Feb 20, 2020 09:51
--- NOTE | 2020-02-20 18:53 | Cardiology Progress Note ---
Cardiology SOAP Progress Note Subjective: No further chest pain. Objective: I&O/Vital Signs 02/20/20 02/20/20 02/20/20 02/20/20 08:00 08:00 09:00 09:45 Temp 36.9 Pulse 58 Resp 18 B/P (MAP) 131/82 (98) Pulse Ox 99 O2 Delivery Room Air Room Air Room Air 02/19/20 23:59 Intake Total 1200 ml Output Total 0 ml Balance 1200 ml Weight (Pounds): 135 Weight (Calculated Kilograms): 61.090644 Constitutional: appears stated age, AAO x 3; No apparent distress; well-developed, well-nourished Respiratory: chest is bilaterally symmetric, lungs clear to auscultation Cardiovascular: regular rate-rhythm, S1 and S2 Gastrointestional: soft, audible bowel sounds; No spleenomegaly Extremities: normal range of motion, non-tender, normal inspection; No clubbing, No cyanosis; no lower extremity edema bilateral; No significant edema Neurologic/Psychiatric: no motor/sensory deficits, alert, normal mood/affect, oriented x 3, power is 5/5 both on sides Skin: normal color; No rash, No ulcerations Results/Procedures: Labs Laboratory Tests 02/20/20 02:36: White Blood Count 7.4, Red Blood Count 4.05L, Hemoglobin 13.0, Hematocrit 39, Mean Corpuscular Volume 97, Mean Corpuscular Hemoglobin 32, Mean Corpuscular Hemoglobin Concent 33, Red Cell Distribution Width 15.6H, Platelet Count 168, Mean Platelet Volume 11.8H, Sodium Level 140, Potassium Level 4.3, Chloride Level 105, Carbon Dioxide Level 25, Anion Gap 10, Blood Urea Nitrogen 18, Creatinine 0.78, Estimat Glomerular Filtration Rate > 60, BUN/Creatinine Ratio 23, Glucose Level 98, Calcium Level 8.4L, Troponin I 2.848*H Microbiology 02/18/20 MRSA Screen - Final, Complete MRSA not isolated A/P: Assessment/Dx: Non-STEMI, Alcohol abuse, Active smoking, Hypertension Plan: Non-STEMI, COVID-19 negative. Treat with aspirin, Brilinta. PCI done to proximal RCA with drug-eluting stent. Dual antiplatelet therapy for at least 1 year. Low dose beta asad and AYDEE inhibitor. High-dose statin therapy. We'll follow-up in the office in 2 weeks. Alcohol abuse, defer to the primary team. Active smoking, smoking cessation strongly recommended. Hypertension, systolic blood pressure of 105 mmHg. Therefore will not add any antihypertensive. High-dose statin therapy is recommended. COVID-19 negative. Thank you for your consultation. Please call me if you have any questions. Werner Esquivel MD, FACP, FACC, FSCAI, FHRS, CCDS Interventional Cardiology Cardiac Electrophysiology Vascular Medicine and Endovascular Interventions Clinical Quality Measures AMI/AHF: ASA po Prior to arrival: Tavon Palm MD Feb 20, 2020 18:53
== END 2020-02-20 10:06 | disposition home or self-care (01) | DRG 247 ==
LOC: EDUNIT# 07:47 → ER FS 07:48 → ICU 10:12 → CSD 02-19 10:50
PROVIDERS: ADMIT Internal Medicine; ATTEND Internal Medicine
PROC: 027034Z Dilation of Coronary Artery, One Artery with Drug-eluting Intraluminal Device, Percutaneous Approach (ICD-10-PCS; principal; 2020-02-19)
PROC: 4A023N7 Measurement of Cardiac Sampling and Pressure, Left Heart, Percutaneous Approach (ICD-10-PCS; 2020-02-19)
PROC: B2111ZZ Fluoroscopy of Multiple Coronary Arteries using Low Osmolar Contrast (ICD-10-PCS; 2020-02-19)
DX: I21.4 Non-ST elevation (NSTEMI) myocardial infarction (principal); I25.10 Atherosclerotic heart disease of native coronary artery without angina pectoris; I10 Essential (primary) hypertension; F17.210 Nicotine dependence, cigarettes, uncomplicated; F10.10 Alcohol abuse, uncomplicated; F32.9 Major depressive disorder, single episode, unspecified; J44.9 Chronic obstructive pulmonary disease, unspecified; Z20.828 Contact with and (suspected) exposure to other viral communicable diseases
CPT/HCPCS: 36415; 71045; 80048; 80053; 80061; 83690; 83880; 84484; 85025; 85027; 85347; 85379; 85610; 85730; 87081; 87635; 93005; 93306; 93458

== ENCOUNTER 2020-05-05 10:01 | Observation (INO) | payer OTHER ==
[~2020-05-05] VITALS: Ht 154.9 cm; Wt 60.9 kg
[~2020-05-05 10:01] MED LIST changes: +ACET-2267 PO; +ASPI-1238 PO; +ATOR80TA76 PO; +DEXT25CA PO; +IBUP-2473 PO; +LISI10TA2 PO; +MTP25TSR PO; +NCT7P TD; +SERT100T8 PO; +TICA90TA PO
[2020-05-05] MEDS: NITROGLYCERIN 0.4 MG SL TABS BTL 25'S SL PRN ×2 (10:17→10:34)
--- NOTE | 2020-05-05 10:18 | ED Chest Pain ---
General Chief Complaint: Chest Pain Stated Complaint: CHEST PAIN Source: patient, RN notes reviewed, old records Exam Limitations: no limitations History of Present Illness Date Seen by Provider: May 05, 2020 Time Seen by Provider: 10:04 Initial Comments This patient is a 50-year-old female that presents to the emergency department with complaint chest pain states the pain started in her left shoulder is moved across her left chest and substernally. Patient states this feels similar to her previous cardiac issues. Patient did have a cardiac catheter with stent placement in February 2020 approximately 2 months ago for the same and had a 99% blockage of her LAD. Patient states she is on multiple medications. Patient does have a long history is a smoker and is currently smoking however states that she has cut back since her cardiac issue started. Patient does take aspirin and Belinta to daily and did take her medications this morning. Timing/Duration: 1-3 hours Severity/Quality: moderate Location: substernal, shoulder Radiation: shoulders Activities at Onset: none Prior CP/Workup: cardiac cath, echocardiography, heart attack Allergies and Home Medications Allergies Coded Allergies: meperidine (Verified Allergy, Unknown, 09/22/05) Home Medications Acetaminophen 500 Mg Tablet, 1,000 MG PO Q8H PRN for PAIN-MILD (1-4), (Reported) Aspirin 81 Mg Tablet.dr, 81 MG PO DAILY Prescribed by: COLT BURNS on 02/20/20 0950 Atorvastatin Calcium 80 Mg Tablet, 80 MG PO HS Prescribed by: COLT BURNS on 02/20/20 0951 Dextroamphetamine/Amphetamine 25 Mg Cap.er.24h, 25 MG PO DAILY, (Reported) Ibuprofen 200 Mg Tablet, 400 MG PO Q8H PRN for PAIN-MILD (1-4), (Reported) Lisinopril 10 Mg Tablet, 10 MG PO DAILY, (Reported) LAST FILLED 10-27-2019 #90 Metoprolol Succinate 25 Mg Tab.er.24h, 25 MG PO DAILY Prescribed by: COLT BURNS on 02/20/20 0950 Nicotine 1 Each Patch.td24, 1 EACH TD DAILY PRN Prescribed by: COLT BURNS on 02/20/20 0951 Sertraline HCl 100 Mg Tablet, 100 MG PO DAILY, (Reported) LAST FILLED 07-28-2020 #90 Ticagrelor 90 Mg Tablet, 90 MG PO BID Prescribed by: COLT BURNS on 02/20/20 0951 Patient Home Medication List Home Medication List Reviewed: Yes Review of Systems Review of Systems Constitutional: No no symptoms reported; see HPI; No chills, No diaphoresis, No dizziness, No fever, No malaise, No weakness, No weight gain, No weight loss, No other EENTM: No No Symptoms Reported, No See HPI, No Blurred Vision, No Double Vision, No Eye Pain, No Eye Tearing, No Ear Drainage, No Ear Pain, No Mouth Pain, No Mouth Swelling, No Nose Congestion, No Nose Pain, No Throat Pain, No Throat Swelling, No Other Respiratory: Denies No Symptoms Reported, Denies See HPI, Denies Cough, Denies Orthopnea, Denies Shortness of Air, Denies SOA With Exertion, Denies SOA at Rest, Denies Stridor, Denies Wheezing, Denies Other Cardiovascular: Denies No Symptoms Reported; See HPI, Chest Pain; Denies Edema, Denies Irregular Heart Rate, Denies Lightheadedness, Denies Palpitations, Denies Syncope, Denies Other Gastrointestinal: Denies No Symptoms Reported, Denies See HPI, Denies Abdomen Distended, Denies Abdominal Pain, Denies Blood Streaked Stools, Denies Constipated, Denies Diarrhea, Denies Difficulty Swallowing, Denies Nausea, Denies Poor Appetite, Denies Poor Fluid Intake, Denies Rectal Bleeding, Denies Vomiting, Denies Other Genitourinary: Denies No Symptoms Reported, Denies See HPI, Denies Burning, Denies Discharge, Denies Drainage, Denies Frequency, Denies Flank Pain, Denies Hematuria, Denies Incontinence, Denies Pain, Denies Urgency, Denies Other Musculoskeletal: No no symptoms reported, No see HPI, No back pain, No gout, No joint pain, No joint swelling, No muscle pain, No muscle stiffness, No muscle cramps, No muscle twitching, No muscle weakness, No neck pain, No other Skin: No no symptoms reported, No see HPI, No change in color, No change in hair/nails, No dryness, No hx of skin cancer, No lesions, No lumps, No pruritus, No rash, No other All Other Systems Reviewed Negative Unless Noted: Yes Past Wxeheon-Xniooh-Byulfj Hx Patient Social History Alcohol Beverage of Choice: Beer Type Used: Cigarettes 2nd Hand Smoke Exposure: Yes Recent Foreign Travel: No Contact w/Someone Who Travel: No Recent Hopitalizations: No Immunizations Up To Date Tetanus Booster (TDap): Unknown Seasonal Allergies Seasonal Allergies: No Past Medical History Surgeries: Yes Section, Hysterectomy Respiratory: No Cardiac: Yes Hypertension 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 oz. 61.749955ex; 24.45 BMI Method:Stated General Appearance: No Apparent Distress, WD/WN Respiratory: Chest Non Tender, Lungs Clear, Normal Breath Sounds, No Accessory Muscle Use, No Respiratory Distress Cardiovascular: Regular Rate, Rhythm, No Edema, No Gallop, No JVD, No Murmur, Normal Peripheral Pulses Gastrointestinal: Normal Bowel Sounds, No Organomegaly, No Pulsatile Mass, Non Tender Extremity: Normal Capillary Refill, Normal Inspection, Normal Range of Motion, Non Tender, No Calf Tenderness, No Pedal Edema Neurologic/Psychiatric: Alert, Oriented x3, No Motor/Sensory Deficits, Normal Mood/Affect Skin: Normal Color, Warm/Dry Progress/Results/Core Measures Results/Orders Lab Results Laboratory Tests Test 05/05/20 10:15 Range/Units White Blood Count 8.7 4.3-11.0 10^3/uL Red Blood Count 4.01 L 4.35-5.85 10^6/uL Hemoglobin 13.2 11.5-16.0 G/DL Hematocrit 39 35-52 % Mean Corpuscular Volume 97 80-99 FL Mean Corpuscular Hemoglobin 33 25-34 PG Mean Corpuscular Hemoglobin Concent 34 32-36 G/DL Red Cell Distribution Width 15.3 H 10.0-14.5 % Platelet Count 196 130-400 10^3/uL Mean Platelet Volume 11.6 H 7.4-10.4 FL Immature Granulocyte % (Auto) 0 % Neutrophils (%) (Auto) 74 42-75 % Lymphocytes (%) (Auto) 19 12-44 % Monocytes (%) (Auto) 5 0-12 % Eosinophils (%) (Auto) 1 0-10 % Basophils (%) (Auto) 1 0-10 % Neutrophils # (Auto) 6.4 1.8-7.8 X 10^3 Lymphocytes # (Auto) 1.6 1.0-4.0 X 10^3 Monocytes # (Auto) 0.4 0.0-1.0 X 10^3 Eosinophils # (Auto) 0.1 0.0-0.3 10^3/uL Basophils # (Auto) 0.1 0.0-0.1 10^3/uL Immature Granulocyte # (Auto) 0.0 0.0-0.1 10^3/uL Prothrombin Time 13.2 12.2-14.7 SEC INR Comment 1.0 0.8-1.4 Sodium Level 138 135-145 MMOL/L Potassium Level 4.2 3.6-5.0 MMOL/L Chloride Level 99 98-107 MMOL/L Carbon Dioxide Level 28 21-32 MMOL/L Anion Gap 11 5-14 MMOL/L Blood Urea Nitrogen 18 7-18 MG/DL Creatinine 0.81 0.60-1.30 MG/DL Estimat Glomerular Filtration Rate > 60 BUN/Creatinine Ratio 22 Glucose Level 98 70-105 MG/DL Calcium Level 9.3 8.5-10.1 MG/DL Corrected Calcium 8.9 8.5-10.1 MG/DL Total Bilirubin 0.3 0.1-1.0 MG/DL Aspartate Amino Transf (AST/SGOT) 21 5-34 U/L Alanine Aminotransferase (ALT/SGPT) 24 0-55 U/L Alkaline Phosphatase 96 40-136 U/L Troponin I < 0.30 <0.30 NG/ML Pro-B-Type Natriuretic Peptide 163.0 H <75.0 PG/ML Total Protein 6.9 6.4-8.2 GM/DL Albumin 4.5 3.2-4.5 GM/DL My Orders Orders - PUNEET ESTRADA MD Ed Iv/Invasive Line Start (05/05/20 10:10) Cbc With Automated Diff (05/05/20 10:10) Comprehensive Metabolic Panel (05/05/20 10:10) Probnp Fs (05/05/20 10:10) Protime With Inr (05/05/20 10:10) Thyroid Stimulating Hormone (05/05/20 10:10) Ekg Tracing (05/05/20 10:10) Chest 1 View Ap/Pa Only (05/05/20 10:10) Nitroglycerin 0.4 Mg Btl 25's (Nitrostat (05/05/20 10:15) Morphine Injection (Morphine Injection (05/05/20 10:39) Ondansetron Injection (Zofran Injectio (05/05/20 10:45) Morphine Injection (Morphine Injection (05/05/20 10:37) Troponin I Fs (05/05/20 11:03) Pantoprazole Injection (Protonix Injecti (05/05/20 11:45) Medications Given in ED Current Medications Medications Dose Ordered Sig/Parmjit Route Start Time Stop Time Status Last Admin Dose Admin Nitroglycerin 0.4 mg NEEDED PRN SL 05/05/20 10:15 05/05/20 10:34 0.4 MG Ondansetron HCl 4 mg ONCE ONCE IVP 05/05/20 10:45 05/05/20 10:46 DC 05/05/20 10:44 4 MG Progress Progress Note : Time: 11:36 Progress Note Patient states pain is much improved after 2 mg of morphine. Patient also had nitroglycerin in the ER. Negative troponin but continues to have chest pain. Patient's EKG is unremarkable. Patient had a cardiac catheter with right-sided heart issues right RCA was 99% occluded. Patient long history of smoking. I did speak with Dr. Lynch cardiology and [facility]. He agrees the patient is be transferred to their facility for further evaluation and treatment. I did discuss at length with Dr. Walker who is accepted this patient for transfer. Initial ECG Impression Date: May 05, 2020 Initial ECG Impression Time: 10:04 Initial ECG Rate: 74 Initial ECG Rhythm: Normal Sinus Initial ECG Intervals: Normal Initial ECG Impression: Normal Comment Normal sinus rhythm heart rate 74. Departure Impression Primary Impression: Chest pain Disposition: XFER SHT-TRM HOSP Condition: Stable Admissions Decision to Admit Reason: Admit from ER (General) Decision to Admit/Date: May 05, 2020 Time/Decision to Admit Time: 11:37 Transfer Transfer Reason: Exceeds level of care Time Spoke to Accepting Phy: 11:[address] Walker is accepted this patient for transfer Dr. Lynch cardiology be consult. Transfer Time: 11:38 Transfer Facility: [facility] Method of Transfer: EMS Departure-Patient Inst. Referrals: SELF,NAHUM CABELLO (PCP/Family) Primary Care Physician PUNEET ESTRADA MD May 05, 2020 10:18
[2020-05-05 10:24] LABS: HEMATOCRIT 39 % (35-52); HEMOGLOBIN 13.2 G/DL (11.5-16.0); MEAN CORPUSCULAR HEMOGLOBIN 33 PG (25-34); MEAN CORPUSCULAR HGB CONC 34 G/DL (32-36); MEAN CORPUSCULAR VOLUME 97 FL (80-99); PLATELET COUNT 196 10^3/uL (130-400); WHITE BLOOD COUNT 8.7 10^3/uL (4.3-11.0)
[2020-05-05 10:25] LABS: BASOPHILS % (AUTO) 1 % (0-10); EOSINOPHILS % (AUTO) 1 % (0-10); LYMPHOCYTES % (AUTO) 19 % (12-44); MEAN PLATELET VOLUME 11.6 FL (7.4-10.4); MONOCYTES % (AUTO) 5 % (0-12); NEUTROPHILS % (AUTO) 74 % (42-75)
[2020-05-05 10:26] LABS: BASOPHILS # (AUTO) 0.1 10^3/uL (0.0-0.1); EOSINOPHILS # (AUTO) 0.1 10^3/uL (0.0-0.3); LYMPHOCYTES # (AUTO) 1.6 X 10^3 (1.0-4.0); MONOCYTES # (AUTO) 0.4 X 10^3 (0.0-1.0); NEUTROPHILS # (AUTO) 6.4 X 10^3 (1.8-7.8)
--- NOTE | 2020-05-05 10:33 | Diagnostic Imaging Report ---
Portable erect AP chest at 10:16. Indication: Left arm pain The heart size is within normal limits and stable when compared to 02/18/2020. The lungs are clear. There is no sign of failure, pneumonia or pleural effusion. The mediastinum is not widened. The osseous structures are intact. Impression: There is no evidence for active disease. When compared to prior study there has been no adverse change. Dictated by: Dictated on workstation # [id number]
[2020-05-05] MEDS ORDERED: morphine INJ 10 MG/ML 1ML (SYR OR VIAL) ONE (10:37)
[2020-05-05] MEDS ORDERED: morphine INJ 10 MG/ML 1ML (SYR OR VIAL) IVP STA (10:39)
[2020-05-05] MEDS ORDERED: ONDANSETRON 4 MG/2 ML (SDV) Z0FRAN IVP ONE (10:45)
[2020-05-05 10:46] LABS: PROTHROMBIN TIME PATIENT 13.2 SEC (12.2-14.7)
[2020-05-05 10:58] LABS: ALANINE AMINOTRANSFERASE 24 U/L (0-55); ALKALINE PHOSPHATASE 96 U/L (40-136); BILIRUBIN,TOTAL 0.3 MG/DL (0.1-1.0); BUN/CREATININE RATIO 22; CALCIUM 9.3 MG/DL (8.5-10.1); CARBON DIOXIDE 28 MMOL/L (21-32); CHLORIDE 99 MMOL/L (98-107); CREATININE SERUM 0.81 MG/DL (0.60-1.30); GFR ESTIMATED > 60; GLUCOSE 98 MG/DL (70-105); POTASSIUM 4.2 MMOL/L (3.6-5.0); SODIUM 138 MMOL/L (135-145)
[2020-05-05 10:59] LABS: ALBUMIN 4.5 GM/DL (3.2-4.5); TOTAL PROTEIN 6.9 GM/DL (6.4-8.2)
[2020-05-05] MEDS ORDERED: HEParin 1000 UNIT/ML (10ML VIAL) FOR BOLUS IV STA (11:35)
[2020-05-05] MEDS ORDERED: PANTOPRAZOLE 40 MG (PROTONIX) VIAL IV ONE (11:45)
--- NOTE | 2020-05-05 13:29 | NUR ---
CHRIS FITCH admitted to room 425-1, with an admitting diagnosis of chest pain, on 05/05/20 from [facility] via stretcher- EMS, accompanied by EMS staff .CHRIS FITCH introduced to surroundings, call light, bed controls, phone, TV, temperature control, lights, meal times, smoking policy, visitor policy, side rail policy, bathrooms and showers. Patient Rights given to patient in the handbook. CHRIS FITCH verbalizes understanding that [facility] is not responsible for the loss or damage to any personal effects or valuables that are kept in the patients posession during their hospitalization. The following Patient Care Plans and discharge were discussed with the patient. CHRIS FITCH verbalizes understanding of Interdisciplinary Patient Education. Patient was informed about the Rapid Response Team and its purpose.
[2020-05-05 14:44] VITALS: BP 111/73
[2020-05-05] MEDS ORDERED: PANTOPRAZOLE 40 MG (PROTONIX) TAB PO ONE ×2 (15:45→16:06)
[2020-05-05 16:00] VITALS: BP 133/69
--- NOTE | 2020-05-05 16:23 | Consultation-Cardiology ---
HPI-Cardiology Cardiology Consultation Date of Consultation 05/05/20 Date of Admission Time Seen by Provider: 16:19 Indication: chest pain HPI 50 years old lady with history of coronary artery disease, hypertension, hyperlipidemia and tobaccoism, woke up with left shoulder pain which was persistent, had mild upper chest pain on the left side. Scheduled an appointment with her primary care physician, while waiting at the waiting room to have more severe retrosternal chest pain, patient was sent to the emergency room. Responded to nitroglycerin and morphine. Since then she's been feeling better, denied any active chest pain but still having mild left shoulder pain behind her left scapula. No shortness of breath. No palpitation. No syncope. Home Medications & Allergies Allergies: Coded Allergies: meperidine (Verified Allergy, Unknown, 09/22/05) Home Medication List Reviewed: Yes IFA-Urbjce-Dhkkhz Hx Patient Social History Marital Status: Employed/Student: employed Alcohol Use: Regular Use Recreational Drug Use: No Smoking Status: Current Everyday Smoker Type Used: Cigarettes 2nd Hand Smoke Exposure: Yes Recent Foreign Travel: No Recent Infectious Disease Expo: No Recent Hopitalizations: No Immunizations Up To Date Tetanus Booster (TDap): Unknown Past Medical History Discussed below Family Medical History Family Medical Hx Noncontributory Review of Systems-General Review of Systems Constitutional: No no symptoms reported; see HPI; No chills, No diaphoresis, No dizziness, No fever, No malaise, No weakness, No weight gain, No weight loss, No other EENTM: see HPI, no symptoms reported Respiratory: see HPI; No cough, No dyspnea on exertion, No hemoptysis, No orthopnea, No phlegm, No short of breath, No stridor, No wheezing, No other Cardiovascular: see HPI, chest pain; No edema, No Hx of Intervention, No palpitations, No syncope, No vascular heart diseas, No other Gastrointestinal: no symptoms reported, see HPI Genitourinary: no symptoms reported, see HPI Musculoskeletal: No no symptoms reported, No see HPI, No back pain, No gout, No joint pain, No joint swelling, No muscle pain, No muscle stiffness, No muscle cramps, No muscle twitching, No muscle weakness, No neck pain, No other Skin: No no symptoms reported, No see HPI, No change in color, No change in hair/nails, No dryness, No hx of skin cancer, No lesions, No lumps, No pruritus, No rash, No other Psychiatric/Neurological: No Symptoms Reported, See HPI All Other Systems Reviewed Negative Unless Noted: Yes Reviewed Test Results Reviewed Test Results Lab Laboratory Tests Test 05/05/20 10:15 Range/Units White Blood Count 8.7 4.3-11.0 10^3/uL Red Blood Count 4.01 L 4.35-5.85 10^6/uL Hemoglobin 13.2 11.5-16.0 G/DL Hematocrit 39 35-52 % Mean Corpuscular Volume 97 80-99 FL Mean Corpuscular Hemoglobin 33 25-34 PG Mean Corpuscular Hemoglobin Concent 34 32-36 G/DL Red Cell Distribution Width 15.3 H 10.0-14.5 % Platelet Count 196 130-400 10^3/uL Mean Platelet Volume 11.6 H 7.4-10.4 FL Immature Granulocyte % (Auto) 0 % Neutrophils (%) (Auto) 74 42-75 % Lymphocytes (%) (Auto) 19 12-44 % Monocytes (%) (Auto) 5 0-12 % Eosinophils (%) (Auto) 1 0-10 % Basophils (%) (Auto) 1 0-10 % Neutrophils # (Auto) 6.4 1.8-7.8 X 10^3 Lymphocytes # (Auto) 1.6 1.0-4.0 X 10^3 Monocytes # (Auto) 0.4 0.0-1.0 X 10^3 Eosinophils # (Auto) 0.1 0.0-0.3 10^3/uL Basophils # (Auto) 0.1 0.0-0.1 10^3/uL Immature Granulocyte # (Auto) 0.0 0.0-0.1 10^3/uL Prothrombin Time 13.2 12.2-14.7 SEC INR Comment 1.0 0.8-1.4 Sodium Level 138 135-145 MMOL/L Potassium Level 4.2 3.6-5.0 MMOL/L Chloride Level 99 98-107 MMOL/L Carbon Dioxide Level 28 21-32 MMOL/L Anion Gap 11 5-14 MMOL/L Blood Urea Nitrogen 18 7-18 MG/DL Creatinine 0.81 0.60-1.30 MG/DL Estimat Glomerular Filtration Rate > 60 BUN/Creatinine Ratio 22 Glucose Level 98 70-105 MG/DL Calcium Level 9.3 8.5-10.1 MG/DL Corrected Calcium 8.9 8.5-10.1 MG/DL Total Bilirubin 0.3 0.1-1.0 MG/DL Aspartate Amino Transf (AST/SGOT) 21 5-34 U/L Alanine Aminotransferase (ALT/SGPT) 24 0-55 U/L Alkaline Phosphatase 96 40-136 U/L Troponin I < 0.30 <0.30 NG/ML Pro-B-Type Natriuretic Peptide 163.0 H <75.0 PG/ML Total Protein 6.9 6.4-8.2 GM/DL Albumin 4.5 3.2-4.5 GM/DL Thyroid Stimulating Hormone (TSH) 1.16 0.35-4.94 UIU/ML Physical Exam Physical Exam Vital Signs Vital Signs - First Documented 05/05/20 10:01 Temp 35.6 Pulse 86 Resp 22 B/P (MAP) 109/92 (98) Pulse Ox 100 O2 Delivery Room Air O2 Flow Rate 2.0 Capillary Refill : Less Than 3 Seconds Height, Weight, BMI Height: 5'0" Weight: 135lbs. oz. 61.562866go; 25.71 BMI Method:Stated General Appearance: No Apparent Distress, WD/WN Respiratory: Chest Non Tender, Lungs Clear, Normal Breath Sounds, No Accessory Muscle Use, No Respiratory Distress Cardiovascular: Regular Rate, Rhythm, No Edema, No Gallop, No JVD, No Murmur, Normal Peripheral Pulses Gastrointestinal: Normal Bowel Sounds, No Organomegaly, No Pulsatile Mass, Non Tender Extremity: Normal Capillary Refill, Normal Inspection, Normal Range of Motion, Non Tender, No Calf Tenderness, No Pedal Edema Neurologic/Psychiatric: Alert, Oriented x3, No Motor/Sensory Deficits, Normal Mood/Affect Skin: Normal Color, Warm/Dry A/P-Cardiology Admission Diagnosis Chest pain Coronary artery disease Hypertension Hyperlipidemia Assessment/Plan Chest pain nonspecific etiology, no acute EKG changes, had minimal nondiagnostic changes, cardiac enzymes are negative, she is currently chest pain-free. I will continue monitoring overnight, we'll consider use of sublingual nitroglycerin as needed Coronary artery disease status post cardiac catheterization with stenting to the right coronary artery with drug-eluting stent done by Dr. Esquivel earlier this month, restart aspirin and Brilinta and continue to monitor Tobaccoism, we had a long discussion about smoking cessation Hyperlipidemia started on Lipitor 80 mg daily, I will resume medication Hypertension, controlled, continue to monitor History of alcohol abuse. Deferred to the primary care physician High risk for peptic ulcer disease, started on PPI Clinical Quality Measures AMI/AHF: ASA po Prior to arrival: No (given in ER) DVT/VTE Risk/Contraindication: Risk Factor Score Per Nursin RFS Level Per Nursing on Admit: 2=Moderate SIMI HENRIQUEZ MD May 05, 2020 16:23
--- NOTE | 2020-05-05 17:18 | History & Physical ---
HPI History of Present Illness: 50 yo F that presented to her PCP this AM after being woke up with left shoulder pain. Patient states that she was sitting in her PCP office when she started to have the chest pain and was sent to ER. She still has the shoulder pain but denies any chest pain at this time. States that the pain is similar but not the same as it was in February. Denies any shortness of breath with the pain. Denies any pain in her left arm. She has cut down on her smoking but continues to smoke 5 cigs per day from 1 ppd prior to NSTEMI. She has a h/o EtOH abuse but has not had anything to drink in months. States that she is feeling better but worried. Source: patient, family (Mother) Exam Limitations: no limitations Date seen by provider: May 05, 2020 Time Seen by Provider: 15:00 Attending Physician Blake Walker MD PCP Self,Clark CABELLO Consult Date of Admission May 05, 2020 at 13:20 Home Medications Home Medications Reviewed patient Home Medication Reconciliation performed by pharmacy medication reconciliations orthopedic technician and/or nursing. Patients Allergies have been reviewed. Allergies Coded Allergies: meperidine (Verified Allergy, Unknown, 09/22/05) JWM-[id number]-Mymnkd Hx Patient Social History Marrital Status: Employed/Student: employed Alcohol Use: Regular Use Recreational Drug Use: No Smoking Status: Current Everyday Smoker Type Used: Cigarettes 2nd Hand Smoke Exposure: Yes Recent Foreign Travel: No Contact w/other who traveled: No Recent Hopitalizations: No Recent Infectious Disease Expo: No Immunizations Up To Date Tetanus Booster (TDap): Unknown Past Medical History CAD with Stent in RCA 02/2020 HTN EtOH abuse Tobaccoism HLD Review of Systems (CHC) Constitutional: no symptoms reported; No fever, No malaise, No weakness EENTM: no symptoms reported; No mouth pain, No nose congestion, No nose pain Respiratory: no symptoms reported; No dyspnea on exertion, No orthopnea, No short of breath Cardiovascular: chest pain; No edema, No palpitations Gastrointestinal: no symptoms reported; No abdominal pain, No constipation, No diarrhea, No nausea, No vomiting Musculoskeletal: No back pain; joint pain (Left shoulder) Skin: no symptoms reported; No lesions, No rash Psychiatric/Neurological: No Symptoms Reported; Denies Headache, Denies Numbness, Denies Weakness Reviewed Test Results Reviewed Test Results Lab Laboratory Tests Test 05/05/20 10:15 Range/Units White Blood Count 8.7 4.3-11.0 10^3/uL Red Blood Count 4.01 L 4.35-5.85 10^6/uL Hemoglobin 13.2 11.5-16.0 G/DL Hematocrit 39 35-52 % Mean Corpuscular Volume 97 80-99 FL Mean Corpuscular Hemoglobin 33 25-34 PG Mean Corpuscular Hemoglobin Concent 34 32-36 G/DL Red Cell Distribution Width 15.3 H 10.0-14.5 % Platelet Count 196 130-400 10^3/uL Mean Platelet Volume 11.6 H 7.4-10.4 FL Immature Granulocyte % (Auto) 0 % Neutrophils (%) (Auto) 74 42-75 % Lymphocytes (%) (Auto) 19 12-44 % Monocytes (%) (Auto) 5 0-12 % Eosinophils (%) (Auto) 1 0-10 % Basophils (%) (Auto) 1 0-10 % Neutrophils # (Auto) 6.4 1.8-7.8 X 10^3 Lymphocytes # (Auto) 1.6 1.0-4.0 X 10^3 Monocytes # (Auto) 0.4 0.0-1.0 X 10^3 Eosinophils # (Auto) 0.1 0.0-0.3 10^3/uL Basophils # (Auto) 0.1 0.0-0.1 10^3/uL Immature Granulocyte # (Auto) 0.0 0.0-0.1 10^3/uL Prothrombin Time 13.2 12.2-14.7 SEC INR Comment 1.0 0.8-1.4 Sodium Level 138 135-145 MMOL/L Potassium Level 4.2 3.6-5.0 MMOL/L Chloride Level 99 98-107 MMOL/L Carbon Dioxide Level 28 21-32 MMOL/L Anion Gap 11 5-14 MMOL/L Blood Urea Nitrogen 18 7-18 MG/DL Creatinine 0.81 0.60-1.30 MG/DL Estimat Glomerular Filtration Rate > 60 BUN/Creatinine Ratio 22 Glucose Level 98 70-105 MG/DL Calcium Level 9.3 8.5-10.1 MG/DL Corrected Calcium 8.9 8.5-10.1 MG/DL Total Bilirubin 0.3 0.1-1.0 MG/DL Aspartate Amino Transf (AST/SGOT) 21 5-34 U/L Alanine Aminotransferase (ALT/SGPT) 24 0-55 U/L Alkaline Phosphatase 96 40-136 U/L Troponin I < 0.30 <0.30 NG/ML Pro-B-Type Natriuretic Peptide 163.0 H <75.0 PG/ML Total Protein 6.9 6.4-8.2 GM/DL Albumin 4.5 3.2-4.5 GM/DL Thyroid Stimulating Hormone (TSH) 1.16 0.35-4.94 UIU/ML Physical Exam-(CHC) Physical Exam Vital Signs VS - Last 72 Hours, by Label 05/05/20 05/05/20 05/05/20 05/05/20 10:01 10:01 12:35 13:25 Temp 35.6 35.4 Pulse 86 68 Resp 22 17 B/P (MAP) 109/92 (98) 135/78 (98) Pulse Ox 100 98 O2 Delivery Room Air Nasal Cannula Nasal Cannula Room Air O2 Flow Rate 2.0 2.0 05/05/20 05/05/20 05/05/20 05/05/20 14:44 14:44 14:49 16:00 Temp 35.4 35.4 36.5 Pulse 60 60 54 53 Resp 16 16 18 B/P (MAP) 111/73 111/73 (86) 133/69 (90) Pulse Ox 95 95 100 O2 Delivery Room Air Room Air Room Air Capillary Refill : Less Than 3 Seconds General Appearance: WD/WN, no apparent distress, thin HEENT: PERRL/EOMI Neck: non-tender, full range of motion, supple Respiratory: chest non-tender, lungs clear, normal breath sounds, no respiratory distress, no accessory muscle use Cardiovascular: normal peripheral pulses, regular rate, rhythm, no edema, no murmur Gastrointestinal: normal bowel sounds, non tender, soft, no organomegaly Back: no CVA tenderness, no vertebral tenderness Extremities: normal range of motion, non-tender, normal inspection, no pedal edema, no calf tenderness, normal capillary refill 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/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: 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, no motor/sensory deficits, alert, normal mood/affect, oriented x 3 Skin: normal color, warm/dry Lymphatic: no adenopathy Assessment/Plan Assessment/Plan Admission Status: Observation (1) Atypical chest pain Status: Acute Assessment & Plan: - Due to recent intervention Dr Lynch with Cardiology consulted, appreciate recommendations (2) CAD (coronary artery disease) Status: Chronic Assessment & Plan: - Continue ASA/Brillenta/Statin/BB Qualifiers: Qualified Codes: I25.10 - Atherosclerotic heart disease of [place] coronary artery without angina pectoris (3) HTN (hypertension) Status: Chronic Qualifiers: Qualified Codes: I10 - Essential (primary) hypertension (4) HLD (hyperlipidemia) Status: Chronic Qualifiers: Qualified Codes: E78.2 - Mixed hyperlipidemia (5) Tobacco abuse Status: Chronic Assessment & Plan: - Discussed the importance of cessation, great job on cutting down Clinical Quality Measures AMI/AHF: ASA po Prior to arrival: No (given in ER) DVT/VTE Risk/Contraindication: Risk Factor Score Per Nursin RFS Level Per Nursing on Admit: 2=Moderate Copy Copies To 1: SELF,BLAKE SANCHEZ MD, MD May 05, 2020 17:18
[2020-05-05 19:12] VITALS: BP 102/63
[2020-05-05] MEDS: TICAGRELOR 90 MG TABLET (BRILINTA) PO SCH (20:39)
[2020-05-06 00:10] VITALS: BP 98/55
[2020-05-06 04:24] VITALS: BP 114/65
[2020-05-06 06:15] LABS: HEMOGLOBIN 13.1 g/dL (11.5-16.0); MEAN PLATELET VOLUME 12.4 fL (9.0-12.2); WHITE BLOOD COUNT 7.5 10^3/uL (4.3-11.0)
[2020-05-06 06:20] LABS: ALBUMIN 3.9 GM/DL (3.2-4.5); CHLORIDE 103 MMOL/L (98-107); POTASSIUM 4.3 MMOL/L (3.6-5.0); SODIUM 139 MMOL/L (135-145)
[2020-05-06 06:21] LABS: CALCIUM 8.8 MG/DL (8.5-10.1)
[2020-05-06 06:22] LABS: GLUCOSE 107 MG/DL (70-105); TOTAL PROTEIN 6.4 GM/DL (6.4-8.2)
[2020-05-06 06:23] LABS: CARBON DIOXIDE 27 MMOL/L (21-32)
[2020-05-06 06:24] LABS: BILIRUBIN,TOTAL 0.3 MG/DL (0.1-1.0)
[2020-05-06 06:26] LABS: ALKALINE PHOSPHATASE 85 U/L (40-136); CREATININE SERUM 0.87 MG/DL (0.60-1.30); GFR ESTIMATED > 60
[2020-05-06 06:27] LABS: BUN/CREATININE RATIO 25
[2020-05-06 06:29] LABS: ALANINE AMINOTRANSFERASE 26 U/L (0-55)
[2020-05-06 08:00] VITALS: BP 111/64
[2020-05-06] MEDS: TICAGRELOR 90 MG TABLET (BRILINTA) PO SCH (08:42)
--- NOTE | 2020-05-06 08:47 | Cardiology Progress Note ---
Subjective Date Seen by Provider: May 06, 2020 Time Seen by Provider: 08:46 Subjective/Events-last exam patient is feeling better today, no chest pain was reported Review of Systems General: No Chills, No Night Sweats, No Fatigue, No Malaise, No Appetite, No Other HEENT: No Head Aches, No Visual Changes, No Eye Pain, No Ear Pain, No Dysphasia, No Sinus Congestion, No Post Nasal Drip, No Sore Throat, No Other Pulmonary: No Dyspnea, No Cough, No Pleuritic Chest Pain, No Other Cardiovascular: No: Chest Pain, Palpitations, Orthopnea, Paroxysmal Noc. Dyspnea, Edema, Lt Headedness, Other Objective-Cardiology Exam Last Set of Vital Signs Vital Signs 05/05/20 05/06/20 12:35 08:00 Temp 36.2 Pulse 58 Resp 16 B/P (MAP) 111/64 (80) Pulse Ox 99 O2 Delivery Room Air O2 Flow Rate 2.0 Capillary Refill : Less Than 3 Seconds I&O Intake and Output 05/06/20 00:00 Intake Total 1183 ml Balance 1183 ml Intake Oral 1183 ml # Voids 3 Daily Weight Change No No General: Alert, Oriented X3, Cooperative HEENT: Atraumatic, PERRLA Neck: Supple, No JVD, No Thyromegaly Lungs: Clear to Auscultation, Normal Air Movement Heart: Regular Rate, Normal S1, Normal S2, No Murmurs Abdomen: Normal Bowel Sounds, Soft, No Tenderness, No Hepatosplenomegaly, No Masses Extremities: No Clubbing, No Cyanosis, No Edema, Normal Pulses, No Tenderness/Swelling Skin: No Rashes, No Breakdown, No Significant Lesion Neuro: Normal Gait, Normal Speech, Strength at 5/5 X4 Ext, Normal Tone, Sensation Intact Psych/Mental Status: Mental Status NL, Mood NL Results Lab Laboratory Tests 05/05/20 10:15 05/06/20 05:39 A/P-Cardiology Admission Diagnosis Chest pain Coronary artery disease Hypertension Hyperlipidemia Assessment/Plan Chest pain nonspecific etiology, no acute EKG changes, had minimal nondiagnostic changes, cardiac enzymes are negative, she is currently chest pain-free. Okay for discharge and follow-up as an outpatient with Dr. Esquivel Coronary artery disease status post cardiac catheterization with stenting to the right coronary artery with drug-eluting stent done by Dr. Esquivel earlier this month, restart aspirin and Brilinta and continue to monitor Tobaccoism, we had a long discussion about smoking cessation Hyperlipidemia started on Lipitor 80 mg daily, I will resume medication Hypertension, controlled, continue to monitor History of alcohol abuse. Deferred to the primary care physician High risk for peptic ulcer disease, started on PPI Okay for discharge and follow-up with Dr. Esquivel, start as needed nitroglycerin as an outpatient Clinical Quality Measures AMI/AHF: ASA po Prior to arrival: No (given in ER) DVT/VTE Risk/Contraindication: Risk Factor Score Per Nursin RFS Level Per Nursing on Admit: 2=Moderate SIMI HENRIQUEZ MD May 06, 2020 8:47 am
[2020-05-06] MEDS ORDERED: TICA90TA PO (08:50)
[2020-05-06] MEDS ORDERED: ASPI-1238 PO (08:50)
[2020-05-06] MEDS ORDERED: ATOR80TA76 PO (08:50)
[2020-05-06] MEDS ORDERED: MTP25TSR PO (08:50)
--- NOTE | 2020-05-06 08:51 | NUR ---
SPOKE WITH THE PT, WENT THRU THE EXT MED HISTORY AND CALLED [facility] BRIGETTE WALSH AND [facility] TO COMPLETE THE MED REC 04-08-2020 ADDERALL 25MG XR #28/28DS - LAST FILLED AT [facility] SERTRALINE 100MG WAS LAST FILLED ON 07-28-2020 #90/90DS- WHEN I ASKED THE PT ABOUT THIS, SHE DENIES THAT BEING THE LAST FILL DATE AND SAYS [facility] FILLED IT RECENTLY. I CALLED [facility] AND WAS TOLD THE SAME INFORMATION THE EXT MED HISTORY SHOWS. I THEN ASKED THE PT AGAIN ABOUT THIS AND SHE INFORMS ME THAT A RELATIVE PICKED IN UP IN FEBRUARY 2020 FROM [facility]. I ASKED IF THE PT COULD REACH A FAMILY MEMBER/FRIEND AND TAKE A PICTURE OF THE BOTTLE. PT SAYS SHE WILL TRY AND I LET HER KNOW TO LET HER NURSE (DENISSE MARCIAL) KNOW WHAT SHE FINDS OUT. I SPOKE WITH DENISSE ABOUT THE SITUATION AND RN SAID HE WOULD LET ME KNOW OTC MEDS: ASPIRIN 81 TYLENOL IBUPROFEN
[2020-05-06] MEDS ORDERED: ASPIRIN E.C. 81 MG (ECOTRIN) TAB PO SCH (09:00)
--- NOTE | 2020-05-06 09:09 | Progress Note ---
Subjective Subjective/Events-last exam pt was laying in bed watching tv. pt stated that she is doing much better than yesterday. pt stated that she is not having any chest pain like she did yesterday. pt is still having mild shoulder pain, said that she probably just slept on it wrong. pt denies chest pain, palpitations and shortness of breath. Review of Systems General: No Chills, No Fatigue Pulmonary: No Dyspnea, No Cough Cardiovascular: No: Chest Pain, Palpitations Gastrointestinal: No: Nausea, Vomiting, Diarrhea, Constipation Genitourinary: No Dysuria, No Incontinence Musculoskeletal: shoulder pain (Left); No: neck pain Focused Exam Respiratory: Chest Non Tender, Lungs Clear, Normal Breath Sounds, No Accessory Muscle Use, No Respiratory Distress Cardiovascular: Regular Rate, Rhythm, No Edema, No Murmur, Normal Peripheral Pulses Peripheral Pulses: 2+ Carotid (R), 2+ Carotid (L), 2+ Dorsalis Pedis (R), 2+ Left Dors-Pedis (L), 2+ Radial Pulses (R), 2+ Radial Pulses (L) Skin: normal color, warm/dry; No diaphoresis Objective Exam Last Set of Vital Signs Vital Signs Date Time Temp Pulse Resp B/P (MAP) Pulse Ox O2 Delivery O2 Flow Rate FiO2 05/06/20 08:00 36.2 58 16 111/64 (80) 99 Room Air 05/05/20 12:35 2.0 Capillary Refill : Less Than 3 Seconds I&O Intake and Output 05/06/20 00:00 Intake Total 1183 ml Balance 1183 ml Intake Oral 1183 ml # Voids 3 Daily Weight Change No No General: Alert, Oriented X3, Cooperative Neck: Supple Heart: Regular Rate, No Murmurs Extremities: No Edema, No Tenderness/Swelling Neuro: Normal Speech, Normal Tone Results/Procedures Lab Laboratory Tests 05/05/20 10:15: White Blood Count 8.7, Red Blood Count 4.01L, Hemoglobin 13.2, Hematocrit 39, Mean Corpuscular Volume 97, Mean Corpuscular Hemoglobin 33, Mean Corpuscular Hemoglobin Concent 34, Red Cell Distribution Width 15.3H, Platelet Count 196, Mean Platelet Volume 11.6H, Immature Granulocyte % (Auto) 0, Neutrophils (%) (Auto) 74, Lymphocytes (%) (Auto) 19, Monocytes (%) (Auto) 5, Eosinophils (%) (Auto) 1, Basophils (%) (Auto) 1, Neutrophils # (Auto) 6.4, Lymphocytes # (Auto) 1.6, Monocytes # (Auto) 0.4, Eosinophils # (Auto) 0.1, Basophils # (Auto) 0.1, Immature Granulocyte # (Auto) 0.0, Prothrombin Time 13.2, INR Comment 1.0, Sodium Level 138, Potassium Level 4.2, Chloride Level 99, Carbon Dioxide Level 28, Anion Gap 11, Blood Urea Nitrogen 18, Creatinine 0.81, Estimat Glomerular Filtration Rate > 60, BUN/Creatinine Ratio 22, Glucose Level 98, Calcium Level 9.3, Corrected Calcium 8.9, Total Bilirubin 0.3, Aspartate Amino Transf (AST/SGOT) 21, Alanine Aminotransferase (ALT/SGPT) 24, Alkaline Phosphatase 96, Troponin I < 0.30, Pro-B-Type Natriuretic Peptide 163.0H, Total Protein 6.9, Albumin 4.5, Thyroid Stimulating Hormone (TSH) 1.16 05/06/20 05:39: White Blood Count 7.5, Red Blood Count 4.01, Hemoglobin 13.1, Hematocrit 40, Mean Corpuscular Volume 99, Mean Corpuscular Hemoglobin 33, Mean Corpuscular Hemoglobin Concent 33, Red Cell Distribution Width 15.3H, Platelet Count 206, Mean Platelet Volume 12.4H, Sodium Level 139, Potassium Level 4.3, Chloride Level 103, Carbon Dioxide Level 27, Anion Gap 9, Blood Urea Nitrogen 22H, Creatinine 0.87, Estimat Glomerular Filtration Rate > 60, BUN/Creatinine Ratio 25, Glucose Level 107H, Calcium Level 8.8, Corrected Calcium 8.9, Total Bilirubin 0.3, Aspartate Amino Transf (AST/SGOT) 24, Alanine Aminotransferase (ALT/SGPT) 26, Alkaline Phosphatase 85, Troponin I < 0.028, Total Protein 6.4, Albumin 3.9 Assessment/Plan Assessment/Plan (1) Atypical chest pain Status: Acute Assessment & Plan: - Due to recent intervention Dr Lynch with Cardiology consulted, appreciate recommendations (2) CAD (coronary artery disease) Status: Chronic Assessment & Plan: - Continue ASA/Brillenta/Statin/BB Qualifiers: Qualified Codes: I25.10 - Atherosclerotic heart disease of [place] coronary artery without angina pectoris (3) HTN (hypertension) Status: Chronic Qualifiers: Qualified Codes: I10 - Essential (primary) hypertension (4) HLD (hyperlipidemia) Status: Chronic Qualifiers: Qualified Codes: E78.2 - Mixed hyperlipidemia (5) Tobacco abuse Status: Chronic Assessment & Plan: - Discussed the importance of cessation, great job on cutting down Clinical Quality Measures AMI/AHF: ASA po Prior to arrival: No (given in ER) DVT/VTE Risk/Contraindication: Risk Factor Score Per Nursin RFS Level Per Nursing on Admit: 2=Moderate ANGELIQUE ANDRES MED STUDENT May 06, 2020 09:09
--- NOTE | 2020-05-06 11:19 | Discharge Summary ---
Diagnosis/Chief Complaint Date of Admission May 05, 2020 at 13:20 Date of Discharge 05/06/2020 Admission Diagnosis Admission Diagnosis See problem list Discharge Diagnosis See Below Problems/Diagnosis: (1) Atypical chest pain Assessment & Plan: - Due to recent intervention Dr Lynch with Cardiology consulted, appreciate recommendations 05/06: Patient OK'ed to d/c from cardiology standpoint, will have f.u outpatient Status: Acute (2) CAD (coronary artery disease) Assessment & Plan: - Continue ASA/Brillenta/Statin/BB Qualifiers: Qualified Codes: I25.10 - Atherosclerotic heart disease of [place] coronary artery without angina pectoris Status: Chronic (3) HTN (hypertension) Qualifiers: Qualified Codes: I10 - Essential (primary) hypertension Status: Chronic (4) HLD (hyperlipidemia) Qualifiers: Qualified Codes: E78.2 - Mixed hyperlipidemia Status: Chronic (5) Tobacco abuse Assessment & Plan: - Discussed the importance of cessation, great job on cutting down Status: Chronic Chief Complaint/HPI Chief Complaint/HPI 50 yo F that presented to her PCP this AM after being woke up with left shoulder pain. Patient states that she was sitting in her PCP office when she started to have the chest pain and was sent to ER. She still has the shoulder pain but denies any chest pain at this time. States that the pain is similar but not the same as it was in February. Denies any shortness of breath with the pain. Denies any pain in her left arm. She has cut down on her smoking but continues to smoke 5 cigs per day from 1 ppd prior to NSTEMI. She has a h/o EtOH abuse but has not had anything to drink in months. States that she is feeling better but worried. Discharge Summary-Simple/Stand Consultations Dr Lynch: Cardiology Discharge Physical Examination Allergies: Coded Allergies: meperidine (Verified Allergy, Unknown, 09/22/05) Vitals & I&Os Vital Sign - Last 12Hours Date Time Temp Pulse Resp B/P (MAP) Pulse Ox O2 Delivery O2 Flow Rate FiO2 05/06/20 08:00 Room Air 05/06/20 08:00 36.2 58 16 111/64 (80) 99 05/05/20 12:35 2.0 Intake and Output 05/06/20 00:00 Intake Total 1183 ml Balance 1183 ml General Appearance: Alert, Oriented X3, Cooperative, No Acute Distress HEENT: Mucous Memb Moist/[place] Respiratory: Clear to Auscultation, Normal Air Movement Cardiovascular: Regular Rate, No Murmurs Abdominal: Normal Bowel Sounds, Soft, No Tenderness, No Masses Extremities: No Edema, No Tenderness/Swelling Skin: No Rashes, No Breakdown Neuro: Normal Speech, Strength at 5/5 X4 Ext, Sensation Intact, Cranial Nerves 3-12 NL Psych/Mental Status: Mental Status NL, Mood NL Hospital Course Was the Problem List Reviewed?: Yes See final discharge diagnosis. Discussion & Recommendations 50 yo F with recent stent placement that presented with chest pain. Patient had normal cardiac enzymes and was seen by cardiology. Discussed the importance of tobacco cessation. Patient will have close f.u with PCP and Cardiology. Discharge Condition at discharge stable Instructions to patient/family Please see electronic discharge instructions given to patient. Discharge Medications Reviewed and agree with Discharge Medication list on patient's Discharge Instruction sheet Clinical Quality Measures AMI/AHF: ASA po Prior to arrival: No (given in ER) DVT/VTE Risk/Contraindication: Risk Factor Score Per Nursin RFS Level Per Nursing on Admit: 2=Moderate BLAKE GAVIRIA MD May 06, 2020 11:19
[2020-05-06] MEDS ORDERED: NITR0.4T42 SL (11:22)
--- NOTE | 2020-05-06 11:23 | Discharge Summary ---
Discharge [facility] Reconcile Patient Problems Problems Reviewed?: Yes Discharge Medications New, Converted or Re-Newed RX: Transmitted to Pharmacy New Medications: Nitroglycerin (Nitroglycerin) 0.4 Mg Tab.subl 0.4 MG SL NEEDED PRN for CHEST PAIN (ANGINA), #5 TAB Continued Medications: Acetaminophen (Tylenol Extra Strength) 500 Mg Tablet 1000 MG PO Q8H PRN for PAIN-MILD (1-4), TAB Aspirin (Aspirin EC) 81 Mg Tablet.dr 81 MG PO DAILY, TAB Atorvastatin Calcium (Atorvastatin Calcium) 80 Mg Tablet 80 MG PO HS, TAB Lisinopril (Lisinopril) 10 Mg Tablet 10 MG PO DAILY, TAB Metoprolol Succinate (Metoprolol Succinate) 25 Mg Tab.er.24h 25 MG PO DAILY, TAB Nicotine (Nicoderm Cq) 1 Each Patch.td24 1 EACH TD DAILY PRN for 60 Days, PATCH Sertraline HCl (Sertraline HCl) 100 Mg Tablet 100 MG PO DAILY, TAB LAST FILLED 07-28-2020 #90 Ticagrelor (Brilinta) 90 Mg Tablet 90 MG PO BID, TAB Discontinued Medications: Dextroamphetamine/Amphetamine (Dextroamp-Amphet ER 25 mg Cap) 25 Mg Cap.er.24h 25 MG PO DAILY, CAP Ibuprofen (Ibuprofen) 200 Mg Tablet 400 MG PO Q8H PRN for PAIN-MILD (1-4), TAB Patient Instructions Goal/Follow Up Appt: You have an appt with Dr Sheppard on May 13 @ 230 PM Patient Instructions: - Please review your medications as some were changed Return to [facility] For: chest pain shortness of breath Activity & Diet Discharge Diet: Cardiac Diet Activity as Tolerated: Yes Copy Copies To 1: NAHUM SHEPPARD MD, HOLLY R MD May 06, 2020 11:23
[2020-05-06 11:35] VITALS: BP 95/61
[2020-05-06 11:43] VITALS: BP 95/61
--- NOTE | 2020-05-06 11:43 | NUR ---
CHRIS FITCH demonstrates understanding of discharge instructions and accurately returns instructions upon questioning. Copy of Post-Discharge Instructions and Medication Discharge Instructions given to PT. CHRIS FITCH is able to manage continuing needs after discharge. Patients belongings returned to PT. Skin dry and intact; no breakdown noted. Patient discharged from 425-1 on at 1143. CHRIS FITCH left floor via WC, accompanied by STAFF.
== END 2020-05-06 11:43 | disposition home or self-care (01) ==
LOC: EDUNIT# 10:01 → ER FS 10:03 → 4TH 13:20
PROVIDERS: ADMIT Family Medicine; ATTEND Family Medicine
DX: I25.10 Atherosclerotic heart disease of native coronary artery without angina pectoris (principal); I10 Essential (primary) hypertension; E78.2 Mixed hyperlipidemia; R06.02 Shortness of breath; F32.9 Major depressive disorder, single episode, unspecified; F17.210 Nicotine dependence, cigarettes, uncomplicated; Z90.710 Acquired absence of both cervix and uterus; Z79.82 Long term (current) use of aspirin; Z79.899 Other long term (current) drug therapy; Z88.5 Allergy status to narcotic agent; Z95.5 Presence of coronary angioplasty implant and graft
CPT/HCPCS: 36415; 71045; 80053 ×2; 83880; 84443; 84484 ×2; 85025; 85027; 85610; 93005 ×2; 99284; G0378

== ENCOUNTER 2020-11-04 12:37 | Emergency (ER) | payer OTHER ==
[~2020-11-04 12:37] MED LIST changes: -LISI10TA2 PO; +LISI10TA25 PO; +NITR0.4T42 SL; +SERT-414 PO; -SERT100T8 PO
--- NOTE | 2020-11-04 13:03 | ED General ---
General Stated Complaint: NAZANIN ARM TINGLING; DIAPHORESIS; SOB; LETHARGY History of Present Illness Date Seen by Provider: Nov 04, 2020 Time Seen by Provider: 12:55 Initial Comments 50-year-old female presents with generalized malaise for the past 2 days. Complaining of numbness and tingling in the both arms intermittently. States he has had some sharp pains in her chest and yesterday took 2 nitroglycerin with relief, today she had a sharp pain lasting briefly she also took nitroglycerin before arriving at the ER with relief of her pain. Denies any recent illness, fever or chills, just states she does not feel well. Past medical history significant for coronary artery disease and having a non-STEMI KS last year and received 1 stent to [place] [facility] [employer] [place]. Since then she has had intermittent angina for which she takes nitroglycerin about once a week. Allergies and Home Medications Allergies Coded Allergies: meperidine (Verified Allergy, Unknown, 09/22/05) Home Medications Acetaminophen 500 Mg Tablet, 1,000 MG PO Q8H PRN for PAIN-MILD (1-4), (Reported) Aspirin 81 Mg Tablet.dr, 81 MG PO DAILY, (Reported) Atorvastatin Calcium 80 Mg Tablet, 80 MG PO HS, (Reported) Lisinopril 10 Mg Tablet, 10 MG PO DAILY, (Reported) Metoprolol Succinate 25 Mg Tab.er.24h, 25 MG PO DAILY, (Reported) Nicotine 1 Each Patch.td24, 1 EACH TD DAILY PRN Prescribed by: COLT BURNS on 02/20/20 0951 Nitroglycerin 0.4 Mg Tab.subl, 0.4 MG SL NEEDED PRN for CHEST PAIN (ANGINA) Prescribed by: BLAKE GAVIRIA on 05/06/20 1122 Sertraline HCl 100 Mg Tablet, 100 MG PO DAILY, (Reported) LAST FILLED 07-28-2020 #90 Ticagrelor 90 Mg Tablet, 90 MG PO BID, (Reported) Patient Home Medication List Home Medication List Reviewed: Yes Review of Systems Review of Systems Constitutional: No chills, No fever; malaise; No weakness EENTM: no symptoms reported Respiratory: No cough, No short of breath Cardiovascular: chest pain; No edema, No palpitations, No syncope Gastrointestinal: No abdominal pain, No nausea, No vomiting Musculoskeletal: No back pain, No joint pain, No muscle pain Skin: No change in color, No lesions, No lumps Past Kmnimil-Vzomhu-Tnasoj Hx Past Med/Social Hx: Reviewed Nursing Past Med/Soc Hx Patient Social History Alcohol Beverage of Choice: Beer Smoking Status: Current Everyday Smoker Type Used: Cigarettes 2nd Hand Smoke Exposure: Yes Recent Hopitalizations: No Immunizations Up To Date Tetanus Booster (TDap): Unknown Seasonal Allergies Seasonal Allergies: No Past Medical History Surgeries: Yes Section, Coronary Stent, Hysterectomy Respiratory: No Cardiac: Yes Hypertension 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 oz. [id number]; 25.71 BMI Method:Stated General Appearance: No Apparent Distress, WD/WN HEENT: PERRL/EOMI, Normal ENT Inspection Neck: Full Range of Motion, Non Tender, Supple Respiratory: Chest Non Tender, Lungs Clear, Normal Breath Sounds, No Accessory Muscle Use, No Respiratory Distress Cardiovascular: Regular Rate, Rhythm, No Edema, No JVD Gastrointestinal: Normal Bowel Sounds, No Pulsatile Mass, Non Tender, Soft Back: Normal Inspection, No CVA Tenderness Neurologic/Psychiatric: Alert, Oriented x3, No Motor/Sensory Deficits, Normal Mood/Affect Progress/Results/Core Measures Suspected Sepsis SIRS Temperature: Pulse: Respiratory Rate: Laboratory Tests 11/04/20 12:47: White Blood Count 5.7 Blood Pressure / Mean: Laboratory Tests 11/04/20 12:47: Creatinine 0.83, Platelet Count 161, Total Bilirubin 0.3 Results/Orders Lab Results Laboratory Tests Test 11/04/20 12:47 Range/Units White Blood Count 5.7 4.3-11.0 10^3/uL Red Blood Count 4.15 L 4.35-5.85 10^6/uL Hemoglobin 13.6 11.5-16.0 G/DL Hematocrit 40 35-52 % Mean Corpuscular Volume 95 80-99 FL Mean Corpuscular Hemoglobin 33 25-34 PG Mean Corpuscular Hemoglobin Concent 34 32-36 G/DL Red Cell Distribution Width 13.9 10.0-14.5 % Platelet Count 161 130-400 10^3/uL Mean Platelet Volume 11.8 H 7.4-10.4 FL Immature Granulocyte % (Auto) 0 % Neutrophils (%) (Auto) 68 42-75 % Lymphocytes (%) (Auto) 18 12-44 % Monocytes (%) (Auto) 13 H 0-12 % Eosinophils (%) (Auto) 0 0-10 % Basophils (%) (Auto) 1 0-10 % Neutrophils # (Auto) 3.9 1.8-7.8 X 10^3 Lymphocytes # (Auto) 1.0 1.0-4.0 X 10^3 Monocytes # (Auto) 0.7 0.0-1.0 X 10^3 Eosinophils # (Auto) 0.0 0.0-0.3 10^3/uL Basophils # (Auto) 0.0 0.0-0.1 10^3/uL Immature Granulocyte # (Auto) 0.0 0.0-0.1 10^3/uL Sodium Level 135 135-145 MMOL/L Potassium Level 3.8 3.6-5.0 MMOL/L Chloride Level 97 L 98-107 MMOL/L Carbon Dioxide Level 25 21-32 MMOL/L Anion Gap 13 5-14 MMOL/L Blood Urea Nitrogen 14 7-18 MG/DL Creatinine 0.83 0.60-1.30 MG/DL Estimat Glomerular Filtration Rate > 60 BUN/Creatinine Ratio 17 Glucose Level 108 H 70-105 MG/DL Calcium Level 9.3 8.5-10.1 MG/DL Corrected Calcium 8.5-10.1 MG/DL Total Bilirubin 0.3 0.1-1.0 MG/DL Aspartate Amino Transf (AST/SGOT) 29 5-34 U/L Alanine Aminotransferase (ALT/SGPT) 23 0-55 U/L Alkaline Phosphatase 93 40-136 U/L Troponin I < 0.30 <0.30 NG/ML Total Protein 7.2 6.4-8.2 GM/DL Albumin 4.6 H 3.2-4.5 GM/DL My Orders Orders - ROVENSTINEPETERSON DO Ed Iv/Invasive Line Start (11/04/20 13:03) Chest 1 View Ap/Pa Only (11/04/20 13:03) Ekg Tracing (11/04/20 13:03) Cbc With Automated Diff (3/30/21 13:03) Comprehensive Metabolic Panel (11/04/20 13:03) Troponin I Fs (11/04/20 13:03) Aspirin Chewable Tablet (Baby Aspirin Ch (11/04/20 13:15) Medications Given in ED Current Medications Medications Dose Ordered Sig/Parmjit Route Start Time Stop Time Status Last Admin Dose Admin Aspirin 324 mg ONCE ONCE PO 11/04/20 13:15 11/04/20 13:16 DC 11/04/20 13:21 324 MG Vital Signs/I&O Capillary Refill : ECG Initial ECG Impression Date: Nov 04, 2020 Initial ECG Impression Time: 12:55 Initial ECG Rate: 80 Initial ECG Rhythm: Normal Sinus Initial ECG Intervals: Normal Initial ECG Impression: Normal Departure Impression Primary Impression: Atypical chest pain Disposition: HOME, SELF-CARE Condition: Stable Departure-Patient Inst. Decision time for Depature: 13:31 Referrals: SELFNAHUM MD (PCP/Family) Primary Care Physician Patient Instructions: Chest Pain, Adult ED Add. Discharge Instructions: call Dr Lynch today to schedule a follow up appointment in 1 week. Return to the nearest ER if your symptoms progress or change. Continue your current medications as directed. Please stop smoking. Scripts Nitroglycerin (Nitroglycerin) 0.4 Mg Tab.subl 0.4 MG SL UD PRN for CHEST PAIN, #20 TAB Prov: PETERSON WISE DO 11/04/20 Work/School Note: Work Release Form Date Seen in the Emergency Department: Nov 04, 2020 Return to Work: Nov 05, 2020 Restrictions: No Restrictions PETERSON WISE DO Nov 04, 2020 13:03
[2020-11-04] MEDS ORDERED: ASPIRIN 81 MG CHEW (CHILDREN'S ASA) PO ONE (13:15)
[2020-11-04 13:16] LABS: HEMATOCRIT 40 % (35-52); HEMOGLOBIN 13.6 G/DL (11.5-16.0); MEAN CORPUSCULAR HEMOGLOBIN 33 PG (25-34); MEAN CORPUSCULAR VOLUME 95 FL (80-99); WHITE BLOOD COUNT 5.7 10^3/uL (4.3-11.0)
[2020-11-04 13:17] LABS: BASOPHILS % (AUTO) 1 % (0-10); EOSINOPHILS % (AUTO) 0 % (0-10); LYMPHOCYTES % (AUTO) 18 % (12-44); MEAN CORPUSCULAR HGB CONC 34 G/DL (32-36); MEAN PLATELET VOLUME 11.8 FL (7.4-10.4); MONOCYTES # (AUTO) 0.7 X 10^3 (0.0-1.0); MONOCYTES % (AUTO) 13 % (0-12); NEUTROPHILS # (AUTO) 3.9 X 10^3 (1.8-7.8); NEUTROPHILS % (AUTO) 68 % (42-75); PLATELET COUNT 161 10^3/uL (130-400)
[2020-11-04 13:25] LABS: ALANINE AMINOTRANSFERASE 23 U/L (0-55); ALKALINE PHOSPHATASE 93 U/L (40-136); BILIRUBIN,TOTAL 0.3 MG/DL (0.1-1.0); BUN/CREATININE RATIO 17; CALCIUM 9.3 MG/DL (8.5-10.1); CARBON DIOXIDE 25 MMOL/L (21-32); CHLORIDE 97 MMOL/L (98-107); CREATININE SERUM 0.83 MG/DL (0.60-1.30); GFR ESTIMATED > 60; GLUCOSE 108 MG/DL (70-105); POTASSIUM 3.8 MMOL/L (3.6-5.0); SODIUM 135 MMOL/L (135-145); TOTAL PROTEIN 7.2 GM/DL (6.4-8.2)
[2020-11-04 13:26] LABS: ALBUMIN 4.6 GM/DL (3.2-4.5)
[2020-11-04] MEDS ORDERED: NITR0.4T39 SL (13:39)
[2020-11-04 13:41] VITALS: BP 115/73
--- NOTE | 2020-11-04 13:48 | Diagnostic Imaging Report ---
INDICATION: Shortness of breath and weakness. TECHNIQUE/COMPARISON: A frontal chest was obtained at 1:06 PM and compared to 05/05/2020. FINDINGS: The heart and mediastinal silhouette are normal in appearance. The lungs are clear. There is no pneumothorax or pleural fluid. IMPRESSION: Negative chest. Dictated by: Dictated on workstation # [id number]
== END 2020-11-04 13:41 | disposition home or self-care (01) ==
LOC: EDUNIT# 12:37 → ER FS 12:39
DX: R07.89 Other chest pain (principal); I10 Essential (primary) hypertension; I25.2 Old myocardial infarction; F32.9 Major depressive disorder, single episode, unspecified; F17.210 Nicotine dependence, cigarettes, uncomplicated; Z88.5 Allergy status to narcotic agent; Z79.82 Long term (current) use of aspirin; Z79.899 Other long term (current) drug therapy; Z95.5 Presence of coronary angioplasty implant and graft
CPT/HCPCS: 36415; 71045; 80053; 84484; 85025; 93005

== ENCOUNTER → 2021-04-01 | Outpatient (CLI) | payer OTHER ==
[~2021-04-01] MED LIST changes: +NITR0.4T39 SL
== END ==
LOC: CARD 15:00
PROVIDERS: ATTEND Internal Medicine Cardiovascular Disease
DX: I10 Essential (primary) hypertension (principal); I25.10 Atherosclerotic heart disease of native coronary artery without angina pectoris
CPT/HCPCS: 93306

== ENCOUNTER 2021-05-11 10:07 | Emergency (ER) | payer OTHER ==
[~2021-05-11] VITALS: Ht 160 cm; Wt 65.0 kg
--- NOTE | 2021-05-11 10:14 | ED Chest Pain ---
General Stated Complaint: CHEST PAIN Source: patient Exam Limitations: no limitations History of Present Illness Date Seen by Provider: May 11, 2021 Time Seen by Provider: 10:10 Initial Comments 51yoF with PMH of CAD with stenting, HTN, HLD smoker coming in due to chest pain. Is not uncommon for her to have chest pain at least once a week since her stents in 2019. She takes nitro at least weekly. Pain started around 4 AM this morning. 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 Took nitro twice which took the edge off but pain is still present and that is why she presented here. Normally the nitro takes the pain away enough to not come to the emergency department. Saw Dr. Lynch couple months ago and discussed that she is having continued chest pain, and she has a stress test scheduled in roughly 9 days. The pain is in the center of her chest, radiates to the left, is more like a pressure-like pain, moderate to severe at times. Rest does help most of the time. Denies any fever, cough, shortness of breath, nausea, vomiting, diaphoresis, weakness, numbness, or any other concerns. Has never had any blood clots. No recent surgeries. Has been taking all of her medications as prescribed and did take 1 baby aspirin this morning as well as her Brilinta. Allergies and Home Medications Allergies Coded Allergies: meperidine (Verified Allergy, Unknown, 09/22/05) Patient Home Medication List Home Medication List Reviewed: Yes Acetaminophen (Tylenol Extra Strength) 500 Mg Tablet, 1,000 MG PO Q8H PRN for PAIN-MILD (1-4), (Reported) Entered as Reported by: AMY AYALA on 02/18/20 1549 Aspirin (Aspirin EC) 81 Mg Tablet.dr, 81 MG PO DAILY, (Reported) Entered as Reported by: AMY AYALA on 05/06/20 0850 Atorvastatin Calcium (Atorvastatin Calcium) 80 Mg Tablet, 80 MG PO HS, (Reported) Entered as Reported by: AMY AYALA on 05/06/20 0850 Lisinopril (Lisinopril) 10 Mg Tablet, 10 MG PO DAILY, (Reported) Entered as Reported by: AMY AYALA on 02/18/20 1549 Metoprolol Succinate (Metoprolol Succinate) 25 Mg Tab.er.24h, 25 MG PO DAILY, (Reported) Entered as Reported by: AMY AYALA on 05/06/20 0850 Nicotine (Nicoderm Cq) 1 Each Patch.td24, 1 EACH TD DAILY PRN Prescribed by: COLT BURNS on 02/20/20 0951 Nitroglycerin (Nitroglycerin) 0.4 Mg Tab.subl, 0.4 MG SL NEEDED PRN for CHEST PAIN (ANGINA) Prescribed by: BLAKE GAVIRIA on 05/06/20 1122 Nitroglycerin (Nitroglycerin) 0.4 Mg Tab.subl, 0.4 MG SL UD PRN for CHEST PAIN Prescribed by: PETERSON WISE on 11/04/20 1339 Sertraline HCl (Sertraline HCl) 100 Mg Tablet, 100 MG PO DAILY, (Reported) Entered as Reported by: AMY AYALA on 02/18/20 1549 Ticagrelor (Brilinta) 90 Mg Tablet, 90 MG PO BID, (Reported) Entered as Reported by: AMY AYALA on 05/06/20 0850 Review of Systems Review of Systems Constitutional: No chills, No fever; malaise, weakness EENTM: No Blurred Vision Respiratory: Denies Cough, Denies Shortness of Air Cardiovascular: Chest Pain Gastrointestinal: Denies Abdominal Pain, Denies Diarrhea, Denies Nausea, Denies Vomiting Genitourinary: Denies Burning Musculoskeletal: No joint pain Skin: no symptoms reported Psychiatric/Neurological: No Symptoms Reported Endocrine: No Symptoms Reported Hematologic/Lymphatic: No Symptoms Reported All Other Systems Reviewed Negative Unless Noted: Yes Past Vfttdpw-Gfmoik-Scbhhw Hx Patient Social History Tobacco Use?: Yes Alcohol Use?: Yes Immunizations Up To Date Tetanus Booster (TDap): Unknown Seasonal Allergies Seasonal Allergies: No Past Medical History Surgeries: Yes Section, Coronary Stent, Hysterectomy Respiratory: No Cardiac: Yes Hypertension 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 oz. 61.576167eb; 25.71 BMI Method:Stated General Appearance: No Apparent Distress, WD/WN HEENT: PERRL/EOMI, Normal ENT Inspection, Pharynx Normal Neck: Full Range of Motion, Normal Inspection, Non Tender, Supple Respiratory: Chest Non Tender, Lungs Clear, Normal Breath Sounds, No Accessory Muscle Use, No Respiratory Distress Cardiovascular: Regular Rate, Rhythm, No Edema, Normal Peripheral Pulses Gastrointestinal: Normal Bowel Sounds, Non Tender, Soft; No Distended, No Guarding Extremity: Normal Capillary Refill, Normal Inspection, Normal Range of Motion, Non Tender, No Calf Tenderness, No Pedal Edema Neurologic/Psychiatric: Alert, No Motor/Sensory Deficits, Normal Mood/Affect Skin: Normal Color, Warm/Dry Lymphatic: No Adenopathy Progress/Results/Core Measures Results/Orders Lab Results Laboratory Tests Test 05/11/21 10:14 05/11/21 12:00 Range/Units White Blood Count 6.2 4.3-11.0 10^3/uL Red Blood Count 3.99 3.80-5.11 10^6/uL Hemoglobin 13.0 11.5-16.0 g/dL Hematocrit 39 35-52 % Mean Corpuscular Volume 99 80-99 fL Mean Corpuscular Hemoglobin 33 25-34 pg Mean Corpuscular Hemoglobin Concent 33 32-36 g/dL Red Cell Distribution Width 14.0 10.0-14.5 % Platelet Count 202 130-400 10^3/uL Mean Platelet Volume 11.7 9.0-12.2 fL Immature Granulocyte % (Auto) 0 % Neutrophils (%) (Auto) 57 42-75 % Lymphocytes (%) (Auto) 33 12-44 % Monocytes (%) (Auto) 7 0-12 % Eosinophils (%) (Auto) 2 0-10 % Basophils (%) (Auto) 1 0-10 % Neutrophils # (Auto) 3.5 1.8-7.8 X 10^3 Lymphocytes # (Auto) 2.0 1.0-4.0 X 10^3 Monocytes # (Auto) 0.4 0.0-1.0 X 10^3 Eosinophils # (Auto) 0.1 0.0-0.3 10^3/uL Basophils # (Auto) 0.1 0.0-0.1 10^3/uL Immature Granulocyte # (Auto) 0.0 0.0-0.1 10^3/uL Prothrombin Time 12.2 12.2-14.7 SEC INR Comment 0.9 0.8-1.4 Activated Partial Thromboplast Time 26 24-35 SEC Sodium Level 141 135-145 MMOL/L Potassium Level 4.0 3.6-5.0 MMOL/L Chloride Level 103 98-107 MMOL/L Carbon Dioxide Level 28 21-32 MMOL/L Anion Gap 10 5-14 MMOL/L Blood Urea Nitrogen 16 7-18 MG/DL Creatinine 0.79 0.60-1.30 MG/DL Estimat Glomerular Filtration Rate 77 BUN/Creatinine Ratio 20 Glucose Level 104 70-105 MG/DL Calcium Level 9.1 8.5-10.1 MG/DL Corrected Calcium 8.5-10.1 MG/DL Magnesium Level 2.0 1.6-2.4 MG/DL Total Bilirubin 0.3 0.1-1.0 MG/DL Aspartate Amino Transf (AST/SGOT) 19 5-34 U/L Alanine Aminotransferase (ALT/SGPT) 16 0-55 U/L Alkaline Phosphatase 79 40-136 U/L Troponin I < 0.30 < 0.30 <0.30 NG/ML Pro-B-Type Natriuretic Peptide 348.7 H <75.0 PG/ML Total Protein 7.3 6.4-8.2 GM/DL Albumin 4.6 H 3.2-4.5 GM/DL My Orders Orders - CAITLYN RIVERA MD Cbc With Automated Diff (05/11/21 10:27) Magnesium (05/11/21 10:27) Chest 1 View Ap/Pa Only (05/11/21 10:27) Ekg Tracing (05/11/21 10:27) Comprehensive Metabolic Panel (05/11/21 10:27) Protime With Inr (05/11/21 10:27) Partial Thromboplastin Time (05/11/21 10:27) O2 (05/11/21 10:27) Monitor-Rhythm Ecg Trace Only (05/11/21 10:27) Aspirin Chewable Tablet (Baby Aspirin Ch (05/11/21 10:30) Ed Iv/Invasive Line Start (05/11/21 10:27) Troponin I Fs (05/11/21 10:27) Probnp Fs (05/11/21 10:27) Nitroglycerin Ointment (Nitrobid Ointme (05/11/21 10:30) Troponin I Fs (05/11/21 12:20) Aspirin Chewable Tablet (Baby Aspirin Ch (05/11/21 10:30) Nitroglycerin Ointment (Nitrobid Ointme (05/11/21 10:31) Medications Given in ED Current Medications Medications Dose Ordered Sig/Parmjit Route Start Time Stop Time Status Last Admin Dose Admin Aspirin 81 mg STK-MED ONCE .ROUTE 05/11/21 10:30 05/11/21 10:32 DC 05/11/21 10:32 81 MG Aspirin 243 mg ONCE ONCE PO 05/11/21 10:30 05/11/21 10:31 DC 05/11/21 10:34 243 MG Nitroglycerin 1 inch ONCE ONCE TOP 05/11/21 10:30 05/11/21 10:31 DC 05/11/21 10:32 1 INCH Vital Signs/I&O 05/11/21 10:09 Temp 36.0 Pulse 54 Resp 18 B/P (MAP) 164/84 (110) Pulse Ox 100 O2 Delivery Room Air Progress Progress Note : Progress Note 51-year-old female with above history coming in due to chest pain. ABCs were intact and vitals were stable on presentation. Physical exam reassuring with no focal abnormalities. EKG sinus with a rate of 58 and no significant ischemic changes. Basic labs including cardiac biomarkers ordered as well as chest x- ray. She was given Nitropaste as well as aspirin to get her up to a full dose of aspirin today. In regards to her differential diagnosis, ACS is on the differential versus PE versus dissection versus GERD versus some other etiology. She is low risk for PE per [place] criteria and is technically PERC negative. Story does not sound as consistent with dissection given the intermittent nature of it and in the past improves with nitro. Labs significant for troponin negative x2. On reassessment her pain has significantly improved and she is feeling better. I discussed she should call Dr. Lynch today for follow-up and potentially move up her stress test. She was then discharged home in stable condition with strict return precautions Initial ECG Impression Date: May 11, 2021 Initial ECG Impression Time: 10:08 Initial ECG Rate: 58 Initial ECG Rhythm: Normal Sinus Comment Narrow QRS, normal axis, subtle ST depressions in 2, 3, aVF, appears almost identical to previous EKG in October of this year and April 2020. Diagnostic Imaging Diagonstic Imaging: Xray Plain Films/CT/US/NM/MRI: chest Comments X-ray chest ordered and interpreted by me showing no obvious pneumonia, pneumothorax, no pleural effusion, cardiac silhouette appears normal. [facility] [place], [place] NAME: CHRIS FITCH [facility] REC#: [id number] PT STATUS: REG ER : 1970 PHYSICIAN: CAITLYN RIVERA MD ADMIT DATE: 05/11/21/ER FS Draft Date of Exam:05/11/21 CHEST 1 VIEW AP/PA ONLY INDICATION: Chest pain Portable chest 10:19 AM Heart size and pulmonary vascularity are normal. Lungs are clear. There are no effusions or pneumothoraces. IMPRESSION: Negative chest Dictated on workstation # [id number] Dict: 05/11/21 1037 Trans: 05/11/21 1039 CVB [id number] Interpreted by: ASHUTOSH NEIL MD Electronically signed by: Departure Impression Primary Impression: Chest pain Qualified Codes: R07.9 - Chest pain, unspecified Additional Impression: CAD (coronary artery disease) Qualified Codes: I25.10 - Atherosclerotic heart disease of [place] coronary artery without angina pectoris Disposition: HOME, SELF-CARE Condition: Stable Departure-Patient Inst. Decision time for Depature: 12:59 Referrals: NAHUM WRIGHT MD (PCP/Family) Primary Care Physician Patient Instructions: Chest Pain Add. Discharge Instructions: You were seen in the emergency department for chest pain. Your labs do not show that you have had a heart attack. This can always change moment to moment. If your pain worsens or you have any concerns then please come back to the ER. Please call Dr. Lynch today and schedule your appointment for sooner if can. Work/School Note: Work Release Form Date Seen in the Emergency Department: May 11, 2021 Return to Work: May 12, 2021 Restrictions: No Restrictions CAITLYN RIVERA MD May 11, 2021 10:14
[2021-05-11] MEDS ORDERED: ASPIRIN 81 MG CHEW (CHILDREN'S ASA) ONE (10:30)
[2021-05-11] MEDS ORDERED: NITROGLYCERIN 2% OINT 1 GM UNIT DOSE PACKET TOP ONE (10:30)
[2021-05-11] MEDS ORDERED: ASPIRIN 81 MG CHEW (CHILDREN'S ASA) PO ONE (10:30)
[2021-05-11] MEDS ORDERED: NITROGLYCERIN 2% OINT 1 GM UNIT DOSE PACKET ONE (10:31)
--- NOTE | 2021-05-11 10:40 | Diagnostic Imaging Report ---
INDICATION: Chest pain Portable chest 10:19 AM Heart size and pulmonary vascularity are normal. Lungs are clear. There are no effusions or pneumothoraces. IMPRESSION: Negative chest Dictated by: Dictated on workstation # [id number]
[2021-05-11 10:52] LABS: BASOPHILS # (AUTO) 0.1 10^3/uL (0.0-0.1); BASOPHILS % (AUTO) 1 % (0-10); EOSINOPHILS # (AUTO) 0.1 10^3/uL (0.0-0.3); EOSINOPHILS % (AUTO) 2 % (0-10); HEMATOCRIT 39 % (35-52); LYMPHOCYTES % (AUTO) 33 % (12-44); MEAN CORPUSCULAR HEMOGLOBIN 33 pg (25-34); MEAN CORPUSCULAR HGB CONC 33 g/dL (32-36); MEAN CORPUSCULAR VOLUME 99 fL (80-99); MEAN PLATELET VOLUME 11.7 fL (9.0-12.2); MONOCYTES # (AUTO) 0.4 X 10^3 (0.0-1.0); MONOCYTES % (AUTO) 7 % (0-12); NEUTROPHILS # (AUTO) 3.5 X 10^3 (1.8-7.8); NEUTROPHILS % (AUTO) 57 % (42-75); PLATELET COUNT 202 10^3/uL (130-400); WHITE BLOOD COUNT 6.2 10^3/uL (4.3-11.0)
[2021-05-11 10:57] LABS: INR 0.9 (0.8-1.4); PROTHROMBIN TIME PATIENT 12.2 SEC (12.2-14.7)
[2021-05-11 10:58] LABS: ALANINE AMINOTRANSFERASE 16 U/L (0-55); ALKALINE PHOSPHATASE 79 U/L (40-136); BILIRUBIN,TOTAL 0.3 MG/DL (0.1-1.0); BUN/CREATININE RATIO 20; CALCIUM 9.1 MG/DL (8.5-10.1); CARBON DIOXIDE 28 MMOL/L (21-32); CHLORIDE 103 MMOL/L (98-107); CREATININE SERUM 0.79 MG/DL (0.60-1.30); GFR ESTIMATED 77; GLUCOSE 104 MG/DL (70-105); SODIUM 141 MMOL/L (135-145)
[2021-05-11 10:59] LABS: ALBUMIN 4.6 GM/DL (3.2-4.5); TOTAL PROTEIN 7.3 GM/DL (6.4-8.2)
[2021-05-11 13:04] VITALS: BP 124/68
== END 2021-05-11 13:05 | disposition home or self-care (01) ==
LOC: EDUNIT# 10:09 → ER FS 10:10
DX: I25.10 Atherosclerotic heart disease of native coronary artery without angina pectoris (principal); I10 Essential (primary) hypertension; F32.9 Major depressive disorder, single episode, unspecified; Z72.0 Tobacco use; Z79.899 Other long term (current) drug therapy; Z79.82 Long term (current) use of aspirin
CPT/HCPCS: 36415; 71045; 80053; 83735; 83880; 84484; 85025; 85610; 85730; 93005; 93041

== ENCOUNTER → 2021-05-20 | Outpatient (CLI) | payer OTHER ==
[~2021-05-20] MED LIST changes: +CATHETER FLUSH 10 ML SYR IV PRN; +REGADENOSON 0.4 MG/5 ML SYR (LEXISCAN) IV ONE
[2021-05-20 08:59] VITALS: BP 118/53
--- NOTE | 2021-05-20 11:26 | Cardiology Stress Test Report ---
Stress Test Report Date of Procedure/Referring: Date of Procedure: May 20, 2021 PCP Simi Lynch MD Admitting Physician SelfClark MD Indications: CP Baseline Heart Rate: 57 Baseline Blood Pressure: Blood Pressure Systolic: 118 Blood Pressure Diastolic: 53 Baseline Vitals Vital Signs Date Time Temp Pulse Resp B/P (MAP) Pulse Ox O2 Delivery O2 Flow Rate FiO2 05/20/21 08:59 52 18 118/53 (74) 97 Room Air Baseline EKG: Baseline EKG: NSR Summary After explaining the procedure to the patient, she signed a consent and then brought to the stress nuclear laboratory. Patient received 0.4 mg Lexiscan for stress test, ECG, heart rate and blood pressure were monitored continuously. Resting and stress dose of radio tracer were injected, imaging was acquired and reviewed in short axis, horizontal long axis and vertical long axis views. TID: 0.97 SSS: 0 SDS: 0 EF: 59 1. Patient tolerated Lexiscan well 2. Breast attenuation with mild decrease uptake involving the anteroapical segment which is fixed, probably due to breast attenuation, there is no significant ischemia or infarction on SPECT images 3. Normal left ventricular size and systolic function, ejection fraction 59% SIMI LYNCH MD May 20, 2021 11:26
== END ==
LOC: CARD 07:30
PROVIDERS: ATTEND Internal Medicine Cardiovascular Disease
DX: R07.2 Precordial pain (principal); I25.10 Atherosclerotic heart disease of native coronary artery without angina pectoris; I10 Essential (primary) hypertension
CPT/HCPCS: 78452; 93017; A9502

== ENCOUNTER 2021-07-01 13:00 | Day surgery (SDC) | payer OTHER ==
[~2021-07-01] VITALS: Ht 154 cm; Wt 60.0 kg
[2021-07-01 11:32] VITALS: BP 148/74
[2021-07-01 11:37] LABS: HEMATOCRIT 43 % (35-52); HEMOGLOBIN 14.4 g/dL (11.5-16.0); MEAN CORPUSCULAR HEMOGLOBIN 33 pg (25-34); MEAN CORPUSCULAR HGB CONC 33 g/dL (32-36); MEAN CORPUSCULAR VOLUME 98 fL (80-99); MEAN PLATELET VOLUME 11.3 fL (9.0-12.2); PLATELET COUNT 225 10^3/uL (130-400); WHITE BLOOD COUNT 6.3 10^3/uL (4.3-11.0)
[2021-07-01 11:51] LABS: INR 0.9 (0.8-1.4); PROTHROMBIN TIME PATIENT 12.8 SEC (12.2-14.7)
--- NOTE | 2021-07-01 11:52 | Diagnostic Imaging Report ---
INDICATION: Chest pain, pre heart catheterization. EXAMINATION: Chest 07/01/2021 COMPARISON: 05/11/2021 FINDINGS: The cardiomediastinal silhouette is unremarkable. The pulmonary vasculature is within normal limits. The lungs and pleural spaces are clear. IMPRESSION: No evidence of an acute cardiopulmonary process. Dictated by: Dictated on workstation # [id number]
[2021-07-01 11:55] LABS: ALANINE AMINOTRANSFERASE 16 U/L (0-55); ALBUMIN 4.6 GM/DL (3.2-4.5); ALKALINE PHOSPHATASE 77 U/L (40-136); BILIRUBIN,TOTAL 0.7 MG/DL (0.1-1.0); BUN/CREATININE RATIO 25; CARBON DIOXIDE 27 MMOL/L (21-32); CHLORIDE 101 MMOL/L (98-107); CHOLESTEROL 181 MG/DL (< 200); CREATININE SERUM 0.73 MG/DL (0.60-1.30); GFR ESTIMATED 85; GLUCOSE 86 MG/DL (70-105); HDL CHOLESTEROL 72 MG/DL (40-60); POTASSIUM 3.9 MMOL/L (3.6-5.0); SODIUM 138 MMOL/L (135-145); TOTAL PROTEIN 7.9 GM/DL (6.4-8.2); TRIGLYCERIDES 62 MG/DL (<150); VLDL CHOLESTEROL 12 MG/DL (5-40)
[~2021-07-01 13:00] MED LIST changes: -CATHETER FLUSH 10 ML SYR IV PRN; +HEParin (CATH LAB) 2,000 ML IV ONE; +HEParin 1000 UNIT/ML (10ML VIAL) FOR BOLUS ONE; +LIDOCAINE 1% INJ 20 ML 20 ML VIAL ONE; +MIDAZOLAM 5 MG/5 ML (VERSED) VIAL ONE; +NITRO DRIP 25000 MCG/D5W 250 ML IV ONE; +NS IV 1000 ML 1,000 ML IV SCH; +NS IV 1000 ML 1,000 ML ONE; -REGADENOSON 0.4 MG/5 ML SYR (LEXISCAN) IV ONE; +VERAPAMIL 5 MG/2 ML (CALAN) VIAL IV ONE; +fentaNYL INJ 100 MCG/2 ML AMP ONE
[2021-07-01] MEDS ORDERED: TICAGRELOR 90 MG TABLET (BRILINTA) PO ONE (13:05)
[2021-07-01] MEDS ORDERED: ASPIRIN 325 MG (5 GR) TABLET ONE (13:05)
--- NOTE | 2021-07-01 13:10 | Discharge Inst-Post CATH ---
Discharge Inst-CATH/EP Problems Reviewed?: Yes Post Cardiac Cath/EP D/C Inst Follow Up/Plan Appointment with Dr. Lynch's office in 2 to 4 weeks <b>CARDIAC CATH/EP PROCEDURE DISCHARGE INSTRUCTIONS</b> ACTIVITY * Go Home directly and rest. * Limit activity of the leg (or wrist if it was used) for 7 days including aer obics, swimming, jogging, bicycling, etc. * Restrict stair-climbing for 7 days if possible, if not, climb up with your non-cath leg, then bring together on the same step. * Avoid lifting, pushing, pulling or excessive movement of the affected extremi ty for 7 days. * Customary sexual activity may be resumed after 2 days-use caution not to use a position that strains or causes pain to the affected extremity. * No driving for 24 hours. * NO SMOKING. * Avoid straining for bowel movements for 7 days. * Gentle walking on level ground is allowed. * Returning to work will depend on the type of procedure and the results. Your doctor will discuss this with you. CALL YOUR DOCTOR FOR ANY OF THE FOLLOWING: *If bleeding from the puncture site occurs- Apply gentle pressure to site with clean cloth and call your doctor or EMS. * If a knot or lump forms under the skin, increases in size, or causes pain. * If bruising appears to be worsening or moving further down your leg instead of disappearing. * Temperature above 101 F. CARE OF YOUR GROIN INCISION; * Bruising or purple discoloration of the skin near the puncture site is common. * You may shower only, no bathtub bathing for 5 days. Be careful to avoid slipping as your leg may feel stiff. * If a closure device was used on your femoral artery, please see the attached guide regarding care of the device and your leg. * Leave dressing on FOR 24 hours. CARE OF YOUR WRIST INCISION; * Bruising or purple discoloration of the skin near the puncture site is common. * You may shower. * DO NOT submerge wrist. * Leave dressing on FOR 24 hours. SIMI LYNCH MD Jul 01, 2021 13:10
--- NOTE | 2021-07-01 13:14 | Cardiac Cath Report ---
Cardiac Cath Report Physician (s)/Social Service Coordinator (s) Physician SIMI HENRIQUEZ MD Pre-Procedure Diagnosis Pre-Procedure Diagnosis: Coronary artery disease Post-Procedure Note Procedure Start Date: Jul 01, 2021 Procedure Start Time: 13:10 Name of Procedure: Left heart catheterization Stenting to the diagonal artery of the LAD Findings/Procedure Note PROCEDURE NOTE: 51-year-old lady with history of coronary artery disease, stent to the right coronary artery, had an abnormal stress test, scheduled for cardiac catheterization possible PTCA. After explaining the procedure to the patient, all pros and cons were explained, all questions were answered. The patient signed the consent and then she was placed on the cardiac catheterization laboratory. Groin was prepped SL fashion local anesthesia was used. Sheath placed in the right radial artery, [place] catheter was advanced to the left ventricular cavity, pressure was measured, pullback LV to aorta then engaged the right and left coronary system and angiogram was done. Patient has severe stenosis at the proximal first diagonal artery, given additional 3000 units of heparin, attempt to engage with EBU has failed, I used JL 3.5 and was able to engage the left coronary system, BMW wire was advanced and parked in the distal diagonal artery then primary stenting using skypoint stent 2.25 x 12 mm expanded to 2.35 mm with excellent results At the end of the procedure the sheath was removed. Closure device FINDINGS: Hemodynamics LV 99/8, end-diastolic pressure of 8 Aorta 96/62 mean of 78 ANATOMY: Left Main is free of obstructive disease Left Anterior Descending has mild disease, the first diagonal artery has severe proximal stenosis successful primary stenting using skypoint stent 2.25 x 12 mm expanded to 2.35 mm with excellent results Left Circumflex has mild disease nonobstructive disease Right Coronary Artery has patent stent in the midportion, mild to moderate disease beyond the stent nonobstructive disease LV Gram was not done, pressure was measured CONCLUSION: 1. Severe stenosis at the proximal first diagonal artery successful deployment of michael point stent 2.25 x 12 mm expanded to 2.35 mm with excellent results 2. Patent stent in the mid right coronary artery with mild to moderate stenosis beyond the stent area 3. Otherwise mild coronary artery disease 4. Normal left ventricular end-diastolic pressure DISCUSSION AND RECOMMENDATION: We will continue on aspirin and Brilinta and continue to monitor lipids and blood pressure Anesthesia Type: Conscious Sedation Estimated blood loss (mL): 25 ml Contrast Amount: 68 ml Total Radiation Dose: 237 mGy Post-Procedure Diagnosis Post-operative diagnosis: Chest pain Coronary artery disease Hypertension Hyperlipidemia SIMI HENRIQUEZ MD Jul 01, 2021 13:14
[2021-07-01] MEDS ORDERED: NS IV 1000 ML 1,000 ML IV SCH (13:15)
--- NOTE | 2021-07-01 13:18 | Conscious Sedation/ASA ---
Conscious Sedation Pre-Proced Time 12:00 ASA Score 3 For ASA 3 and 4: Consider anesthesia and medical clearance. Also, for patients with a history of failed moderate sedation consider anesthesia. Airway Lungs Heart ASA score ASA 1: a normal healthy patient ASA 2: a patient with a mild systemic disease (mid diabetes, controlled hypertension, obesity x ASA 3: a patient with a severe systemic disease that limits activity (angina, COPD, prior Myocardial infarction) ASA 4: a patient with an incapacitating disease that is a constant threat to life (CHF, renal failure) ASA 5: a moribund patient not expected to survive 24 hrs. (ruptured aneurysm) ASA 6: a declared brain- patient whose organs are being harvested. For emergent operations, add the letter E after the classification Mallampati Classification Grade 3 Sedation Plan Analgesia, Amnesia, Plan communicated to team members, Discussed options with patient/fam, Discussed risks with patient/fam The patient is an appropriate candidate to undergo the planned procedure, sedation, and anesthesia. The patient immediately re-assessed prior to indication. SIMI HENRIQUEZ MD Jul 01, 2021 13:18
[2021-07-01 13:32] VITALS: BP 131/60
[2021-07-01 16:13] VITALS: BP 114/51
[2021-07-01] MEDS ORDERED: TICAGRELOR 90 MG TABLET (BRILINTA) PO SCH (21:00)
[2021-07-02] MEDS ORDERED: ASPIRIN E.C. 81 MG (ECOTRIN) TAB PO SCH (09:00)
== END 2021-07-01 16:35 | disposition home or self-care (01) ==
LOC: CSD 13:21 → CATH 16:35
PROVIDERS: ATTEND Internal Medicine Cardiovascular Disease
DX: I25.10 Atherosclerotic heart disease of native coronary artery without angina pectoris (principal); I10 Essential (primary) hypertension; E78.2 Mixed hyperlipidemia; Z79.82 Long term (current) use of aspirin; Z79.899 Other long term (current) drug therapy; Z87.891 Personal history of nicotine dependence; Z86.16 Personal history of COVID-19; Z83.3 Family history of diabetes mellitus
CPT/HCPCS: 71045; 80053; 80061; 85027; 85347; 85610; 85730; 87081; 93458; C1769; C1874; C1887; C1894; C9600; 36415

== ENCOUNTER 2021-07-14 16:40 | Emergency (ER) | payer OTHER ==
[~2021-07-14] VITALS: Ht 154 cm; Wt 60.0 kg
[~2021-07-14 16:40] MED LIST changes: -HEParin (CATH LAB) 2,000 ML IV ONE; -HEParin 1000 UNIT/ML (10ML VIAL) FOR BOLUS ONE; -LIDOCAINE 1% INJ 20 ML 20 ML VIAL ONE; -MIDAZOLAM 5 MG/5 ML (VERSED) VIAL ONE; -NITRO DRIP 25000 MCG/D5W 250 ML IV ONE; -NS IV 1000 ML 1,000 ML IV SCH; -NS IV 1000 ML 1,000 ML ONE; -VERAPAMIL 5 MG/2 ML (CALAN) VIAL IV ONE; -fentaNYL INJ 100 MCG/2 ML AMP ONE
--- NOTE | 2021-07-14 16:55 | ED Cardiac General ---
History of Present Illness General Chief Complaint: Chest Pain Stated Complaint: CHEST PAIN Source: patient History of Present Illness Date Seen by Provider: Jul 14, 2021 Time Seen by Provider: 16:00 Initial Comments Patient is a 51-year-old female with history of CAD with recent heart cath on 07/03 who presents with intermittent left-sided chest pain since the procedure. Pain is worse with palpation, movement and deep breathing. It is not relieved with nitroglycerin. Patient denies shortness of breath nausea sweats or pain with exertion. No leg pain or swelling. No other acute symptoms or complaints. Timing/Duration: 1-3 hours Severity: moderate Activities at Onset: other Prior CP/Workup: other Modifying Factors: improves with other Allergies and Home Medications Allergies Coded Allergies: meperidine (Verified Allergy, Unknown, 09/22/05) Patient Home Medication List Home Medication List Reviewed: Yes Aspirin (Aspirin EC) 81 Mg Tablet.dr, 81 MG PO DAILY, (Reported) Entered as Reported by: AMY AYALA on 05/06/20 0850 Atorvastatin Calcium (Atorvastatin Calcium) 80 Mg Tablet, 80 MG PO HS, (Reported) Entered as Reported by: AMY AYALA on 05/06/20 0850 Lisinopril (Lisinopril) 10 Mg Tablet, 10 MG PO DAILY, (Reported) Entered as Reported by: AMY AYALA on 02/18/20 1549 Metoprolol Succinate (Metoprolol Succinate) 25 Mg Tab.er.24h, 25 MG PO DAILY, (Reported) Entered as Reported by: AMY AYALA on 05/06/20 0850 Nitroglycerin (Nitroglycerin) 0.4 Mg Tab.subl, 0.4 MG SL NEEDED PRN for CHEST PAIN (ANGINA) Prescribed by: BLAKE GAVIRIA on 05/06/20 1122 Sertraline HCl (Sertraline HCl) 100 Mg Tablet, 100 MG PO DAILY, (Reported) Entered as Reported by: AMY AYALA on 02/18/20 1549 Ticagrelor (Brilinta) 90 Mg Tablet, 90 MG PO BID, (Reported) Entered as Reported by: AMY AYALA on 05/06/20 0850 Review of Systems Review of Systems Constitutional: see HPI EENTM: See HPI Respiratory: See HPI Cardiovascular: See HPI Genitourinary: See HPI Musculoskeletal: see HPI Skin: see HPI Psychiatric/Neurological: See HPI Endocrine: See HPI Hematologic/Lymphatic: See HPI All Other Systems Reviewed Negative Unless Noted: Yes Past Niewkem-Bhtbiz-Jwetkz Hx Patient Social History Tobacco Use?: Yes Immunizations Up To Date Tetanus Booster (TDap): Unknown Seasonal Allergies Seasonal Allergies: No Past Medical History Surgeries: Yes Section, Coronary Stent, Hysterectomy Respiratory: No Cardiac: Yes Coronary Artery Disease, Hypertension 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 oz. 61.050999zp; 25.29 BMI Method:Stated General Appearance: No Apparent Distress, WD/WN, Anxious HEENT: PERRL/EOMI, Normal ENT Inspection, Pharynx Normal Neck: Non Tender Respiratory: Chest Non Tender, Lungs Clear Cardiovascular: Regular Rate, Rhythm, No Edema Gastrointestinal: Non Tender, Soft Extremity: Non Tender, No Calf Tenderness Neurologic/Psychiatric: Alert, Oriented x3 Focused Exam Sepsis Stage: Ruled Out Progress/Results/Core Measures Results/Orders Lab Results Laboratory Tests Test 07/14/21 16:49 Range/Units White Blood Count 6.7 4.3-11.0 10^3/uL Red Blood Count 3.88 3.80-5.11 10^6/uL Hemoglobin 12.4 11.5-16.0 g/dL Hematocrit 37 35-52 % Mean Corpuscular Volume 96 80-99 fL Mean Corpuscular Hemoglobin 32 25-34 pg Mean Corpuscular Hemoglobin Concent 33 32-36 g/dL Red Cell Distribution Width 13.3 10.0-14.5 % Platelet Count 221 130-400 10^3/uL Mean Platelet Volume 11.4 9.0-12.2 fL Immature Granulocyte % (Auto) 0 % Neutrophils (%) (Auto) 52 42-75 % Lymphocytes (%) (Auto) 37 12-44 % Monocytes (%) (Auto) 8 0-12 % Eosinophils (%) (Auto) 2 0-10 % Basophils (%) (Auto) 1 0-10 % Neutrophils # (Auto) 3.5 1.8-7.8 X 10^3 Lymphocytes # (Auto) 2.5 1.0-4.0 X 10^3 Monocytes # (Auto) 0.5 0.0-1.0 X 10^3 Eosinophils # (Auto) 0.1 0.0-0.3 10^3/uL Basophils # (Auto) 0.1 0.0-0.1 10^3/uL Immature Granulocyte # (Auto) 0.0 0.0-0.1 10^3/uL D-Dimer 0.34 0.00-0.49 UG/ML Sodium Level 140 135-145 MMOL/L Potassium Level 3.9 3.6-5.0 MMOL/L Chloride Level 103 98-107 MMOL/L Carbon Dioxide Level 27 21-32 MMOL/L Anion Gap 10 5-14 MMOL/L Blood Urea Nitrogen 17 7-18 MG/DL Creatinine 0.77 0.60-1.30 MG/DL Estimat Glomerular Filtration Rate 80 BUN/Creatinine Ratio 22 Glucose Level 90 70-105 MG/DL Calcium Level 9.4 8.5-10.1 MG/DL Corrected Calcium 8.5-10.1 MG/DL Total Bilirubin 0.3 0.1-1.0 MG/DL Aspartate Amino Transf (AST/SGOT) 18 5-34 U/L Alanine Aminotransferase (ALT/SGPT) 15 0-55 U/L Alkaline Phosphatase 76 40-136 U/L Troponin I < 0.30 <0.30 NG/ML Total Protein 7.6 6.4-8.2 GM/DL Albumin 4.7 H 3.2-4.5 GM/DL My Orders Orders - ZANE SHARMA DO Cbc With Automated Diff (07/14/21 16:53) Comprehensive Metabolic Panel (07/14/21 16:53) Troponin I Fs (07/14/21 16:53) Chest 1 View Ap/Pa Only (07/14/21 16:53) Ekg-Prn For Chest Pain Or Rhyt (07/14/21 16:53) Ketorolac Injection (Toradol Injection) (07/14/21 17:00) Lorazepam Injection (Ativan Injection) (07/14/21 17:00) Fibrin Degradation Products (07/14/21 16:55) Ekg Tracing (07/14/21 17:09) Medications Given in ED Current Medications Medications Dose Ordered Sig/Parmjit Route Start Time Stop Time Status Last Admin Dose Admin Ketorolac Tromethamine 30 mg ONCE ONCE IVP 07/14/21 17:00 07/14/21 17:01 DC 07/14/21 17:07 30 MG Lorazepam 0.5 mg ONCE PRN IVP 07/14/21 17:00 07/14/21 17:07 0.5 MG Vital Signs/I&O 07/14/21 16:40 Temp 36.1 Pulse 68 Resp 16 B/P (MAP) 130/84 (99) Pulse Ox 97 Departure Communication (Admissions) Family Conversation EKG: Diffuse ST depression. No acute ST segment elevation CXR: No acute cardiopulmonary disease Labs EKG imaging reviewed. Persistent daily chest pain with anxiety component for the past 12 days. Troponin negative. No relief with nitroglycerin x2 prior to ED arrival. Relief with Toradol and Ativan in the ED. Recommendations are supportive care with PCP follow-up for further management of musculoskeletal pain and cardiology follow-up as scheduled. Return precautions reviewed. Patient verbalizes understanding agreement discharge instructions prior to departure. Impression Primary Impression: Chest wall pain Additional Impression: CAD (coronary artery disease) Disposition: HOME, SELF-CARE Condition: Stable Departure-Patient Inst. Decision time for Depature: 17:53 Referrals: NAHUM WRIGHT MD (PCP/Family) Primary Care Physician Patient Instructions: Chest Pain Add. Discharge Instructions: You were evaluated in the emergency department for chest pain. EKG lab and imaging were performed and are reassuring. The exact cause of your symptoms cannot be determined. Please go home and rest and take naproxen or ibuprofen for pain. Limit physical activity until cleared cleared by your PCP and/or bpm developer. Return to the ED if new or worsening symptoms All discharge instructions reviewed with patient and/or family. Voiced underst anding. Work/School Note: Work Release Form Date Seen in the Emergency Department: D 2020 Return to Work: Jul 16, 2021 Restrictions: No Restrictions EDITHZANE MILLER Jul 14, 2021 16:55
[2021-07-14] MEDS ORDERED: KETOROLAC 30 MG/ML VIAL IVP ONE (17:00)
[2021-07-14] MEDS ORDERED: LORazepam INJ 2 MG/ML (ATIVAN) VIAL IVP PRN (17:00)
[2021-07-14 17:07] LABS: HEMOGLOBIN 12.4 g/dL (11.5-16.0); MEAN CORPUSCULAR HEMOGLOBIN 32 pg (25-34); WHITE BLOOD COUNT 6.7 10^3/uL (4.3-11.0)
[2021-07-14 17:08] LABS: HEMATOCRIT 37 % (35-52); LYMPHOCYTES % (AUTO) 37 % (12-44); MEAN CORPUSCULAR HGB CONC 33 g/dL (32-36); MEAN CORPUSCULAR VOLUME 96 fL (80-99); MEAN PLATELET VOLUME 11.4 fL (9.0-12.2); NEUTROPHILS % (AUTO) 52 % (42-75); PLATELET COUNT 221 10^3/uL (130-400)
[2021-07-14 17:09] LABS: BASOPHILS # (AUTO) 0.1 10^3/uL (0.0-0.1); BASOPHILS % (AUTO) 1 % (0-10); EOSINOPHILS # (AUTO) 0.1 10^3/uL (0.0-0.3); EOSINOPHILS % (AUTO) 2 % (0-10); LYMPHOCYTES # (AUTO) 2.5 X 10^3 (1.0-4.0); MONOCYTES # (AUTO) 0.5 X 10^3 (0.0-1.0); MONOCYTES % (AUTO) 8 % (0-12); NEUTROPHILS # (AUTO) 3.5 X 10^3 (1.8-7.8)
--- NOTE | 2021-07-14 17:12 | Diagnostic Imaging Report ---
INDICATION: Chest pain. TIME OF EXAM: 4:58 PM CORRELATION is made with prior chest from 07/01/2021. The heart size is normal. The pulmonary vascularity is unremarkable. The lungs are clear. No infiltrate, effusion or pneumothorax is detected. IMPRESSION: No acute cardiopulmonary process is detected. Dictated by: Dictated on workstation # [id number]
[2021-07-14 17:29] LABS: ALANINE AMINOTRANSFERASE 15 U/L (0-55); ALKALINE PHOSPHATASE 76 U/L (40-136); BILIRUBIN,TOTAL 0.3 MG/DL (0.1-1.0); BUN/CREATININE RATIO 22; CALCIUM 9.4 MG/DL (8.5-10.1); CARBON DIOXIDE 27 MMOL/L (21-32); CHLORIDE 103 MMOL/L (98-107); CREATININE SERUM 0.77 MG/DL (0.60-1.30); GFR ESTIMATED 80; GLUCOSE 90 MG/DL (70-105); POTASSIUM 3.9 MMOL/L (3.6-5.0); SODIUM 140 MMOL/L (135-145)
[2021-07-14 17:30] LABS: ALBUMIN 4.7 GM/DL (3.2-4.5); TOTAL PROTEIN 7.6 GM/DL (6.4-8.2)
[2021-07-14 17:50] VITALS: BP 125/74
== END 2021-07-14 18:00 | disposition home or self-care (01) ==
LOC: EDUNIT# 16:40 → ER FS 16:44
DX: I25.10 Atherosclerotic heart disease of native coronary artery without angina pectoris (principal); I10 Essential (primary) hypertension; F32.9 Major depressive disorder, single episode, unspecified; Z79.82 Long term (current) use of aspirin; Z79.899 Other long term (current) drug therapy
CPT/HCPCS: 36415; 71045; 80053; 84484; 85025; 85379; 93005

== ENCOUNTER → 2021-08-14 | Outpatient (CLI) | payer OTHER ==
--- NOTE | 2021-08-14 12:23 | Diagnostic Imaging Report ---
INDICATION: Cough, COVID positive PA and lateral chest dated 12:01 p.m. Heart and mediastinal silhouette are normal in appearance. The lungs are clear. There is no pneumothorax or pleural fluid. IMPRESSION: Negative chest. Dictated by: Dictated on workstation # [id number]
== END ==
LOC: RAD FS 11:56
PROVIDERS: ATTEND Family Medicine
DX: U07.1 COVID-19 (principal)
CPT/HCPCS: 71046

== ENCOUNTER 2021-09-15 10:09 | Emergency (ER) | payer OTHER ==
[~2021-09-15] VITALS: Ht 157 cm; Wt 60.0 kg
--- NOTE | 2021-09-15 10:14 | ED General ---
General Stated Complaint: RT ARM TINGLING History of Present Illness Date Seen by Provider: Sep 15, 2021 Time Seen by Provider: 10:13 Initial Comments 51-year-old female presents with right arm tingling and chest heaviness. Patient reports that she has prior history of multiple stent placement. That these have been similar symptoms from her prior need for stenting. Patient reports she has a known blockage but it did not require stenting at the time of her last cardiac cath. Patient follows with Dr. Cris roe in the ER. Patient does not complain of any shortness of breath. She does have some mild nausea. No fevers or chills patient reports she took 2 nitros prior to arrival without any relief Allergies and Home Medications Allergies Coded Allergies: meperidine (Verified Allergy, Unknown, 09/22/05) Patient Home Medication List Home Medication List Reviewed: Yes Aspirin (Aspirin EC) 81 Mg Tablet.dr, 81 MG PO DAILY, (Reported) Entered as Reported by: AMY AYALA on 05/06/20 0850 Atorvastatin Calcium (Atorvastatin Calcium) 80 Mg Tablet, 80 MG PO HS, (Reported) Entered as Reported by: AMY AYALA on 05/06/20 0850 Lisinopril (Lisinopril) 10 Mg Tablet, 10 MG PO DAILY, (Reported) Entered as Reported by: AMY AYALA on 02/18/20 1549 Metoprolol Succinate (Metoprolol Succinate) 25 Mg Tab.er.24h, 25 MG PO DAILY, (Reported) Entered as Reported by: AMY AYALA on 05/06/20 0850 Nitroglycerin (Nitroglycerin) 0.4 Mg Tab.subl, 0.4 MG SL NEEDED PRN for CHEST PAIN (ANGINA) Prescribed by: BLAKE GAVIRIA on 05/06/20 1122 Sertraline HCl (Sertraline HCl) 100 Mg Tablet, 100 MG PO DAILY, (Reported) Entered as Reported by: AMY AYALA on 02/18/20 1549 Ticagrelor (Brilinta) 90 Mg Tablet, 90 MG PO BID, (Reported) Entered as Reported by: AMY AYALA on 05/06/20 0850 Review of Systems Review of Systems Constitutional: No chills, No dizziness, No fever Respiratory: No cough, No short of breath Cardiovascular: see HPI Gastrointestinal: No abdominal pain; nausea; No vomiting Musculoskeletal: no symptoms reported Skin: no symptoms reported Psychiatric/Neurological: Tingling Hematologic/Lymphatic: No Symptoms Reported Immunological/Allergic: no symptoms reported Past Fhhrcvq-Jkwhli-Mrttsg Hx Immunizations Up To Date Tetanus Booster (TDap): Unknown Seasonal Allergies Seasonal Allergies: No Past Medical History Surgeries: Yes Section, Coronary Stent, Hysterectomy Respiratory: No Cardiac: Yes Coronary Artery Disease, Hypertension 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 oz. 61.311951hk; 25.00 BMI Method:Stated General Appearance: No Apparent Distress, WD/WN Neck: Non Tender, Supple Respiratory: Lungs Clear, Normal Breath Sounds Cardiovascular: Regular Rate, Rhythm, No Edema Extremity: Normal Capillary Refill, Normal Inspection, Normal Range of Motion Neurologic/Psychiatric: Alert, Oriented x3, No Motor/Sensory Deficits, Normal Mood/Affect, blocklayer II-XII Norm as Tested Skin: Normal Color, Warm/Dry Progress/Results/Core Measures Suspected Sepsis SIRS Temperature: Pulse: Respiratory Rate: Laboratory Tests 09/15/21 10:24: White Blood Count 5.7 Blood Pressure / Mean: Laboratory Tests 09/15/21 10:24: Creatinine 0.76, INR Comment 1.1, Platelet Count 209, Total Bilirubin 0.6 Results/Orders Lab Results Laboratory Tests Test 09/15/21 10:24 09/15/21 12:09 Range/Units White Blood Count 5.7 4.3-11.0 10^3/uL Red Blood Count 4.23 3.80-5.11 10^6/uL Hemoglobin 13.5 11.5-16.0 g/dL Hematocrit 40 35-52 % Mean Corpuscular Volume 94 80-99 fL Mean Corpuscular Hemoglobin 32 25-34 pg Mean Corpuscular Hemoglobin Concent 34 32-36 g/dL Red Cell Distribution Width 13.5 10.0-14.5 % Platelet Count 209 130-400 10^3/uL Mean Platelet Volume 11.4 9.0-12.2 fL Immature Granulocyte % (Auto) 0 % Neutrophils (%) (Auto) 58 42-75 % Lymphocytes (%) (Auto) 33 12-44 % Monocytes (%) (Auto) 7 0-12 % Eosinophils (%) (Auto) 1 0-10 % Basophils (%) (Auto) 1 0-10 % Neutrophils # (Auto) 3.3 1.8-7.8 10^3/uL Lymphocytes # (Auto) 1.9 1.0-4.0 10^3/uL Monocytes # (Auto) 0.4 0.0-1.0 10^3/uL Eosinophils # (Auto) 0.1 0.0-0.3 10^3/uL Basophils # (Auto) 0.1 0.0-0.1 10^3/uL Immature Granulocyte # (Auto) 0.0 0.0-0.1 10^3/uL Prothrombin Time 14.5 12.2-14.7 SEC INR Comment 1.1 0.8-1.4 Activated Partial Thromboplast Time 26 24-35 SEC Sodium Level 137 135-145 MMOL/L Potassium Level 3.9 3.6-5.0 MMOL/L Chloride Level 99 98-107 MMOL/L Carbon Dioxide Level 25 21-32 MMOL/L Anion Gap 13 5-14 MMOL/L Blood Urea Nitrogen 19 H 7-18 MG/DL Creatinine 0.76 0.60-1.30 MG/DL Estimat Glomerular Filtration Rate 96 BUN/Creatinine Ratio 25 Glucose Level 106 H 70-105 MG/DL Calcium Level 9.8 8.5-10.1 MG/DL Corrected Calcium 8.5-10.1 MG/DL Magnesium Level 2.0 1.6-2.4 MG/DL Total Bilirubin 0.6 0.1-1.0 MG/DL Aspartate Amino Transf (AST/SGOT) 22 5-34 U/L Alanine Aminotransferase (ALT/SGPT) 21 0-55 U/L Alkaline Phosphatase 89 40-136 U/L Myoglobin 51.8 10.0-92.0 NG/ML Troponin I < 0.30 < 0.30 <0.30 NG/ML Total Protein 7.6 6.4-8.2 GM/DL Albumin 4.7 H 3.2-4.5 GM/DL My Orders Orders - ASHA CREWS DO Cbc With Automated Diff (09/15/21 10:20) Magnesium (09/15/21 10:20) Chest 1 View Ap/Pa Only (09/15/21 10:20) Ekg Tracing (09/15/21 10:20) Comprehensive Metabolic Panel (09/15/21 10:20) Myoglobin Serum (09/15/21 10:20) Protime With Inr (09/15/21 10:20) Partial Thromboplastin Time (09/15/21 10:20) Monitor-Rhythm Ecg Trace Only (09/15/21 10:20) Aspirin Chewable Tablet (Baby Aspirin Ch (09/15/21 10:30) Ed Iv/Invasive Line Start (09/15/21 10:20) Troponin I Fs (09/15/21 10:20) Troponin I Fs (09/15/21 12:04) Vital Signs/I&O 09/15/21 10:09 Temp 36.2 Pulse 90 Resp 18 B/P (MAP) 148/80 (102) Pulse Ox 100 O2 Delivery Room Air Capillary Refill : Progress Note : Progress Note Called and discussed with Dr. Lynch. He does not feel that it is an acute cardiac event. He would like her to follow-up with him in his office. Patient's right arm tingling seems to be more consistent with a cervical radiculopathy. Patient later stated in the visit that she gets it frequently at night. 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 I discussed with her that her symptoms are very consistent with a radiculopathy provide her with some neck stretches. Patient should follow-up with her primary care provider for further outpatient evaluation. Patient stable and discharged home ECG Initial ECG Impression Date: Sep 15, 2021 Initial ECG Impression Time: 10:07 Initial ECG Rate: 88 Initial ECG Rhythm: Normal Sinus Initial ECG Intervals: Normal Initial ECG Impression: Normal Comment normal ekg Diagnostic Imaging Diagonstic Imaging: Xray Plain Films/CT/US/NM/MRI: chest Comments Date of Exam:09/15/21 CHEST 1 VIEW AP/PA ONLY EXAMINATION: Chest 1 view HISTORY: Chest pressure COMPARISON: 07/14/2021 FINDINGS: The lungs are clear without edema or pneumonia. No pleural effusion or pneumothorax. Heart size is normal. IMPRESSION: 1. Clear lungs. Reviewed: Reviewed by Me, Reviewed/Discussed Departure Impression Primary Impression: Radiculopathy affecting upper extremity Disposition: 01 HOME, SELF-CARE Condition: Stable Departure-Patient Inst. Referrals: SELF,NAHUM CABELLO (PCP/Family) Primary Care Physician Patient Instructions: Radiculopathy (DC), Neck Stretches Add. Discharge Instructions: Please use your already prescribed nitro as directed from Dr. Lynch Your right arm tingling is consistent with a cervical radiculopathy and overuse syndrome. Please follow some of the neck stretches that have been provided Please call Dr. Lynch's office for an outpatient follow-up ASHA CREWS DO Sep 15, 2021 10:14
[2021-09-15] MEDS ORDERED: ASPIRIN 81 MG CHEW (CHILDREN'S ASA) PO ONE (10:30)
[2021-09-15 10:34] LABS: BASOPHILS # (AUTO) 0.1 10^3/uL (0.0-0.1); BASOPHILS % (AUTO) 1 % (0-10); EOSINOPHILS # (AUTO) 0.1 10^3/uL (0.0-0.3); EOSINOPHILS % (AUTO) 1 % (0-10); HEMATOCRIT 40 % (35-52); HEMOGLOBIN 13.5 g/dL (11.5-16.0); LYMPHOCYTES # (AUTO) 1.9 10^3/uL (1.0-4.0); LYMPHOCYTES % (AUTO) 33 % (12-44); MEAN CORPUSCULAR HEMOGLOBIN 32 pg (25-34); MEAN CORPUSCULAR HGB CONC 34 g/dL (32-36); MEAN CORPUSCULAR VOLUME 94 fL (80-99); MEAN PLATELET VOLUME 11.4 fL (9.0-12.2); MONOCYTES # (AUTO) 0.4 10^3/uL (0.0-1.0); MONOCYTES % (AUTO) 7 % (0-12); NEUTROPHILS # (AUTO) 3.3 10^3/uL (1.8-7.8); NEUTROPHILS % (AUTO) 58 % (42-75); PLATELET COUNT 209 10^3/uL (130-400); WHITE BLOOD COUNT 5.7 10^3/uL (4.3-11.0)
--- NOTE | 2021-09-15 10:37 | Diagnostic Imaging Report ---
EXAMINATION: Chest 1 view HISTORY: Chest pressure COMPARISON: 07/14/2021 FINDINGS: The lungs are clear without edema or pneumonia. No pleural effusion or pneumothorax. Heart size is normal. IMPRESSION: 1. Clear lungs. Dictated by: Dictated on workstation # [id number]
[2021-09-15 10:50] LABS: INR 1.1 (0.8-1.4); PROTHROMBIN TIME PATIENT 14.5 SEC (12.2-14.7)
[2021-09-15 11:06] LABS: ALANINE AMINOTRANSFERASE 21 U/L (0-55); ALKALINE PHOSPHATASE 89 U/L (40-136); BILIRUBIN,TOTAL 0.6 MG/DL (0.1-1.0); BUN/CREATININE RATIO 25; CALCIUM 9.8 MG/DL (8.5-10.1); CARBON DIOXIDE 25 MMOL/L (21-32); CHLORIDE 99 MMOL/L (98-107); CREATININE SERUM 0.76 MG/DL (0.60-1.30); GFR ESTIMATED 96; GLUCOSE 106 MG/DL (70-105); POTASSIUM 3.9 MMOL/L (3.6-5.0); SODIUM 137 MMOL/L (135-145); TOTAL PROTEIN 7.6 GM/DL (6.4-8.2)
[2021-09-15 11:07] LABS: ALBUMIN 4.7 GM/DL (3.2-4.5)
[2021-09-15 13:25] VITALS: BP 132/76
== END 2021-09-15 13:26 | disposition home or self-care (01) ==
LOC: EDUNIT# 10:09 → ER FS 10:10
DX: M54.10 Radiculopathy, site unspecified (principal); I10 Essential (primary) hypertension; I25.10 Atherosclerotic heart disease of native coronary artery without angina pectoris; F32.9 Major depressive disorder, single episode, unspecified; Z79.899 Other long term (current) drug therapy; Z79.82 Long term (current) use of aspirin
CPT/HCPCS: 36415; 71045; 80053; 83735; 83874; 84484; 85025; 85610; 85730; 93005; 93041

== ENCOUNTER → 2021-09-21 | Outpatient (CLI) | payer OTHER ==
[~2021-09-21] VITALS: Ht 165 cm; Wt 62.0 kg
[~2021-09-21] MED LIST changes: +CATHETER FLUSH 10 ML SYR IV PRN
[2021-09-21 12:05] VITALS: BP 105/67
--- NOTE | 2021-09-22 08:11 | Cardiology Stress Test Report ---
Stress Test Report Date of Procedure/Referring: Date of Procedure: Sep 21, 2021 Jenny Mead Admitting Physician Clark Sheppard MD Indications: HTN Baseline Heart Rate: 62 Baseline Blood Pressure: Blood Pressure Systolic: 105 Blood Pressure Diastolic: 67 Vital Signs Date Time Temp Pulse Resp B/P (MAP) Pulse Ox O2 Delivery O2 Flow Rate FiO2 09/21/21 12:05 88 18 105/67 (80) 99 Room Air Baseline Vital Signs Vital Signs Date Time Temp Pulse Resp B/P (MAP) Pulse Ox O2 Delivery O2 Flow Rate FiO2 09/21/21 12:05 88 18 105/67 (80) 99 Room Air Baseline EKG: Baseline EKG: NSR Summary: After explaining the procedure and details to the patient, she signed the consent and was brought to the stress nuclear laboratory. Patient exercised on standard Tommy protocol, EKG, heart rate and blood pressure were monitored continuously, resting and stress doses of radio tracer were injected, imaging was acquired and reviewed in the short axis, horizontal long axis and vertical long axis views Patient was able to exercise for a total of 10 minutes on Tommy protocol, METs 11.7 Maximum heart rate 150 Maximum blood pressure 159/80 Stress EKG, Minimal nondiagnostic changes Recovery EKG, Return to baseline TID: 1.07 SSS: 0 SDS: 0 EF: 72 Conclusion: 1. Good exercise tolerance for a total of 10 minutes on standard Tommy protocol, 11.7 METS achieving 87% of maximal expected heart rate 2. Appropriate heart rate and blood pressure response to exercise return to b aseline during recovery 3. Breast attenuation with no significant ischemia or infarction on SPECT images 4. Normal left ventricular size, EF 72% SIMI HENRIQUEZ MD Sep 22, 2021 08:11
== END ==
LOC: CARD 11:00
PROVIDERS: ATTEND Physician Assistant
DX: I10 Essential (primary) hypertension (principal); I25.10 Atherosclerotic heart disease of native coronary artery without angina pectoris
CPT/HCPCS: 78452; 93017; A9502

== ENCOUNTER 2021-12-31 03:13 | Emergency (ER) | payer OTHER ==
[~2021-12-31] VITALS: Ht 154.9 cm; Wt 60.7 kg
[~2021-12-31 03:13] MED LIST changes: -CATHETER FLUSH 10 ML SYR IV PRN
[2021-12-31] MEDS ORDERED: LORazepam INJ 2 MG/ML (ATIVAN) VIAL IVP STA (03:38)
[2021-12-31 03:42] LABS: BASOPHILS % (AUTO) 1 % (0-10); EOSINOPHILS # (AUTO) 0.2 10^3/uL (0.0-0.3); EOSINOPHILS % (AUTO) 4 % (0-10); HEMATOCRIT 36 % (35-52); HEMOGLOBIN 12.4 g/dL (11.5-16.0); LYMPHOCYTES # (AUTO) 1.9 10^3/uL (1.0-4.0); LYMPHOCYTES % (AUTO) 38 % (12-44); MEAN CORPUSCULAR HEMOGLOBIN 32 pg (25-34); MEAN CORPUSCULAR HGB CONC 35 g/dL (32-36); MEAN CORPUSCULAR VOLUME 93 fL (80-99); MEAN PLATELET VOLUME 10.9 fL (9.0-12.2); MONOCYTES # (AUTO) 0.4 10^3/uL (0.0-1.0); MONOCYTES % (AUTO) 9 % (0-12); NEUTROPHILS # (AUTO) 2.5 10^3/uL (1.8-7.8); NEUTROPHILS % (AUTO) 49 % (42-75); PLATELET COUNT 205 10^3/uL (130-400); WHITE BLOOD COUNT 5.1 10^3/uL (4.3-11.0)
[2021-12-31] MEDS ORDERED: ANTACID SUSP 30 ML UDC (MYLANTA) PO ONE (03:45)
[2021-12-31] MEDS ORDERED: LIDOCAINE 2% VISCOUS 15 ML UDC PO ONE (03:45)
[2021-12-31] MEDS ORDERED: ASPIRIN 81 MG CHEW (CHILDREN'S ASA) PO ONE (03:45)
[2021-12-31] MEDS ORDERED: CLOPIDOGREL 75 MG (PLAVIX) TABLET PO ONE (03:45)
--- NOTE | 2021-12-31 03:46 | ED Cardiac General ---
History of Present Illness General Chief Complaint: Cardiac/General Problems Stated Complaint: CHEST PAIN Nursing Triage Note: Pt reports chest tightness that radiates down her left arm since yesterday but reports pain woke her up at 0145 tonight. Pt took two nitro w/o relief. Previous cardiac stent. Pt is taking Plavix and 81mg ASA daily. Source: patient Exam Limitations: no limitations History of Present Illness Date Seen by Provider: December 31, 2021 Time Seen by Provider: 03:26 Initial Comments 51-year-old female with past medical history of CAD status post stenting on baby aspirin and Plavix daily coming in due to chest tightness. She felt some discomfort yesterday during the workday, thought she was okay, woke up at 2 AM with worsening tightness so presented here. She did take 2 nitro which did not help. Similar to prior episodes in the emergency department in which she has been discharged prior, so it is difficult for her to tell how severe it is. She did have a normal stress test about 3 months after the last stent was placed. She says she quit smoking cigarettes about 8 months ago, and now vapes nicotine much less often. She is otherwise denying any significant shortness of breath, cough, hemoptysis, lower leg swelling or pain, prior history of DVT or PE, hormone use, recent long travel, recent surgery, fever, weakness, numbness, or any other concerns. ASA po UROLOGIC NURSE: Yes (81mg) Allergies and Home Medications Allergies Coded Allergies: meperidine (Verified Allergy, Unknown, 09/22/05) Patient Home Medication List Home Medication List Reviewed: Yes Aspirin (Aspirin EC) 81 Mg Tablet.dr, 81 MG PO DAILY, (Reported) Entered as Reported by: AMY AYALA on 05/06/20 0850 Atorvastatin Calcium (Atorvastatin Calcium) 80 Mg Tablet, 80 MG PO HS, (Reported) Entered as Reported by: AMY AYALA on 05/06/20 0850 Isosorbide Mononitrate (Isosorbide Mononitrate ER) 60 Mg Tab, 60 MG PO DAILY Prescribed by: CAITLYN RIVERA on 12/31/21 0613 Lisinopril (Lisinopril) 10 Mg Tablet, 10 MG PO DAILY, (Reported) Entered as Reported by: AMY AYALA on 02/18/20 1549 Metoprolol Succinate (Metoprolol Succinate) 25 Mg Tab.er.24h, 25 MG PO DAILY, (Reported) Entered as Reported by: AMY AYALA on 05/06/20 0850 Nitroglycerin (Nitroglycerin) 0.4 Mg Tab.subl, 0.4 MG SL NEEDED PRN for CHEST PAIN (ANGINA) Prescribed by: BLAKE GAVIRIA on 05/06/20 1122 Sertraline HCl (Sertraline HCl) 100 Mg Tablet, 100 MG PO DAILY, (Reported) Entered as Reported by: AMY AYALA on 02/18/20 1549 Ticagrelor (Brilinta) 90 Mg Tablet, 90 MG PO BID, (Reported) Entered as Reported by: AMY AYALA on 05/06/20 0850 Review of Systems Review of Systems Constitutional: No fever EENTM: No Blurred Vision Respiratory: Denies Cough, Denies Shortness of Air Cardiovascular: Chest Pain Gastrointestinal: Denies Abdominal Pain Genitourinary: No Symptoms Reported Musculoskeletal: no symptoms reported Skin: no symptoms reported Psychiatric/Neurological: No Symptoms Reported Endocrine: No Symptoms Reported Hematologic/Lymphatic: No Symptoms Reported All Other Systems Reviewed Negative Unless Noted: Yes Past Tgcalzq-Wtzhsc-Gdeeah Hx Patient Social History Tobacco Use?: No Use of E-Cig and/or Vaping dev: Yes E-Cig or Vaping type used: Nicotine Substance use?: No Alcohol Use?: Yes Alcohol type: Beer Alcohol Frequency: Rarely Pt feels they are or have been: No Immunizations Up To Date Tetanus Booster (TDap): Unknown Influenza Vaccine Up-to-Date: Yes; Up-to-Date First/Initial COVID19 Vaccinat: denies Seasonal Allergies Seasonal Allergies: No Past Medical History Surgeries: Yes Section, Coronary Stent, Hysterectomy Respiratory: No Cardiac: Yes Coronary Artery Disease, Hypertension Neurological: No [employer] History: Hysterectomy Genitourinary: No Gastrointestinal: No Musculoskeletal: No Endocrine: No HEENT: No Cancer: No Psychosocial: Yes Depression Integumentary: No Physical Exam Vital Signs Vital Signs - First Documented 12/31/21 03:19 Temp 36.4 Pulse 67 Resp 14 B/P (MAP) 123/81 (95) Pulse Ox 100 O2 Delivery Room Air Capillary Refill : Less Than 3 Seconds Height, Weight, BMI Height: 5'0" Weight: 135lbs. oz. 61.770771oj; 25.00 BMI Method:Stated General Appearance: No Apparent Distress, WD/WN HEENT: PERRL/EOMI, Normal ENT Inspection, Pharynx Normal Neck: Full Range of Motion, Normal Inspection, Non Tender, Supple Respiratory: Lungs Clear, Normal Breath Sounds, No Accessory Muscle Use, No Respiratory Distress, Other (chest tenderness to palpation in the center of her chest that recreates pain) Cardiovascular: Regular Rate, Rhythm, No Edema, Normal Peripheral Pulses Gastrointestinal: Normal Bowel Sounds, Non Tender, Soft; No Distended, No Guarding Extremity: Normal Capillary Refill, Normal Inspection, Normal Range of Motion, Non Tender, No Calf Tenderness, No Pedal Edema Neurologic/Psychiatric: Alert, No Motor/Sensory Deficits, Normal Mood/Affect Skin: Normal Color, Warm/Dry Lymphatic: No Adenopathy Progress/Results/Core Measures Results/Orders Lab Results Laboratory Tests Test 12/31/21 03:30 12/31/21 05:18 Range/Units White Blood Count 5.1 4.3-11.0 10^3/uL Red Blood Count 3.86 3.80-5.11 10^6/uL Hemoglobin 12.4 11.5-16.0 g/dL Hematocrit 36 35-52 % Mean Corpuscular Volume 93 80-99 fL Mean Corpuscular Hemoglobin 32 25-34 pg Mean Corpuscular Hemoglobin Concent 35 32-36 g/dL Red Cell Distribution Width 14.3 10.0-14.5 % Platelet Count 205 130-400 10^3/uL Mean Platelet Volume 10.9 9.0-12.2 fL Immature Granulocyte % (Auto) 0 % Neutrophils (%) (Auto) 49 42-75 % Lymphocytes (%) (Auto) 38 12-44 % Monocytes (%) (Auto) 9 0-12 % Eosinophils (%) (Auto) 4 0-10 % Basophils (%) (Auto) 1 0-10 % Neutrophils # (Auto) 2.5 1.8-7.8 10^3/uL Lymphocytes # (Auto) 1.9 1.0-4.0 10^3/uL Monocytes # (Auto) 0.4 0.0-1.0 10^3/uL Eosinophils # (Auto) 0.2 0.0-0.3 10^3/uL Basophils # (Auto) 0.0 0.0-0.1 10^3/uL Immature Granulocyte # (Auto) 0.0 0.0-0.1 10^3/uL Prothrombin Time 12.3 12.2-14.7 SEC INR Comment 0.9 0.8-1.4 Activated Partial Thromboplast Time 26 24-35 SEC Sodium Level 138 135-145 MMOL/L Potassium Level 4.2 3.6-5.0 MMOL/L Chloride Level 102 98-107 MMOL/L Carbon Dioxide Level 24 21-32 MMOL/L Anion Gap 12 5-14 MMOL/L Blood Urea Nitrogen 17 7-18 MG/DL Creatinine 0.69 0.60-1.30 MG/DL Estimat Glomerular Filtration Rate 106 BUN/Creatinine Ratio 25 Glucose Level 113 H 70-105 MG/DL Calcium Level 8.8 8.5-10.1 MG/DL Corrected Calcium 8.6 8.5-10.1 MG/DL Magnesium Level 1.8 1.6-2.4 MG/DL Total Bilirubin 0.3 0.1-1.0 MG/DL Aspartate Amino Transf (AST/SGOT) 21 5-34 U/L Alanine Aminotransferase (ALT/SGPT) 18 0-55 U/L Alkaline Phosphatase 82 40-136 U/L Troponin I < 0.30 < 0.30 <0.30 NG/ML Pro-B-Type Natriuretic Peptide 127.4 H <75.0 PG/ML Total Protein 6.6 6.4-8.2 GM/DL Albumin 4.2 3.2-4.5 GM/DL My Orders Orders - CAITLYN RIVERA MD Cbc With Automated Diff (12/31/21 03:26) Magnesium (12/31/21 03:) Chest 1 View Ap/Pa Only (12/31/21 03:26) Ekg Tracing (12/31/21 03:26) Comprehensive Metabolic Panel (12/31/21 03:) Protime With Inr (12/31/21 03:26) Partial Thromboplastin Time (12/31/21:) O2 (12/31/21:) Monitor-Rhythm Ecg Trace Only (12/31/21 03:26) Ed Iv/Invasive Line Start (12/31/21 03:26) Troponin I Fs (12/31/21 03:26) Probnp Fs (5/26/22 03:26) Lidocaine 2% Viscous 15 Ml (Xylocaine Vi (12/31/21 03:45) Antacid Suspension (Mylanta Suspension (12/31/21 03:45) Aspirin Chewable Tablet (Baby Aspirin Ch (12/31/21 03:45) Clopidogrel Tablet (Plavix Tablet) (12/31/21 03:45) Lorazepam Injection (Ativan Injection) (12/31/21 03:38) Lorazepam Injection (Ativan Injection) (12/31/21 03:49) Ns Iv 1000 Ml (Sodium Chloride 0.9%) (12/31/21 04:15) Troponin I Fs (12/31/21 05:20) Medications Given in ED Current Medications Medications Dose Ordered Sig/Parmjit Route Start Time Stop Time Status Last Admin Dose Admin Al Hydrox/Mg Hydrox/Simethicone 30 ml ONCE ONCE PO 12/31/21 03:45 12/31/21 03:46 DC 12/31/21 03:47 30 ML Aspirin 324 mg ONCE ONCE PO 12/31/21 03:45 12/31/21 03:46 DC 12/31/21 03:46 324 MG Clopidogrel Bisulfate 75 mg ONCE ONCE PO 12/31/21 03:45 12/31/21 03:46 DC 12/31/21 03:47 75 MG Lidocaine HCl 15 ml ONCE ONCE PO 12/31/21 03:45 12/31/21 03:46 DC 12/31/21 03:47 15 ML Lorazepam 2 mg STK-MED ONCE .ROUTE 12/31/21 03:49 12/31/21 03:53 DC 12/31/21 03:50 0.5 MG Vital Signs/I&O 12/31/21 12/31/21 12/31/21 12/31/21 03:19 04:00 04:15 04:30 Temp 36.4 Pulse 67 68 62 55 Resp 14 17 16 17 B/P (MAP) 123/81 (95) 86/51 88/51 113/71 Pulse Ox 100 98 97 99 O2 Delivery Room Air Room Air Room Air Room Air 12/31/21 12/31/21 05:15 06:00 Pulse 58 66 Resp 18 17 B/P (MAP) 97/60 106/60 Pulse Ox 98 99 O2 Delivery Room Air Room Air Blood Pressure Mean: 95 Progress Progress Note : Progress Note 51-year-old female with above history coming in due to chest pain. ABCs were intact and vitals were stable on presentation. EKG with no ST elevation or T wave inversions. She does have some ST depression in the inferior leads, but when I go back and look at multiple prior EKGs it is consistently there with no changes. She was given full dose aspirin as well as her Plavix. She was also given a GI cocktail as well as Ativan since this has helped her with her discomfort in the past. Immediately after getting the Ativan and falling asleep, her blood pressure did drop some for which she was given fluids. When she was woken up it would come back up appropriately. Physical labs obtained including cardiac biomarkers. Troponin negative x2 with repeat. Chest x-ray with no acute findings. Given the constant pain for many hours with a negative troponin x2, it is very unlikely this is an ACS equivalent. She is low risk for PE per [place] criteria and is PERC negative. I discussed the case with the military police officer on-call, Dr. Rubio, and given the patient is still having some chest discomfort, although better, he had 2 options. For the stable angina that she seems to exhibit, we could try isosorbide mononitrate and calling Dr. Lynch's office in the morning for her to have close follow-up. We would also admit her to the hospital for serial troponins and further evaluation by the cardiology team. I discussed this with the patient, and she would prefer to go home at this time. I believe she is stable for discharge with outpatient follow-up. She was sent home with strict return precautions. Initial ECG Impression Date: December 31, 2021 Initial ECG Impression Time: 03:24 Initial ECG Rate: 64 Initial ECG Rhythm: Normal Sinus Comment Narrow QRS, normal axis, no significant ST elevation, there is ST depression in the inferior leads which is similar to prior EKG, no T wave inversions Diagnostic Imaging Diagonstic Imaging: Xray Plain Films/CT/US/NM/MRI: chest Comments Normal cardiac silhouette, normal lung dai with no opacities, no pneumothorax, no pleural effusion Departure Impression Primary Impression: Chest pain Qualified Codes: R07.82 - Intercostal pain Additional Impression: CAD (coronary artery disease) Qualified Codes: I25.118 - Atherosclerotic heart disease of [place] coronary artery with other forms of angina pectoris Disposition: HOME, SELF-CARE Condition: Stable Departure-Patient Inst. Decision time for Depature: 06:15 Referrals: SIMI LYNCH MD SELF,NAHUM CABELLO (PCP/Family) Primary Care Physician Patient Instructions: Chest Pain, Adult ED, Chest Pain (DC) Add. Discharge Instructions: Fortunately, your labs look good today and it does not appear like you are havin g an active heart attack. This of course can change at any moment. We will add a medication that can assist with chest pain that you will take once daily. I would like you to call Dr. Lynch's office first thing in the morning to be seen as soon as possible. If things worsen or you have any concerns you can always come back to the ER. Scripts Isosorbide Mononitrate (Isosorbide Mononitrate ER) 60 Mg Tab 60 MG PO DAILY for 30 Days, #30 TAB Prov: CAITLYN RIVERA MD 12/31/21 Work/School Note: Work Release Form Date Seen in the Emergency Department: December 31, 2021 Return to Work: January 01, 2022 Restrictions: No Restrictions CAITLYN RIVERA MD December 31, 2021 03:46
[2021-12-31] MEDS ORDERED: LORazepam INJ 2 MG/ML (ATIVAN) VIAL ONE (03:49)
[2021-12-31 03:51] LABS: INR 0.9 (0.8-1.4); PROTHROMBIN TIME PATIENT 12.3 SEC (12.2-14.7)
[2021-12-31] MEDS ORDERED: NS IV 1000 ML 1,000 ML IV SCH (04:15)
[2021-12-31 04:19] LABS: BILIRUBIN,TOTAL 0.3 MG/DL (0.1-1.0); CALCIUM 8.8 MG/DL (8.5-10.1); CREATININE SERUM 0.69 MG/DL (0.60-1.30); MAGNESIUM 1.8 MG/DL (1.6-2.4); POTASSIUM 4.2 MMOL/L (3.6-5.0); TOTAL PROTEIN 6.6 GM/DL (6.4-8.2)
[2021-12-31 04:20] LABS: ALBUMIN 4.2 GM/DL (3.2-4.5)
[2021-12-31] MEDS ORDERED: ISOS60TA63 PO (06:13)
[2021-12-31 06:18] VITALS: BP 106/60
--- NOTE | 2021-12-31 06:43 | Diagnostic Imaging Report ---
INDICATION: Chest pain Frontal chest obtained at 3:33 a.m. and compared to 09/15/2021. Heart and mediastinal silhouette are normal in appearance. The lungs are clear. There is no pneumothorax or pleural fluid. IMPRESSION: Negative chest. Dictated by: Dictated on workstation # [id number]
== END 2021-12-31 06:18 | disposition home or self-care (01) ==
LOC: EDUNIT# 03:13 → ER FS 03:17
DX: I25.118 Atherosclerotic heart disease of native coronary artery with other forms of angina pectoris (principal); F17.210 Nicotine dependence, cigarettes, uncomplicated; Z79.82 Long term (current) use of aspirin; Z79.02 Long term (current) use of antithrombotics/antiplatelets
CPT/HCPCS: 36415; 71045; 80053; 83735; 83880; 84484; 85025; 85610; 85730; 93005; 93041

== ENCOUNTER 2022-08-12 09:29 | Emergency (ER) | payer OTHER ==
[~2022-08-12] VITALS: Ht 154.9 cm; Wt 59.9 kg
[~2022-08-12 09:29] MED LIST changes: +ISOS60TA63 PO
[2022-08-12] MEDS ORDERED: morphine INJ 10 MG/ML 1ML (SYR OR VIAL) IVP STA ×2 (09:39→10:48)
[2022-08-12] MEDS ORDERED: NS IV 1000 ML 1,000 ML IV STA (09:39)
[2022-08-12] MEDS ORDERED: ONDANSETRON 4 MG/2 ML (SDV) Z0FRAN IVP STA (09:39)
[2022-08-12] MEDS ORDERED: NITROGLYCERIN 0.4 MG SL TABS BTL 25'S SL PRN (09:45)
[2022-08-12] MEDS ORDERED: ASPIRIN 81 MG CHEW (CHILDREN'S ASA) PO ONE (09:45)
--- NOTE | 2022-08-12 09:45 | ED Chest Pain ---
General Stated Complaint: CHEST PAIN Source: patient History of Present Illness Date Seen by Provider: Aug 12, 2022 Time Seen by Provider: 09:30 Initial Comments 52-year-old female presenting with complaints of chest tightness and pressure along with nausea and feeling dizzy that started approximately 15 minutes prior to arrival. 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 She states that she has had similar symptoms 2 years ago when she had a heart attack and had to have stents placed. She follows with Dr. Lynch out of [place]. She states the last time they did the heart cath they told her that she had some blockages in the right coronary artery but not enough to require stenting. She took her regular medications this morning including a baby aspirin of 81 mg. When her pain and pressure started she took nitroglycerin and has had 2 of those prior to arrival in the ED. She states she was feeling well prior to onset of symptoms about 15 to 20 minutes prior to arrival. With her having symptoms similar to when she had prior stent placement and OH she is at increased risk of this being a recurrence or new blockage with her coronary arteries and possible OH or unstable angina. 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) Associated Symptoms: No abdominal pain, No back pain, No diaphoresis; dizziness; No edema, No fatigue, No fever/chills, No headache, No heartburn; nausea/vomiting (nausea but no emesis); No rash, No shortness of breath, No swelling/lump in chest, No syncope, No weakness Allergies and Home Medications Allergies Coded Allergies: meperidine (Verified Allergy, Unknown, 09/22/05) Patient Home Medication List Home Medication List Reviewed: Yes Aspirin (Aspirin EC) 81 Mg Tablet., 81 MG PO DAILY, (Reported) Entered as Reported by: AMY AYALA on 05/06/20 0850 Atorvastatin Calcium (Atorvastatin Calcium) 80 Mg Tablet, 80 MG PO HS, (Reported) Entered as Reported by: AMY AYALA on 05/06/20 0850 Isosorbide Mononitrate (Isosorbide Mononitrate ER) 60 Mg Tab, 60 MG PO DAILY Prescribed by: CAITLYN RIVERA on 12/31/21 0613 Isosorbide Mononitrate (Isosorbide Mononitrate ER) 30 Mg Tab.er.24h, 30 MG PO DAILY Prescribed by: RODY LYN on 08/12/22 1236 Lisinopril (Lisinopril) 10 Mg Tablet, 10 MG PO DAILY, (Reported) Entered as Reported by: AMY AYALA on 02/18/20 1549 Metoprolol Succinate (Metoprolol Succinate) 25 Mg Tab.er.24h, 25 MG PO DAILY, (Reported) Entered as Reported by: AMY AYALA on 05/06/20 0850 Nitroglycerin (Nitroglycerin) 0.4 Mg Tab.subl, 0.4 MG SL NEEDED PRN for CHEST PAIN (ANGINA) Prescribed by: RODY LYN on 08/12/22 1248 Sertraline HCl (Sertraline HCl) 100 Mg Tablet, 100 MG PO DAILY, (Reported) Entered as Reported by: AMY AYALA on 02/18/20 1549 Ticagrelor (Brilinta) 90 Mg Tablet, 90 MG PO BID, (Reported) Entered as Reported by: AMY AYALA on 05/06/20 0850 Review of Systems Review of Systems Constitutional: No chills, No fever; malaise EENTM: No Symptoms Reported Respiratory: No Symptoms Reported Cardiovascular: See HPI Gastrointestinal: See HPI Genitourinary: No Symptoms Reported Musculoskeletal: no symptoms reported Skin: no symptoms reported Psychiatric/Neurological: Anxiety Endocrine: No Symptoms Reported Past Zbakcwe-Kmnqqc-Bnjnha Hx Immunizations Up To Date Tetanus Booster (TDap): Unknown First/Initial COVID19 Vaccinat: denies Seasonal Allergies Seasonal Allergies: No Past Medical History Surgery/Hospitalization HX: Hypertension, Hypercholesterolemia, CAD, OH with stents Surgeries: Yes Section, Coronary Stent, Hysterectomy Respiratory: No Cardiac: Yes Coronary Artery Disease, Hypertension Neurological: No HOT PATCHER History: Hysterectomy Genitourinary: No Gastrointestinal: No Musculoskeletal: No Endocrine: No HEENT: No Cancer: No Psychosocial: Yes Depression Integumentary: No Physical Exam Vital Signs Vital Signs - First Documented 08/12/22 09:29 Temp 36.3 Pulse 83 Resp 19 B/P (MAP) 118/76 (90) Pulse Ox 100 O2 Delivery Room Air Capillary Refill : Height, Weight, BMI Height: 5'0" Weight: 135lbs. oz. 61.318995nj; 25.00 BMI Method:Stated General Appearance: Anxious, Mild Distress HEENT: PERRL/EOMI, Pharynx Normal Neck: Full Range of Motion, Normal Inspection, Non Tender, Supple; No Carotid Bruit Respiratory: Chest Non Tender, Lungs Clear, Normal Breath Sounds, No Accessory Muscle Use, No Respiratory Distress Cardiovascular: Regular Rate, Rhythm, Normal Peripheral Pulses Gastrointestinal: Normal Bowel Sounds, No Pulsatile Mass, Non Tender, Soft Rectal: Deferred Extremity: Normal Capillary Refill, Normal Inspection, No Pedal Edema Neurologic/Psychiatric: Alert, Oriented x3, No Motor/Sensory Deficits, trade analyst II- XII Norm as Tested Skin: Normal Color, Warm/Dry Critical Care Note Critical Care Total Time (minutes) 60 minutes Progress 60 minutes of critical care time was spent with the patient. Time excludes separately billable procedures. Time includes obtaining history from the patient, reviewing cardiology notes from prior admissions, ordering tests and reviewing results, ordering interventions and reviewing response, discussion with consultants, documentation in the chart. Patient was at risk of car diovascular compromise or failure with concern for acute coronary syndrome versus OH versus unstable angina. She required my continuous monitoring and intervention to manage her chest pain and symptoms. Progress/Results/Core Measures Results/Orders Lab Results Laboratory Tests Test 08/12/22 09:41 08/12/22 11:28 Range/Units White Blood Count 6.3 4.3-11.0 10^3/uL Red Blood Count 4.20 3.80-5.11 10^6/uL Hemoglobin 13.7 11.5-16.0 g/dL Hematocrit 39 35-52 % Mean Corpuscular Volume 94 80-99 fL Mean Corpuscular Hemoglobin 33 25-34 pg Mean Corpuscular Hemoglobin Concent 35 32-36 g/dL Red Cell Distribution Width 13.3 10.0-14.5 % Platelet Count 211 130-400 10^3/uL Mean Platelet Volume 11.1 9.0-12.2 fL Immature Granulocyte % (Auto) 0 % Neutrophils (%) (Auto) 64 42-75 % Lymphocytes (%) (Auto) 26 12-44 % Monocytes (%) (Auto) 7 0-12 % Eosinophils (%) (Auto) 3 0-10 % Basophils (%) (Auto) 1 0-10 % Neutrophils # (Auto) 4.0 1.8-7.8 10^3/uL Lymphocytes # (Auto) 1.6 1.0-4.0 10^3/uL Monocytes # (Auto) 0.4 0.0-1.0 10^3/uL Eosinophils # (Auto) 0.2 0.0-0.3 10^3/uL Basophils # (Auto) 0.0 0.0-0.1 10^3/uL Immature Granulocyte # (Auto) 0.0 0.0-0.1 10^3/uL Prothrombin Time 12.3 12.2-14.7 SEC INR Comment 0.9 0.8-1.4 Activated Partial Thromboplast Time 26 24-35 SEC D-Dimer 0.36 0.00-0.49 UG/ML Sodium Level 138 135-145 MMOL/L Potassium Level 4.2 3.6-5.0 MMOL/L Chloride Level 100 98-107 MMOL/L Carbon Dioxide Level 27 21-32 MMOL/L Anion Gap 11 5-14 MMOL/L Blood Urea Nitrogen 16 7-18 MG/DL Creatinine 0.80 0.60-1.30 MG/DL Estimat Glomerular Filtration Rate 90 BUN/Creatinine Ratio 20 Glucose Level 121 H 70-105 MG/DL Calcium Level 9.1 8.5-10.1 MG/DL Corrected Calcium 8.8 8.5-10.1 MG/DL Magnesium Level 1.9 1.6-2.4 MG/DL Total Bilirubin 0.4 0.1-1.0 MG/DL Aspartate Amino Transf (AST/SGOT) 23 5-34 U/L Alanine Aminotransferase (ALT/SGPT) 21 0-55 U/L Alkaline Phosphatase 91 40-136 U/L Myoglobin 33.7 <58.0 NG/ML Troponin I < 0.30 < 0.30 <0.30 NG/ML Pro-B-Type Natriuretic Peptide 67.2 <125.0 PG/ML Total Protein 7.0 6.4-8.2 GM/DL Albumin 4.4 3.2-4.5 GM/DL Lipase 22 8-78 U/L My Orders Orders - ENYART,RODY E MD Cbc With Automated Diff (08/12/22 09:32) Magnesium (08/12/22 09:32) Chest 1 View Ap/Pa Only (08/12/22 09:32) Ekg Tracing (08/12/22 09:32) Comprehensive Metabolic Panel (08/12/22 09:32) Myoglobin Serum (08/12/22 09:32) Protime With Inr (08/12/22 09:32) Partial Thromboplastin Time (08/12/22 09:32) O2 (08/12/22 09:32) Monitor-Rhythm Ecg Trace Only (08/12/22 09:32) Aspirin Chewable Tablet (Baby Aspirin Ch (08/12/22 09:45) Ed Iv/Invasive Line Start (08/12/22 09:32) Lipase (08/12/22 09:32) Troponin I Fs (08/12/22 09:32) Probnp Fs (08/12/22 09:32) Nitroglycerin 0.4 Mg Btl 25's (Nitrostat (08/12/22 09:45) Ns Iv 1000 Ml (Sodium Chloride 0.9%) (08/12/22 09:39) Ondansetron Injection (Zofran Injectio (08/12/22 09:39) Morphine Injection (Morphine Injection (08/12/22 09:39) Morphine Injection (Morphine Injection (08/12/22 10:48) Fibrin Degradation Products (08/12/22 10:48) Troponin I Fs (08/12/22 11:17) Ekg Tracing (08/12/22 11:43) Medications Given in ED Current Medications Medications Dose Ordered Sig/Parmjit Route Start Time Stop Time Status Last Admin Dose Admin Aspirin 324 mg ONCE ONCE PO 08/12/22 09:45 08/12/22 09:46 DC 08/12/22 09:41 324 MG Vital Signs/I&O 08/12/22 08/12/22 08/12/22 09:29 09:29 12:44 Temp 36.3 36.4 Pulse 83 84 Resp 19 17 B/P (MAP) 118/76 (90) 119/67 Pulse Ox 100 100 O2 Delivery Room Air Room Air Room Air Progress Progress Note #1: Progress Note Patient was at risk of life-threatening illness such as myocardial infarction, pulmonary embolism, acute coronary syndrome. Obtain electrocardiogram on chinyere mast's arrival and complaint of chest pain. On my review and interpretation of her electrocardiogram she had sinus rhythm and there is no ST elevation. Order labs including CBC, chemistry, magnesium, cardiac enzymes, proBNP, chest x-ray, electrocardiogram. Since she is only had 81 mg of aspirin will administer a total of 324 mg of aspirin to help with antiplatelet effect if this is acute coronary syndrome. Ordered additional sublingual nitroglycerin every 5 minutes as needed chest pain x3. Morphine 2 mg IV x1 for chest pain and chest tightness. Zofran 4 mg IV for nausea. Normal saline 1 L IV fluid bolus to help with hydration and blood pressure. Placed on cardiac facility supervisor and showed sinus rhythm in the 80s with out ST elevation or ectopy. Her initial blood pressure was 118/78. She did dip down to 94/79 after aspirin here in the ED. We will continue with IV fluids for hydration and help with her blood pressure while monitoring and waiting on labs. Hold on the additional NTG for now but try NS for IVF, Morphine 2 mg IV, Zofran 4 mg IV. Progress Note #2: Time: 09:56 Progress Note Based on my review of the cardiology notes from Dr. Lynch and Dr. Esquivel she had RCA stented by Dr. Esquivel 02/19/2020, Dr. Lynch placed Left diagonal coronary artery stent 07/01/2021, Stress test 09/22/2021 did not show any acute ischemic changes or reversible areas of ischemia. My personal review and interpretation of her 1 view chest x-ray shows no acute infiltrate or effusion. She has no acute process and no cardiomegaly. Progress Note #3: Time: 10:44 Progress Note Reviewed lab findings with the patient and her electrocardiogram and chest x- ray. Advised patient that her CBC and chemistry panel did not show any acute abnormality and her electrolytes look good. Her initial troponin was negative from a heart standpoint. Her chest x-ray was not showing any acute process to explain her symptoms. Advised that we may need to do a CT angiogram of her chest to look for problems with the lungs or pulmonary arteries or aorta but will first repeat her heart enzymes. Will obtain a second troponin for serial testing at 2 hours post arrival in the ED. We will also give an additional m orphine dose of 2 mg IV as she had improvement in her symptoms after the initial morphine dose. Her blood pressure remains between 90 systolic and 115 systolic after receiving normal saline 1 L bolus. We will continue to monitor her blood pressure while getting the pain medicine. She remains in a normal sinus rhythm on telemetry monitoring with a heart rate in the 60s without ectopy or ST elevation. Progress Note #4: Time: 11:49 Progress Note Repeat electrocardiogram shows sinus bradycardia with a heart rate of 58 bpm. AZ interval 138 ms. There is no acute ST elevation. QT interval 461 ms with a QTc interval 458 ms. Overall appears similar to initial tracing this morning. Her chest pain had dropped 0 or 1 after the second dose of morphine 2mg IV. We will await her repeat troponin and D-dimer. 1207 the D-dimer was not elevated and was 0.3. Her repeat troponin approximately 2-1/2 to 3 hours after onset of symptoms was still 0 at less than 0.3. She has no acute other risk factors for pulmonary embolism with negative Wells criteria and PERC score. With the repeat troponin still at 0 will check with cardiology about further management. Since she has known cardiac disease and states this felt similar to when she was having prior stent placement because of myocardial infarction and coronary artery blockages will see cardiology wanted to get her admitted for further testing and evaluation or do this as an outpatient. Will discuss with Dr. Rubio the on-call concrete rubber and see what he would recommend or if I need to speak with Dr. Lynch who has primarily cared for the patient in the past. Progress Note #5: Time: 12:29 Progress Note Discussed with on-call concrete rubber Dr. Rubio about the patient. Reviewed the patient presentation along with her vital signs, electrocardiogram, labs and response to treatment. With her troponin being less than 0.3 on 2 sets as well as no acute ST elevation on her electrocardiogram. She had improved symptoms with treatment in the ED. He advised starting the patient on isosorbide mononitrate to help with anginal type symptoms. We did discuss possibly increasing her metoprolol however since she is already running heart rate of 55- 60 at baseline and blood pressures been 100-115 systolic I felt that she would not tolerate increasing the metoprolol very well. He recommended having the patient call Dr. Lynch's office about getting an appointment and follow-up from the ER visit. Start the isosorbide mononitrate today and continue it daily. Counseled on return precautions of worsening symptoms or new chest pains. In the meantime given a note for light duty and limited lifting at work until cleared by cardiology. She did request a refill of her nitroglycerin as she felt like she did not have any refills on it and only had 1 sublingual nitroglycerin left. We will renew her prescription in the computer for the nitroglycerin sublingual. Also sent for the isosorbide mononitrate 30 mg once a day. From review of her previous medical prescriptions in December 2021 she did have isosorbide mononitrate 60 mg a day prescribed but is no longer taking that. Although inpatient care was considered for the patient with recurrent chest pain similar to pains in the past with need for cardiac stent, after discussion with call center consultant Communications Equipment Installer Dr. Rubio whe was felt to be stable and improved enough that she could be safely managed as an outpatient with the caveat of close follow up with Dr. Lynch and strict return precautions for recurrent or new symptoms. She also was advised of new medicines to take at home and continue current medicines she already has as well as refill of sublingual Ntg. Initial ECG Impression Date: Aug 12, 2022 Initial ECG Impression Time: 09:32 Initial ECG Rate: 82 Initial ECG Rhythm: Normal Sinus Initial ECG Comparisson: Unchanged (12/31/2021) Comment Based on her personal review and interpretation her electrocardiogram shows sinus rhythm with a heart rate of 82 bpm. AZ interval 128 ms. There is minimal [address] depression. She has Q waves in 2 3 aVF V4 through V6. She has no acute ST elevation. QT interval 390 ms with a QTc interval 429 ms. Overall appears similar to tracing from December 31, 2021. EKG : EKG Time: 11:48 Rate: 58 Rhythm: S.Hieu ECG Comparisson: Unchanged Comment Based on personal review and interpretation her repeat electrocardiogram shows sinus bradycardia with a heart rate of 58 bpm. AZ interval [address] elevation. QT interval 461 ms with a QTc interval 458 ms. Overall appears similar to today's initial tracing from 9:32 AM. Diagnostic Imaging Diagonstic Imaging: Xray Plain Films/CT/US/NM/MRI: chest Comments [facility] [place], [place] NAME: CHRIS FITCH REC#: [id number] PT STATUS: REG ER : 1970 PHYSICIAN: RODY LYN MD ADMIT DATE: 08/12/22/ER FS Draft Date of Exam:08/12/22 CHEST 1 VIEW AP/PA ONLY INDICATION: Chest pain. Frontal chest obtained at 09:37 a.m. compared to 12/31/2021. FINDINGS: Heart and mediastinal silhouette are normal in appearance. The lungs are clear. There is no pneumothorax or pleural fluid. IMPRESSION: Negative chest. Dictated on workstation # [id number] Dict: 08/12/22 0949 Trans: 08/12/22 0954 [id number] Interpreted by: HARJINDER IZAGUIRRE MD Electronically signed by: Reviewed: Reviewed by Me Departure Impression Primary Impression: Tightness in chest Additional Impression: Chest pain on exertion Disposition: HOME, SELF-CARE Condition: Improved Departure-Patient Inst. Decision time for Depature: 12:38 Referrals: SIMI LYNCH MD SELFNAHUM MD (PCP/Family) Primary Care Physician Patient Instructions: Chest Pain, Adult ED, Treatment Choices for Angina (Chest Pain) Add. Discharge Instructions: Start taking Isosorbide Mononitrate today and continue taking it each morning. Take this in addition to your regular medicines. Call the clinic this afternoon to make an appointment with Dr. Lynch for repeat evaluation of your heart. If you have return of your chest pain/pressure and tightness or worsening symptoms then return or be seen immediately. Scripts Nitroglycerin (Nitroglycerin) 0.4 Mg Tab.subl 0.4 MG SL NEEDED PRN for CHEST PAIN (ANGINA), #5 TAB Prov: RODY LYN MD 08/12/22 Isosorbide Mononitrate (Isosorbide Mononitrate ER) 30 Mg Tab.er.24h 30 MG PO DAILY for chest pain/angina for 30 Days, #30 TAB 0 Refills Prov: RODY LYN MD 08/12/22 Work/School Note: Work Release Form Date Seen in the Emergency Department: Aug 12, 2022 Return to Work: Aug 13, 2022 Restrictions: Need Release from Doctor Other Restrictions Listed Below: Light duty until cleared by Cardiology. No lifting >10 pounds RODY LYN MD Aug 12, 2022 09:45
[2022-08-12 09:54] LABS: BASOPHILS % (AUTO) 1 % (0-10); EOSINOPHILS # (AUTO) 0.2 10^3/uL (0.0-0.3); EOSINOPHILS % (AUTO) 3 % (0-10); HEMATOCRIT 39 % (35-52); HEMOGLOBIN 13.7 g/dL (11.5-16.0); LYMPHOCYTES # (AUTO) 1.6 10^3/uL (1.0-4.0); LYMPHOCYTES % (AUTO) 26 % (12-44); MEAN CORPUSCULAR HEMOGLOBIN 33 pg (25-34); MEAN CORPUSCULAR HGB CONC 35 g/dL (32-36); MEAN CORPUSCULAR VOLUME 94 fL (80-99); MEAN PLATELET VOLUME 11.1 fL (9.0-12.2); MONOCYTES # (AUTO) 0.4 10^3/uL (0.0-1.0); MONOCYTES % (AUTO) 7 % (0-12); NEUTROPHILS % (AUTO) 64 % (42-75); PLATELET COUNT 211 10^3/uL (130-400); WHITE BLOOD COUNT 6.3 10^3/uL (4.3-11.0)
--- NOTE | 2022-08-12 09:56 | Diagnostic Imaging Report ---
INDICATION: Chest pain. Frontal chest obtained at 09:37 a.m. compared to 12/31/2021. FINDINGS: Heart and mediastinal silhouette are normal in appearance. The lungs are clear. There is no pneumothorax or pleural fluid. IMPRESSION: Negative chest. Dictated by: Dictated on workstation # [id number]
[2022-08-12 10:10] LABS: INR 0.9 (0.8-1.4); PROTHROMBIN TIME PATIENT 12.3 SEC (12.2-14.7)
[2022-08-12 10:11] LABS: ALBUMIN 4.4 GM/DL (3.2-4.5); BILIRUBIN,TOTAL 0.4 MG/DL (0.1-1.0); CALCIUM 9.1 MG/DL (8.5-10.1); CREATININE SERUM 0.8 MG/DL (0.60-1.30); MAGNESIUM 1.9 MG/DL (1.6-2.4); POTASSIUM 4.2 MMOL/L (3.6-5.0)
[2022-08-12] MEDS ORDERED: ISOS30TA82 PO (12:36)
[2022-08-12 12:44] VITALS: BP 119/67
[2022-08-12] MEDS ORDERED: NITR0.4T42 SL (12:48)
== END 2022-08-12 12:45 | disposition home or self-care (01) ==
LOC: EDUNIT# 09:29 → ER FS 09:29
DX: R07.1 Chest pain on breathing (principal); R03.1 Nonspecific low blood-pressure reading; Z95.5 Presence of coronary angioplasty implant and graft; Z88.5 Allergy status to narcotic agent; Z28.310 Unvaccinated for COVID-19
CPT/HCPCS: 36415; 71045; 80053; 83690; 83735; 83874; 83880; 84484; 85025; 85379; 85610; 85730; 93005; 93041

== ENCOUNTER → 2022-08-25 | Outpatient (CLI) | payer OTHER ==
[~2022-08-25] MED LIST changes: +CATHETER FLUSH 10 ML SYR IVP PRN; +ISOS30TA82 PO; +REGADENOSON 0.4 MG/5 ML SYR (LEXISCAN) IV ONE
[2022-08-25 09:39] VITALS: BP 126/89
--- NOTE | 2022-08-25 13:51 | Cardiology Stress Test Report ---
Stress Test Report Date of Procedure/Referring: Date of Procedure: Aug 25, 2022 PCP Clark Sheppard MD Admitting Physician Admitting Physician: Attending Physician: Kashif Lynch MD Indications: CP Baseline Heart Rate: 58 Baseline Blood Pressure: Blood Pressure Systolic: 126 Blood Pressure Diastolic: 89 Baseline Vitals Vital Signs Date Time Temp Pulse Resp B/P (MAP) Pulse Ox O2 Delivery O2 Flow Rate FiO2 08/25/22 09:39 58 126/89 (101) Baseline EKG: Baseline EKG: NSR Summary After explaining the procedure to the patient, she signed a consent and then brought to the stress nuclear laboratory. Patient received 0.4 mg Lexiscan for stress test, ECG, heart rate and blood pressure were monitored continuously. Resting and stress dose of radio tracer were injected, imaging was acquired and reviewed in short axis, horizontal long axis and vertical long axis views. TID: 1.06 SSS: 0 SDS: 0 EF: 75 1. Excellent exercise tolerance for a total of 10 minutes on standard Tommy protocol, 11.7 METS. Achieved only 71% of maximal expected heart rate. Patient was unable to exercise any further, test was terminated and converted to Lexiscan Myoview stress test 2. Patient tolerated Lexiscan well 3. No significant ischemia or infarction noted on SPECT images 4. Normal left ventricular size, ejection fraction 75% Copy Copies To 1: CLARK SHEPPARD MD, BASHAR J MD Aug 25, 2022 13:51
== END ==
LOC: CARD 07:07
PROVIDERS: ATTEND Internal Medicine Cardiovascular Disease
DX: I25.10 Atherosclerotic heart disease of native coronary artery without angina pectoris (principal); I10 Essential (primary) hypertension; R53.82 Chronic fatigue, unspecified
CPT/HCPCS: 78452; 93017; A9502

== ENCOUNTER → 2022-08-26 | Outpatient (CLI) | payer OTHER ==
[~2022-08-26] MED LIST changes: -CATHETER FLUSH 10 ML SYR IVP PRN; -REGADENOSON 0.4 MG/5 ML SYR (LEXISCAN) IV ONE
== END ==
LOC: CARDFS 08:54
PROVIDERS: ATTEND Internal Medicine Cardiovascular Disease
DX: I10 Essential (primary) hypertension (principal); I25.10 Atherosclerotic heart disease of native coronary artery without angina pectoris; R53.82 Chronic fatigue, unspecified
CPT/HCPCS: 93306

== ENCOUNTER 2022-09-30 01:03 | Emergency (ER) | payer OTHER ==
[~2022-09-30] VITALS: Ht 152 cm; Wt 60.8 kg
--- NOTE | 2022-09-30 01:25 | ED Head Injury ---
General Chief Complaint: Head/Cervical Problems Stated Complaint: FELL,HIT HEAD Source: patient Exam Limitations: no limitations History of Present Illness Date Seen by Provider: Sep 30, 2022 Time Seen by Provider: 01:10 Initial Comments 52yoF with PMH of CAD on Plavix coming in after slipping in the shower 2 days ago and hitting the back of her head. She believes she did pass out briefly. Has a headache now that she took Tylenol for earlier. States she feels slightly confused at times, but not currently. Otherwise denies any other acute complaints. Allergies and Home Medications Allergies Coded Allergies: meperidine (Verified Allergy, Unknown, 09/22/05) Patient Home Medication List Home Medication List Reviewed: Yes Aspirin (Aspirin EC) 81 Mg Tablet.dr, 81 MG PO DAILY, (Reported) Entered as Reported by: AMY AYALA on 05/06/20 0850 Atorvastatin Calcium (Atorvastatin Calcium) 80 Mg Tablet, 80 MG PO HS, (Reported) Entered as Reported by: AMY AYALA on 05/06/20 0850 Isosorbide Mononitrate (Isosorbide Mononitrate ER) 60 Mg Tab, 60 MG PO DAILY Prescribed by: CAITLYN RIVERA on 12/31/21 0613 Isosorbide Mononitrate (Isosorbide Mononitrate ER) 30 Mg Tab.er.24h, 30 MG PO DAILY Prescribed by: RODY LYN on 08/12/22 1236 Lisinopril (Lisinopril) 10 Mg Tablet, 10 MG PO DAILY, (Reported) Entered as Reported by: AMY AYALA on 02/18/20 1549 Metoprolol Succinate (Metoprolol Succinate) 25 Mg Tab.er.24h, 25 MG PO DAILY, (Reported) Entered as Reported by: AMY AYALA on 05/06/20 0850 Nitroglycerin (Nitroglycerin) 0.4 Mg Tab.subl, 0.4 MG SL NEEDED PRN for CHEST PAIN (ANGINA) Prescribed by: RODY LYN on 08/12/22 1248 Prochlorperazine Maleate (Compazine) 10 Mg Tablet, 10 MG PO Q8H PRN for headache Prescribed by: CAITLYN RIVERA on 09/30/22 0126 Sertraline HCl (Sertraline HCl) 100 Mg Tablet, 100 MG PO DAILY, (Reported) Entered as Reported by: AMY AYALA on 02/18/20 1549 Ticagrelor (Brilinta) 90 Mg Tablet, 90 MG PO BID, (Reported) Entered as Reported by: AMY AYALA on 05/06/20 0850 Review of Systems Review of Systems Constitutional: No fever Eyes: No Symptoms Reported Ears, Nose, Mouth, Throat: no symptoms reported Respiratory: no symptoms reported Cardiovascular: no symptoms reported Gastrointestinal: no symptoms reported Genitourinary: no symptoms reported Musculoskeletal: no symptoms reported Psychiatric/Neurological: See HPI Past Fwutnpk-Ansluh-Dcwprz Hx Patient Social History Substance use?: No Immunizations Up To Date Tetanus Booster (TDap): Unknown Influenza Vaccine Up-to-Date: Yes; Up-to-Date First/Initial COVID19 Vaccinat: denies Second COVID19 Vaccination Hector: denies Third COVID19 Vaccination Date: denies Seasonal Allergies Seasonal Allergies: No Past Medical History Surgery/Hospitalization HX: Hypertension, Hypercholesterolemia, CAD, [place] with stents Surgeries: Yes Section, Coronary Stent, Hysterectomy Respiratory: No Cardiac: Yes Coronary Artery Disease, Hypertension 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 oz. 61.096495vm; 24.00 BMI Method:Stated General Appearance: WD/WN, no apparent distress HEENT: PERRL/EOMI, normal ENT inspection, pharynx normal Neck: non-tender, full range of motion, supple, normal inspection Cardiovascular: regular rate, rhythm, no edema, no murmur Respiratory: chest non-tender, lungs clear, normal breath sounds, no respiratory distress, no accessory muscle use Gastrointestinal: normal bowel sounds, non tender, soft; No distended, No guarding, No rebound Back: normal inspection, no CVA tenderness, no vertebral tenderness Extremities: normal range of motion, non-tender, normal inspection, no pedal edema, no calf tenderness Psychiatric: alert, oriented x 3 Crainal Nerves: normal hearing, normal speech, PERRL Coordination/Gait: normal gait Motor/Sensory: no motor deficit, no sensory deficit Skin: normal color, warm/dry Galen Coma Score Best Eye Response: (4) Open Spontaneously Best Verbal Response: (5) Oriented Best Motor Response: (6) Obeys Commands Progress/Results/Core Measures Results/Orders My Orders Orders - CAITLYN RIVERA MD Ct Head/Cervical Spine Wo (09/30/22 01:16) Vital Signs/I&O 09/30/22 01:14 Temp 36.6 Pulse 65 Resp 98 B/P (MAP) 113/68 (83) O2 Delivery Room Air Progress Progress Note : Progress Note 52yoF with above history coming in after she hit her head 2 days ago. ABCs intact, GCS 15 and VSS on presentation. Physical exam with no concerning findings. Given that she takes Plavix, CT head and C spine ordered. Discussed giving medications for her headache, but she drove here so do not want to sedate her. If her CT head is normal appearing, could try some toradol IM. CT imaging negative for any large bleed or fracture on my interpretation. Overnight stat rad read also reviewed and was negative. I believe she is otherwise stable for discharge with outpatient follow up. Sent home with strict return precautions. Sent prescriptions meds for headache at home. Diagnostic Imaging Diagonstic Imaging: CT (head and c spine) Departure Impression Primary Impression: Concussion with brief (less than one hour) loss of consciousness Disposition: 01 HOME, SELF-CARE Condition: Stable Departure-Patient Inst. Decision time for Depature: 03:06 Referrals: NAHUM WRIGHT MD (PCP/Family) Primary Care Physician Patient Instructions: Concussion, Adult (DC) Add. Discharge Instructions: Fortunately there is no bleeding in your brain or significant injury. You CT of your neck is also normal without anything broken. Tylenol is the safest med with your cardiac history and with you on Plavix. Compazine was sent to your pharmacy. You can take this with benadryl at night to help with your headache and to help you sleep. With your concussion it will take often a couple weeks for your headache and other symptoms to improve. You may feel confused at times. Follow back up with your regular doctor if your symptoms are not improving after the next week or so. Scripts Prochlorperazine Maleate (Compazine) 10 Mg Tablet 10 MG PO Q8H PRN for headache for 3 Days, #9 TAB take with over the counter benadryl at night Prov: CAITLYN RIVERA MD 09/30/22 Work/School Note: Work Release Form Date Seen in the Emergency Department: Sep 30, 2022 Return to Work: Oct 01, 2022 Restrictions: No Restrictions CAITLYN RIVERA MD Sep 30, 2022 01:25
[2022-09-30] MEDS ORDERED: PROC-1 PO (01:26)
[2022-09-30 03:14] VITALS: BP 113/68
[2022-09-30] MEDS ORDERED: KETOROLAC 15 MG/ML VIAL IM ONE (03:15)
--- NOTE | 2022-09-30 06:40 | Diagnostic Imaging Report ---
PROCEDURE: CT head and CT cervical spine without contrast. TECHNIQUE: Multiple contiguous axial images were obtained through the brain and cervical spine without the use of intravenous contrast. Sagittal and coronal reformations through the cervical spine were then performed. Auto Exposure Controls were utilized during the CT exam to meet ALARA standards for radiation dose reduction. INDICATION: Trauma. Fall. Head injury. Anticoagulation therapy. COMPARISON: None. FINDINGS: CT HEAD: No intracranial hemorrhage, mass effect, hydrocephalus or extra-axial fluid collections. No CT evidence for territorial infarction. Osseous structures are intact. Visualized paranasal sinuses and mastoids are clear. CT CERVICAL SPINE: Normal alignment. Vertebral body heights are preserved. No fractures. Mild spondylotic changes result in no CT evidence of high-grade spinal canal stenosis. Visualized paravertebral soft tissues are unremarkable. Lung apices are clear. IMPRESSION: No acute intracranial or cervical spine CT findings. Dictated by: Dictated on workstation # [id number]
== END 2022-09-30 03:14 | disposition home or self-care (01) ==
LOC: EDUNIT# 01:03 → ER FS 01:04
DX: S06.0X9A Concussion with loss of consciousness of unspecified duration, initial encounter (principal); I25.10 Atherosclerotic heart disease of native coronary artery without angina pectoris; I25.2 Old myocardial infarction; Z95.5 Presence of coronary angioplasty implant and graft; Z28.310 Unvaccinated for COVID-19; Z79.02 Long term (current) use of antithrombotics/antiplatelets; W18.2XXA Fall in (into) shower or empty bathtub, initial encounter; W22.8XXA Striking against or struck by other objects, initial encounter
CPT/HCPCS: 70450; 72125

== ENCOUNTER 2023-06-17 14:55 | Emergency (ER) | payer OTHER ==
[~2023-06-17 14:55] MED LIST changes: +PROC-1 PO
[2023-06-17] MEDS ORDERED: ONDANSETRON INJECTION 4 MG/2 ML (SDV) IVP STA (15:04)
[2023-06-17] MEDS ORDERED: morphine INJ 10 MG/ML 1ML (SYR OR VIAL) IVP STA (15:04)
--- NOTE | 2023-06-17 15:06 | ED Chest Pain ---
General Chief Complaint: Chest Pain Stated Complaint: CHEST PAIN Source: patient History of Present Illness Date Seen by Provider: Jun 17, 2023 Time Seen by Provider: 15:00 Initial Comments 53-year-old female presenting with complaints of sudden onset of chest pain. She states that she felt short of breath earlier today. She developed chest pain as she was leaving work. She felt like it was sharp as well as pressure and felt similar to when she had to have stent placed in 2019. She follows with Dr. Lynch with cardiology and [place]. She did try taking 3 sublingual nitroglycerin but did not feel that it made any significant change in her pain. She presented to the emergency department. After that the pain started. She denies doing anything to cause the pain. She did not take any aspirin or any blood thinner with the chest pain today. Timing/Duration: 1/2 hour Severity/Quality: severe, pressure, sharp Location: substernal Radiation: no radiation Activities at Onset: activity (Leaving work) Prior CP/Workup: angina, cardiac cath, echocardiography, stress test Modifying Factors: worse with exercise ASA po VP STRATEGY: No NTG SL VP STRATEGY: Yes Associated Symptoms: No abdominal pain, No back pain, No diaphoresis, No dizziness, No edema, No fatigue, No fever/chills, No headache, No heartburn, No nausea/vomiting, No rash; shortness of breath; No swelling/lump in chest, No syncope Allergies and Home Medications Allergies Coded Allergies: meperidine (Verified Allergy, Unknown, 09/22/05) Patient Home Medication List Home Medication List Reviewed: Yes Aspirin (Aspirin EC) 81 Mg Tablet.dr, 81 MG PO DAILY, (Reported) Entered as Reported by: AMY AYALA on 05/06/20 0850 Atorvastatin Calcium (Atorvastatin Calcium) 80 Mg Tablet, 80 MG PO HS, (Reported) Entered as Reported by: AMY AYALA on 05/06/20 0850 Isosorbide Mononitrate (Isosorbide Mononitrate ER) 60 Mg Tab, 60 MG PO DAILY Prescribed by: CAITLYN RIVERA on 12/31/21 0613 Isosorbide Mononitrate (Isosorbide Mononitrate ER) 30 Mg Tab.er.24h, 30 MG PO DAILY Prescribed by: RODY LYN on 08/12/22 1236 Lisinopril (Lisinopril) 10 Mg Tablet, 10 MG PO DAILY, (Reported) Entered as Reported by: AMY AYALA on 02/18/20 1549 Metoprolol Succinate (Metoprolol Succinate) 25 Mg Tab.er.24h, 25 MG PO DAILY, (Reported) Entered as Reported by: AMY AYALA on 05/06/20 0850 Nitroglycerin (Nitroglycerin) 0.4 Mg Tab.subl, 0.4 MG SL NEEDED PRN for CHEST PAIN (ANGINA) Prescribed by: RODY LYN on 08/12/22 1248 Prochlorperazine Maleate (Compazine) 10 Mg Tablet, 10 MG PO Q8H PRN for headache Prescribed by: CAITLYN RIVERA on 09/30/22 0126 Sertraline HCl (Sertraline HCl) 100 Mg Tablet, 100 MG PO DAILY, (Reported) Entered as Reported by: AMY AYALA on 02/18/20 1549 Ticagrelor (Brilinta) 90 Mg Tablet, 90 MG PO BID, (Reported) Entered as Reported by: AMY AYALA on 05/06/20 0850 Review of Systems Review of Systems Constitutional: No chills, No fever EENTM: No Symptoms Reported Respiratory: See HPI Cardiovascular: See HPI Gastrointestinal: No Symptoms Reported Genitourinary: No Symptoms Reported Musculoskeletal: no symptoms reported Skin: no symptoms reported Psychiatric/Neurological: Anxiety Past Bsanurb-Almgea-Cjsjfm Hx Immunizations Up To Date Tetanus Booster (TDap): Unknown First/Initial COVID19 Vaccinat: denies Second COVID19 Vaccination Hector: denies Third COVID19 Vaccination Date: denies Seasonal Allergies Seasonal Allergies: No Past Medical History Surgery/Hospitalization HX: Hypertension, Hypercholesterolemia, CAD, [place] with stents Surgeries: Yes Section, Coronary Stent, Hysterectomy Respiratory: No Cardiac: Yes Coronary Artery Disease, Hypertension 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 oz. 61.307123zn; 26.00 BMI Method:Stated General Appearance: Anxious, Mild Distress HEENT: PERRL/EOMI Respiratory: Chest Non Tender, Lungs Clear, Normal Breath Sounds, No Accessory Muscle Use, No Respiratory Distress Cardiovascular: Regular Rate, Rhythm, Normal Peripheral Pulses Gastrointestinal: Normal Bowel Sounds, No Pulsatile Mass, Non Tender, Soft Rectal: Deferred Extremity: Normal Capillary Refill, Normal Inspection, No Pedal Edema Neurologic/Psychiatric: Alert, Oriented x3, planer mill grader II-XII Norm as Tested Skin: Normal Color, Warm/Dry Progress/Results/Core Measures Results/Orders Lab Results Laboratory Tests Test 06/17/23 15:04 06/17/23 16:52 Range/Units White Blood Count 7.1 4.3-11.0 10^3/uL Red Blood Count 4.01 3.80-5.11 10^6/uL Hemoglobin 12.8 11.5-16.0 g/dL Hematocrit 39 35-52 % Mean Corpuscular Volume 97 80-99 fL Mean Corpuscular Hemoglobin 32 25-34 pg Mean Corpuscular Hemoglobin Concent 33 32-36 g/dL Red Cell Distribution Width 13.3 10.0-14.5 % Platelet Count 216 130-400 10^3/uL Mean Platelet Volume 11.1 9.0-12.2 fL Immature Granulocyte % (Auto) 0 % Neutrophils (%) (Auto) 59 42-75 % Lymphocytes (%) (Auto) 32 12-44 % Monocytes (%) (Auto) 8 0-12 % Eosinophils (%) (Auto) 1 0-10 % Basophils (%) (Auto) 1 0-10 % Neutrophils # (Auto) 4.2 1.8-7.8 10^3/uL Lymphocytes # (Auto) 2.3 1.0-4.0 10^3/uL Monocytes # (Auto) 0.5 0.0-1.0 10^3/uL Eosinophils # (Auto) 0.1 0.0-0.3 10^3/uL Basophils # (Auto) 0.1 0.0-0.1 10^3/uL Immature Granulocyte # (Auto) 0.0 0.0-0.1 10^3/uL Prothrombin Time 12.6 12.2-14.7 SEC INR Comment 0.9 0.8-1.4 Activated Partial Thromboplast Time 24 24-35 SEC Sodium Level 138 135-145 MMOL/L Potassium Level 4.0 3.6-5.0 MMOL/L Chloride Level 101 98-107 MMOL/L Carbon Dioxide Level 25 21-32 MMOL/L Anion Gap 12 5-14 MMOL/L Blood Urea Nitrogen 18 7-18 MG/DL Creatinine 0.77 0.60-1.30 MG/DL Estimat Glomerular Filtration Rate 93 BUN/Creatinine Ratio 23 Glucose Level 100 70-105 MG/DL Calcium Level 9.5 8.5-10.1 MG/DL Corrected Calcium 9.2 8.5-10.1 MG/DL Magnesium Level 2.0 1.6-2.4 MG/DL Total Bilirubin 0.6 0.1-1.0 MG/DL Aspartate Amino Transf (AST/SGOT) 23 5-34 U/L Alanine Aminotransferase (ALT/SGPT) 20 0-55 U/L Alkaline Phosphatase 100 40-136 U/L Troponin I < 0.30 < 0.30 <0.30 NG/ML Pro-B-Type Natriuretic Peptide 241.7 H <125.0 PG/ML Total Protein 7.5 6.4-8.2 GM/DL Albumin 4.4 3.2-4.5 GM/DL Lipase 17 8-78 U/L Serum Alcohol < 10 <10 MG/DL My Orders Orders - RODY LYN MD Cbc And Automated Diff (06/17/23 15:04) Magnesium (06/17/23 15:04) Chest 1 View Ap/Pa Only (06/17/23 15:04) Ekg Tracing (06/17/23 15:04) Comprehensive Metabolic Panel (06/17/23 15:04) Protime With Inr (06/17/23 15:04) Partial Thromboplastin Time (06/17/23 15:04) O2 (06/17/23 15:04) Monitor-Rhythm Ecg Trace Only (06/17/23 15:04) Aspirin Chewable Tablet (Aspirin Chewabl (06/17/23 15:15) Ed Iv/Invasive Line Start (06/17/23 15:04) Lipase (06/17/23 15:04) Troponin I Fs (06/17/23 15:04) Probnp Fs (06/17/23 15:04) Morphine Injection (Morphine Injection (06/17/23 15:04) Ondansetron Injection (Ondansetron Inj (06/17/23 15:04) Alcohol (06/17/23 15:07) Ua Culture If Indicated (06/17/23 15:07) Drug Screen Stat (Urine) (06/17/23 15:07) Troponin I Fs (06/17/23 16:42) Medications Given in ED Current Medications Medications Dose Ordered Sig/Parmjit Route Start Time Stop Time Status Last Admin Dose Admin Aspirin 324 mg ONCE ONCE PO 06/17/23 15:15 06/17/23 15:16 DC 06/17/23 15:16 324 MG Vital Signs/I&O 06/17/23 06/17/23 06/17/23 06/17/23 14:55 16:00 17:00 17:39 Pulse 88 71 57 65 Resp 20 18 16 16 B/P (MAP) 115/61 (79) 111/71 (84) 114/69 (84) 116/66 Pulse Ox 99 99 99 100 O2 Delivery Room Air Room Air Room Air Progress Progress Note #1: Progress Note Differential diagnosis includes myocardial infarction, non-STEMI, STEMI, pleuris y, musculoskeletal chest pain, GERD, esophageal spasm. Establish peripheral IV access and send labs for complete blood count, c omprehensive metabolic profile, magnesium, troponin, proBNP, coagulation factors. 1 view chest x-ray to evaluate for pathology in the chest. Electrocardiogram to look for signs of ischemia. Placed on cardiac secured entrance monitor and my initial interpretation is she is showing a sinus rhythm with heart rate in the 60s. There is no ectopy or ST elevation. Administer aspirin 324 mg p.o. x1 since she did not take any at home. As she was not feeling the nitroglycerin was helping we will try morphine 4 mg IV. Progress Note #2: Progress Note Electrocardiogram did not show any ST elevation or ischemia. Her complete blood count was not showing any acute significant abnormality. Comprehensive metabolic profile also was not showing any acute electrolyte abnormality and troponin was less than 0.3. Will repeat the troponin at 2 hours and see if there has been any change. Patient reported improvement in her symptoms with getting the aspirin and morphine. Progress Note #3: Progress Note Chest x-ray did not show evidence of rib fractures since previous x-ray in August 2022. Patient had a repeat troponin that was still less than 0.3. Her pain has resolved during the ED stay. Counseled on follow-up and return precautions. 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 Lynch this upcoming week. Be seen sooner if having worsening symptoms or new concerns. Some of the pain could be related back to these rib fractures as she states that she only recently has been able to cough and deep breathe without significant pain. Initial ECG Impression Date: Jun 17, 2023 Initial ECG Impression Time: 15:01 Initial ECG Rate: 91 Initial ECG Rhythm: Normal Sinus Initial ECG Comparisson: Unchanged (08/12/2022) Comment Echocardiogram shows sinus rhythm with heart rate of 91 bpm. [place] interval 140 ms. There is right ventricular conduction delay. She has no acute ST elevation. QT interval 380 ms with a QTc interval 429 ms. Overall appears similar to tracing from August 12, 2022. Diagnostic Imaging Diagonstic Imaging: Xray Plain Films/CT/US/NM/MRI: chest Comments [facility]. [place], [place] NAME: CHRIS FITCH [facility] REC#: [id number] PT STATUS: REG ER : 1970 PHYSICIAN: RODY LYN MD ADMIT DATE: 06/17/23/ER FS Draft Date of Exam:06/17/23 CHEST 1 VIEW AP/PA ONLY CLINICAL INDICATION: Patient with chest pain and history of 2 heart attacks. EXAM: Chest x-ray PA and lateral views. COMPARISON: Chest x-ray dated 08/12/2022. FINDINGS: Lungs/pleura: Lungs are clear. There is no pneumothorax. There is no pleural effusion. Mediastinum: Unremarkable. Pulmonary vasculature: Unremarkable. Heart: Unremarkable. Bones/extrathoracic soft tissue: There is interval development of slightly displaced fractures involving the lateral aspect of the right T7 and T8 ribs of unknown age. There are small degenerative spurs involving the thoracic spine.. IMPRESSION: 1: There is interval development of slightly displaced fractures involving the lateral aspect of the right T7 and T8 ribs of unknown age. Clinical correlation for trauma in this region is suggested. 2: Otherwise, there is no radiographic evidence of acute cardiopulmonary process. Dictated on workstation # [id number] Dict: 06/17/23 1535 Trans: 06/17/23 1541 CVB [id number] Interpreted by: RON NEVAREZ MD Electronically signed by: Reviewed: Reviewed by Me Departure Impression Primary Impression: Atypical chest pain Disposition: 01 HOME, SELF-CARE Condition: Improved Departure-Patient Inst. Decision time for Depature: 17:36 Referrals: SIMI LYNCH MD SELF,NAHUM CABELLO (PCP/Family) Primary Care Physician Patient Instructions: Chest Pain, Adult ED, Heart Healthy Diet Add. Discharge Instructions: Continue on your home medications. Make sure you are taking at least a 81 mg baby aspirin once a day. Follow-up with Dr. Lynch next week about your chest pain. Be seen sooner if having worsening symptoms or new concerns. All discharge instructions reviewed with patient and/or family. Voiced understanding. RODY LYN MD Jun 17, 2023 15:06
[2023-06-17 15:09] LABS: BASOPHILS # (AUTO) 0.1 10^3/uL (0.0-0.1); BASOPHILS % (AUTO) 1 % (0-10); EOSINOPHILS # (AUTO) 0.1 10^3/uL (0.0-0.3); EOSINOPHILS % (AUTO) 1 % (0-10); HEMATOCRIT 39 % (35-52); HEMOGLOBIN 12.8 g/dL (11.5-16.0); LYMPHOCYTES # (AUTO) 2.3 10^3/uL (1.0-4.0); LYMPHOCYTES % (AUTO) 32 % (12-44); MEAN CORPUSCULAR HEMOGLOBIN 32 pg (25-34); MEAN CORPUSCULAR HGB CONC 33 g/dL (32-36); MEAN CORPUSCULAR VOLUME 97 fL (80-99); MEAN PLATELET VOLUME 11.1 fL (9.0-12.2); MONOCYTES # (AUTO) 0.5 10^3/uL (0.0-1.0); MONOCYTES % (AUTO) 8 % (0-12); NEUTROPHILS # (AUTO) 4.2 10^3/uL (1.8-7.8); NEUTROPHILS % (AUTO) 59 % (42-75); PLATELET COUNT 216 10^3/uL (130-400); WHITE BLOOD COUNT 7.1 10^3/uL (4.3-11.0)
[2023-06-17] MEDS ORDERED: ASPIRIN 81 MG CHEWABLE TABLET PO ONE (15:15)
[2023-06-17 15:21] LABS: INR 0.9 (0.8-1.4); PROTHROMBIN TIME PATIENT 12.6 SEC (12.2-14.7)
[2023-06-17 15:23] LABS: BILIRUBIN,TOTAL 0.6 MG/DL (0.1-1.0); CALCIUM 9.5 MG/DL (8.5-10.1); CHLORIDE 101 MMOL/L (98-107); SODIUM 138 MMOL/L (135-145)
[2023-06-17 15:28] LABS: CARBON DIOXIDE 25 MMOL/L (21-32)
[2023-06-17 15:29] LABS: ALANINE AMINOTRANSFERASE 20 U/L (0-55); ALBUMIN 4.4 GM/DL (3.2-4.5); ALKALINE PHOSPHATASE 100 U/L (40-136); BUN/CREATININE RATIO 23; CREATININE SERUM 0.77 MG/DL (0.60-1.30); GFR ESTIMATED 93; GLUCOSE 100 MG/DL (70-105); LIPASE 17 U/L (8-78); TOTAL PROTEIN 7.5 GM/DL (6.4-8.2)
--- NOTE | 2023-06-17 15:41 | Diagnostic Imaging Report ---
CLINICAL INDICATION: Patient with chest pain and history of 2 heart attacks. EXAM: Chest x-ray PA and lateral views. COMPARISON: Chest x-ray dated 08/12/2022. FINDINGS: Lungs/pleura: Lungs are clear. There is no pneumothorax. There is no pleural effusion. Mediastinum: Unremarkable. Pulmonary vasculature: Unremarkable. Heart: Unremarkable. Bones/extrathoracic soft tissue: There is interval development of slightly displaced fractures involving the lateral aspect of the right T7 and T8 ribs of unknown age. There are small degenerative spurs involving the thoracic spine.. IMPRESSION: 1: There is interval development of slightly displaced fractures involving the lateral aspect of the right T7 and T8 ribs of unknown age. Clinical correlation for trauma in this region is suggested. 2: Otherwise, there is no radiographic evidence of acute cardiopulmonary process. Dictated by: Dictated on workstation # [id number]
[2023-06-17 17:39] VITALS: BP 116/66
== END 2023-06-17 17:54 | disposition home or self-care (01) ==
LOC: EDUNIT# 14:55 → ER FS 14:56
DX: R07.89 Other chest pain (principal); I25.2 Old myocardial infarction; Z86.79 Personal history of other diseases of the circulatory system
CPT/HCPCS: 36415; 71045; 80053; 83690; 83735; 83880; 84484; 85025; 85610; 85730; 93005; 93041; 96374; 96375; 99284; G0480; 80320

== ENCOUNTER → 2023-07-13 | Outpatient (CLI) | payer OTHER ==
[~2023-07-13] MED LIST changes: +CATHETER FLUSH 10 ML SYR IVP PRN; +REGADENOSON 0.4 MG/5 ML SYR IV ONE
[2023-07-13 09:12] VITALS: BP 127/89
[2023-07-13 09:16] VITALS: BP 119/73
--- NOTE | 2023-07-13 12:46 | Cardiology Stress Test Report ---
Stress Test Report Date of Procedure/Referring: Date of Procedure: Jul 13, 2023 PCP Clark Sheppard MD Admitting Physician Admitting Physician: Attending Physician: Jenny Caldwell Pa-C Baseline Heart Rate: 48 Baseline Blood Pressure: Blood Pressure Systolic: 119 Blood Pressure Diastolic: 73 Baseline Vitals Vital Signs Date Time Temp Pulse Resp B/P (MAP) Pulse Ox O2 Delivery O2 Flow Rate FiO2 07/13/23 09:12 80 19 127/89 (102) Baseline EKG: Baseline EKG: NSR Summary After explaining the procedure to the patient, she signed a consent and then brought to the stress nuclear laboratory. Patient received 0.4 mg Lexiscan for stress test, ECG, heart rate and blood pressure were monitored continuously. Resting and stress dose of radio tracer were injected, imaging was acquired and reviewed in short axis, horizontal long axis and vertical long axis views. TID: 1.07 SSS: 0 SDS: 0 EF: 73 Chronotropic incompetence, patient was able to exercise for 7 minutes and 20 seconds on standard Tommy protocol, achieved maximal heart rate of 94, test was terminated and converted to Lexiscan Myoview stress test Patient tolerated Lexiscan well No significant ischemia or infarction on SPECT images Normal left ventricular size, ejection fraction 73% Copy Copies To 1: CLARK SHEPPARD MD, BASHAR J MD Jul 13, 2023 12:46
== END ==
LOC: CARD 07:20
PROVIDERS: ATTEND Physician Assistant
DX: I10 Essential (primary) hypertension (principal); I25.10 Atherosclerotic heart disease of native coronary artery without angina pectoris; R53.82 Chronic fatigue, unspecified
CPT/HCPCS: 78452; 93017; A9502